=== PATIENT | male | born 1940 | race Caucasian/White ===

== ENCOUNTER → 2020-03-13 10:58 | Outpatient (BNVA) | payer MEDICARE, OTHER, SELFPAY | PROVIDERS: Family Provider Family Medicine; PCP Family Medicine; Visit Provider Registered Nurse | DX: I10 Essential (primary) hypertension (principal); Z00.00 Encounter for general adult medical examination without abnormal findings; N40.0 Benign prostatic hyperplasia without lower urinary tract symptoms; E11.9 Type 2 diabetes mellitus without complications; K21.9 Gastro-esophageal reflux disease without esophagitis | CPT/HCPCS: 80053; 83036; 84153; 85025 ==

== ENCOUNTER → 2020-08-02 10:25 | Outpatient (BNVA) | payer MEDICARE, OTHER, SELFPAY | PROVIDERS: Family Provider Family Medicine; PCP Family Medicine; Visit Provider Nurse Practitioner | DX: R39.9 Unspecified symptoms and signs involving the genitourinary system (principal) | CPT/HCPCS: 81000; 87086 ==

== ENCOUNTER → 2020-08-15 14:53 | Outpatient (BNVA) | payer MEDICARE, OTHER, SELFPAY | PROVIDERS: Family Provider Family Medicine; PCP Family Medicine; Visit Provider Nurse Practitioner Family | DX: R31.9 Hematuria, unspecified (principal); R30.0 Dysuria | CPT/HCPCS: 80053; 81000; 87077; 87086; 87186 ==

== ENCOUNTER → 2020-08-28 14:06 | Outpatient (BNVA) | payer MEDICARE, OTHER, SELFPAY | PROVIDERS: Family Provider Family Medicine; PCP Family Medicine; Visit Provider Nurse Practitioner Family | DX: R31.9 Hematuria, unspecified (principal) | CPT/HCPCS: 80053 ==

== ENCOUNTER → 2021-01-20 11:10 | Outpatient (BNVA) | payer MEDICARE, OTHER, SELFPAY | PROVIDERS: Family Provider Family Medicine; PCP Family Medicine; Visit Provider Registered Nurse | DX: N39.0 Urinary tract infection, site not specified (principal) | CPT/HCPCS: 81000 ==

== ENCOUNTER → 2021-02-21 09:51 | Outpatient (BNVA) | payer MEDICARE, OTHER, SELFPAY | PROVIDERS: Family Provider Family Medicine; PCP Family Medicine; Visit Provider Registered Nurse | DX: Z00.00 Encounter for general adult medical examination without abnormal findings (principal); E11.9 Type 2 diabetes mellitus without complications; N40.0 Benign prostatic hyperplasia without lower urinary tract symptoms; Z13.6 Encounter for screening for cardiovascular disorders | CPT/HCPCS: 80053; 80061; 81000; 83036; 85025; G0103 ==

== ENCOUNTER → 2022-06-30 09:28 | Outpatient (BNVA) | payer MEDICARE, OTHER, SELFPAY | PROVIDERS: Family Provider Family Medicine; PCP Registered Nurse; Visit Provider Registered Nurse | DX: E11.9 Type 2 diabetes mellitus without complications (principal); E78.5 Hyperlipidemia, unspecified; I10 Essential (primary) hypertension; F51.05 Insomnia due to other mental disorder; F40.9 Phobic anxiety disorder, unspecified; Z00.00 Encounter for general adult medical examination without abnormal findings; Z13.6 Encounter for screening for cardiovascular disorders; N40.0 Benign prostatic hyperplasia without lower urinary tract symptoms | CPT/HCPCS: 80053; 80061; 83036; 85025 ==

== ENCOUNTER → 2023-07-16 13:42 | Outpatient (BNVA) | payer MEDICARE, OTHER, SELFPAY | PROVIDERS: Family Provider Family Medicine; PCP Registered Nurse; Visit Provider Registered Nurse | DX: J06.9 Acute upper respiratory infection, unspecified (principal) | CPT/HCPCS: 87400; 87426 ==

== ENCOUNTER 2024-12-25 17:23 | Inpatient (IN) | payer MEDICARE, OTHER, SELFPAY ==
[2024-12-25] VITALS (7 sets, daily range): BP systolic 99–146; BP diastolic 50–96; PULSE 78–100; RESP 17–30; TEMP 36.6–37.3; O2SAT 93–95
--- NOTE | 2024-12-25 17:26 | ECG_ITS ---
[facility] Test Date: 2024-12-25 Pat Name: Maldonado Madrigal Department: Room: Gender: Male Boarder Steam: : 1940 Requested By: Fallon Carl Order Number: [id number] Timothy MD: Charla De Leon M.D. Measurements Intervals [place] Rate: 92 P: 37 MI: 153 QRS: 76 QRSD: 134 T: -9 QT: 371 QTc: 460 Interpretive Statements SINUS RHYTHM LEFT BUNDLE BRANCH BLOCK [120+ ms QRS DURATION, 80+ ms Q/S IN V1/V2, 85+ ms R IN I/aVL/V5/V6] Compared to ECG 03/01/2017 00:38:47 No significant changes Electronically Signed On 12-25-2024 20:26:40 SUSPECT ARTIST by Charla De Leon M.D. [email or web address]
--- NOTE | 2024-12-25 17:27 | XRR_ITS ---
PROCEDURE INFORMATION: Exam: XR Chest Exam date and time: 12/25/2024 5:31 PM Age: 84 years old Clinical indication: Other: Weakness TECHNIQUE: Imaging protocol: Radiologic exam of the chest. Views: 1 view. COMPARISON: No relevant prior studies available. FINDINGS: Lungs: No focal consolidation. Compressive atelectasis at the left base. Pleural spaces: Small left pleural effusion. Heart/Mediastinum: No cardiomegaly. Prominent AP window. Calcified granulomas of the left hilum. Vasculature: Tortuous calcified aorta. Bones/joints: Degenerative change of the spine and shoulders. XR/XR chest 1V portable [id number] IMPRESSION: Small left pleural effusion with compressive atelectasis. Prominent AP window. Broad differential to include lymphadenopathy. Consider CT for further evaluation.
--- NOTE | 2024-12-25 17:32 | ED_ITS ---
HPI - Male Genitourinary 2 General: Chief complaint: ER Hold Stated complaint: weakness, Uti x 1 day Time Seen by Provider: 12/25/24 17:25 History of Present Illness: This is an 84-year-old man with a history of BPH and type 2 diabetes and hypertension who presents to the emergency room with weakness, confusion and concern for fever. He was diagnosed with a UTI yesterday and has received 1 dose of antibiotic. Apparently he became worse today so family called EMS. At this time he does not appear confused. He is alert and oriented. No focal motor deficits. He has had some rigors. Related Data Previous Rx's ?Medication ?Instructions ?Recorded lancets 28 gauge (FreeStyle #100 ea 01/17/21 Lancets) nitroglycerin 0.4 mg sublingual 0.4 mg sublingual Q5M PRN chest 12/12/21 tablet pain #20 tabs Nebulizer with supplies #1 ea 07/16/23 finasteride 5 mg tablet See Rx Instructions .Route 0 01/04/24 .COMPLEX #90 tabs lisinopril 10 mg tablet See Rx Instructions .Route 0 01/04/24 .COMPLEX #90 tabs metoprolol tartrate 50 mg tablet See Rx Instructions . Route 01/04/24 .COMPLEX #180 tabs mirtazapine 45 mg tablet See Rx Instructions .Route 0 01/04/24 .COMPLEX #90 tabs simvastatin 40 mg tablet See Rx Instructions .Route 0 01/04/24 .COMPLEX #90 tabs tamsulosin 0.4 mg capsule See Rx Instructions .Route 0 01/04/24 .COMPLEX #90 caps metformin 500 mg tablet 500 mg PO BID 90 days #180 t abs 09/06/24 omeprazole 20 mg capsule,delayed See Rx Instructions . Route 09/06/24 release .COMPLEX #180 caps Allergies Allergy/AdvReac Type Severity Reaction Status Date / Time sulfamethoxazole (From Allergy swelling Verified 09/06/24 08:55 Bactrim) trimethoprim (From Bactrim) Allergy swelling Verified 09/06/24 08:55 [facility] ED 2 [facility]: Medical History (Updated 12/25/24 @ 20:43 by Fallon Moya MD) BPH (benign prostatic hyperplasia) Type 2 diabetes mellitus Family History Other Cancer Social History Smoking and tobacco/nicotine status: never used tobacco/nicotine Alcohol intake: never Substance/Drug Use: never Adopted: No Caregiver/support person: No Lives independently: No Household members: spouse Marital status: Do you think of yourself as: Straight/Heterosexual Current gender identity: Male Physical Exam 2 Narrative: EXAM NARRATIVE: General: Alert, no acute distress. Skin: Warm, dry. Head: Normocephalic, atraumatic. Neck: Supple, trachea midline. Eye: Extraocular movements are intact. Ears, nose, mouth and throat: Dry oral mucosa Cardiovascular: Regular, Normal peripheral perfusion. Respiratory: Lungs are clear to auscultation, respirations are non-labored, breath sounds are equal, Symmetrical chest wall expansion. Gastrointestinal: Soft, Nontender, Non distended Musculoskeletal: Normal ROM, no deformity. Neurological: Alert and oriented, No focal neurological deficit observed. Psychiatric: Cooperative, appropriate mood & affect. Course 2 Vital Signs: Vital signs: Vital Signs Temperature 99.1 F 12/25/24 19:00 Pulse Rate 92 12/25/24 20:30 Respiratory Rate 17 12/25/24 19:00 Blood Pressure 101/50 12/25/24 19:30 Pulse Oximetry 95 12/25/24 20:30 Oxygen Delivery Me thod Room Air 12/25/24 20:30 MDM - Male Medical Decision Making Medical decision making: Differential diagnosis for patient presenting with generalized weakness including but not limited to and based on the above HPI, review of systems and physical exam: Sepsis. Dehydration. Renal failure. Electrolyte abnormalities. Anemia. Congestive heart failure. Hypotension. Coronary syndrome. Hepatitis. Cirrhosis. Infections such as pneumonia, urinary tract infection, [place] illness, Cellulitis, Viral infections including influenza and Covid-19. Workup: labwork and lab/exam driven imaging ordered to evaluate, rule in and rule out above pathologies. Chest x-ray: Left pleural effusion, no obvious acute infiltrates. No pneumothorax. This was reviewed and interpreted by myself the emergency room physician. I also reviewed the radiology report. Lab Review: Laboratory results were reviewed and interpreted by myself the emergency room physician. Significant leukocytosis with a white count of 17,000. No anemia. No renal failure. Urine does appear significantly infected. Lactate is negative. CT head: No acute intracranial process. no intracranial hemorrhage, no evidence of infarct. no evidence of acute fracture.This was reviewed and interpreted by myself the ER physician. I reviewed the patient's medical record. Reexamination: Patient still has very dry oral mucosa. Temperatures come down. Blood pressure still little bit soft. Second liter of fluids is being given. Consultation: I spoke with Dr. Joiner who is on-call for the hospital service who agrees to admission. Assessment and plan: UTI Possible sepsis Dehydration Weakness Falls ?IV cefepime and 2 L normal saline bolus. -2 L normal saline bolus. Fluid volumes based on ideal body weight. -Antibiotics as above -Sepsis quality measures. -Lactic acid with a reflex was ordered. -Blood cultures were ordered. -I discussed the patient with the hospitalist on-call who is admitting the patient. - Discussed findings and plan with patient. Answered any questions. - All laboratory values were reviewed and interpreted personally by myself, the ER physician - All imaging was reviewed and interpreted personally by myself, the ER physician. - Evaluation and treatment of this problem were appropriate in the emergency setting Lab Data 12/25/24 17:52 12/25/24 17:52 Radiology Impressions Chest X-Ray 12/25/24 17:27 IMPRESSION: Small left pleural effusion with compressive atelectasis. Prominent AP window. Broad differential to include lymphadenopathy. Consider CT for further evaluation. Head CT 12/25/24 17:44 IMPRESSION: No acute intracranial findings. Laboratory Results WBC 17.10 10^3/uL (3.29-11.43) H 12/25/24 17:52 RBC 4.02 10^6/uL (3.85-5.65) 12/25/24 17:52 Hgb 12.20 g/dL (11.27-16.99) 12/25/24 17:52 Hct 36.4 % (37-53) L 12/25/24 17:52 MCV 90.5 fl (82-101) 12/25/24 17: MCH 30.3 pg (27-33) 12/25/24 17: MCHC 33.5 g/dL (30-55) 12/25/24 17: RDW 13.0 % (12.1-15.1) 12/25/24 17:52 Plt Count 148 10^3/cmm (157-399) L 12/25/24 17:52 MPV 9.9 fL (7.4-10.4) 12/25/24 17:52 Neut % (Auto) 86.4 % 12/25/24 17:52 Lymph % (Auto) 4.5 % 12/25/24 17:52 [place] % (Auto) 8.3 % 12/25/24 17:52 Eos % (Auto) 0.1 % 12/25/24 17:52 Baso % (Auto) 0.1 % 12/25/24 17:52 Neut # (Auto) 14.79 10^3/uL (1.8-7.7) H 12/25/24:52 Lymph # (Auto) 0.8 10^3/uL (0.8-4.8) 12/25/24 17:52 [place] # (Auto) 1.4 10^3/uL (0.2-0.9) H 12/25/24: Eos # (Auto) 0.0 10^3/uL (0.0-0.8) 12/25/24 17:52 Baso # (Auto) 0.0 10^3/uL (0.0-0.1) 12/25/24: Nucleated RBC % (auto) 0 % 12/25/24: Nucleated RBCs # 0.0 /100WBC 12/25/24 17:52 Sodium 131 mmol/L (136-145) L 12/25/24 17:52 Potassium 3.7 mmol/L (3.5-5.1) 12/25/24:52 Chloride 98 mmol/L (98-107) 12/25/24 17:52 Carbon Dioxide 19 mmol/L (22-29) L 12/25/24 17:52 Anion Gap 17.7 (5-19) 12/25/24 17:52 BUN 22 mg/dL (8-23) 12/25/24 17:52 Creatinine 0.8 mg/dL (0.7-1.2) 12/25/24 17:52 GFR Calculation Not Reportable 12/25/24 17:52 Glucose 162 mg/dL (65-115) H 12/25/24 17:52 Calculated Osmolality 279 mOsm/kg (285-295) L 12/25/24 17:52 Lactic Acid 1.3 mmol/L (0.5-2.2) 12/25/24 17:52 Calcium 8.7 mg/dL (8.5-10.5) 12/25/24 17:52 Total Bilirubin 0.6 mg/dL (0.15-1.2) 12/25/24 17:52 AST 12 U/L (0-40) 12/25/24 17:52 ALT 10 U/L (0-41) 12/25/24 17:52 Alkaline Phosphatase 62 U/L (40-130) 12/25/24 17:52 Creatine Kinase 107 U/L (39-308) 12/25/24 17:52 C-Reactive Protein 177.0 mg/L (0.0-4.9) H 12/25/24 17:52 Total Protein 6.0 g/dL (6.6-8.7) L 12/25/24 17:52 Albumin 3.5 g/dL (3.5-5.2) 12/25/24 17:52 Globulin 2.5 g/dL (1.3-4.6) 12/25/24 17:52 Procalcitonin 0.17 ng/mL (0-0.5) 12/25/24 17:52 Urine Color Yellow (Yellow) 12/25/24 19:40 Urine Appearance Clear (CLEAR) 12/25/24 19:40 Urine pH 5.5 (5-7) 12/25/24 19:40 Ur Specific [place] 1.010 (1.005-1.030) 12/25/24 19:40 Urine Protein Trace (Negative) A 12/25/24 19:40 Urine Glucose (UA) Negative (Normal) 12/25/24 19:40 Urine Ketones 1+ (Negative) H 12/25/24 19:40 Urine Blood Negative (Negative) 12/25/24 19:40 Urine Nitrate Negative (Negative) 12/25/24 19:40 Urine Bilirubin Negative (Negative) 12/25/24 19:40 Urine Urobilinogen 0.2 mg/dL (Negative) 12/25/24 19:40 Ur Leukocyte Esterase 2+ (Negative) A 12/25/24 19:40 Urine RBC 0-2 /hpf (0-2) 12/25/24 19:40 Urine WBC 51-100 /hpf (0-5) H 12/25/24 19:40 Ur Squamous Epith Cells 0-5 /hpf (0-5) 12/25/24 19:40 Amorphous Sediment Not Reportable 12/25/24 19:40 Urine Bacteria None seen /hpf (NONE) 12/25/24 19:40 Hyaline Casts 2.05 /lpf 12/25/24 19:40 Influenza A (PCR) Negative (Negative) 12/25/24 17:49 Influenza Type B (PCR) Negative (Negative) 12/25/24 17:49 RSV (PCR) Negative (Negative) 12/25/24 17:49 SARS-CoV-2 (PCR) Negative (Negative) 12/25/24 17:49 All radiology interpretation(s) finalized by discharge Discharge Plan Discharge Patient Disposition: Admitted As Inpatient Clinical Impression: Urinary tract infection, Sepsis, Acute metabolic encephalopathy, Fever, Weakness, Multiple falls Condition: Stable Coding Level of Care Code ED Patient Case Manager for Leticia Myers
--- NOTE | 2024-12-25 17:44 | CTR_ITS ---
PROCEDURE INFORMATION: Exam: CT Head Without Contrast Exam date and time: 12/25/2024 6:06 PM Age: 84 years old Clinical indication: Injury or trauma; Fall; Blunt trauma (contusions or hematomas); Without loss of consciousness; Additional info: Fall, head injury TECHNIQUE: Imaging protocol: Computed tomography of the head without contrast. Radiation optimization: All CT scans at this facility use at least one of these dose optimization techniques: automated exposure control; mA and/or kV adjustment per patient size (includes targeted exams where dose is matched to clinical indication); or iterative reconstruction. COMPARISON: No relevant prior studies available. RADIATION DOSE METRICS: Total DLP (mGy-cm): 1114.32 FINDINGS: Brain: Mild parenchymal volume loss. Periventricular and subcortical hypodensity, nonspecific, but likely to be chronic small vessel ischemic change in a patient of this age group. Cerebral ventricles: No ventriculomegaly. Paranasal sinuses: Scant mucosal thickening within the right posterior ethmoid sinus. Diminutive right frontal sinus. Mastoid air cells: Visualized mastoid air cells are well aerated. Bones: Unremarkable. No acute fracture. Soft tissues: Unremarkable. Other findings: Cerumen impaction [id number]. CT/CT head wo con* [id number] IMPRESSION: No acute intracranial findings.
[2024-12-25 18:09] LABS: Basophils % 0.1 %; Eosinophils % 0.1 %; Hematocrit 36.4 % (37-53); Lymphocytes # 0.8 10^3/uL (0.8-4.8); Lymphocytes % 4.5 %; Mean Corpuscular HGB Conc 33.5 g/dL (30-55); Mean Corpuscular Hemoglobin 30.3 pg (27-33); Mean Corpuscular Volume 90.5 fl (82-101); Mean Platelet Volume 9.9 fL (7.4-10.4); Monocytes # 1.4 10^3/uL (0.2-0.9); Monocytes % 8.3 %; Neutrophils # 14.79 10^3/uL (1.8-7.7); Neutrophils % 86.4 %; Nucleated Red Blood Cells % 0 %; Platelet Count 148 10^3/cmm (157-399); Red Blood Count 4.02 10^6/uL (3.85-5.65)
[2024-12-25 18:34] LABS: Alanine Aminotransferase 10 U/L (0-41); Albumin Level 3.5 g/dL (3.5-5.2); Alkaline Phosphatase 62 U/L (40-130); Anion Gap 17.7 (5-19); Aspartate Amino Transferase 12 U/L (0-40); Blood Urea Nitrogen 22 mg/dL (8-23); Calcium 8.7 mg/dL (8.5-10.5); Carbon Dioxide 19 mmol/L (22-29); Chloride 98 mmol/L (98-107); Creatine Phosphokinase 107 U/L (39-308); Creatinine Clr Calc Pharmacy 64.2717; Globulin 2.5 g/dL (1.3-4.6); Glucose 162 mg/dL (65-115); Lactic Sepsis W/Reflex 1.3 mmol/L (0.5-2.2); Osmolality Calculated 279 mOsm/kg (285-295); Potassium 3.7 mmol/L (3.5-5.1); Sodium 131 mmol/L (136-145); Total Bilirubin 0.6 mg/dL (0.15-1.2)
[2024-12-25 18:39] LABS: Procalcitonin 0.17 ng/mL (0-0.5)
[2024-12-25] MEDS: acetaminophen 1,000 MG/100 ML PIGGYBACK 400 MG IV (18:44)
[2024-12-25] MEDS: cefepime 2,000 mg SDV 2000 MG IVP (18:45)
[2024-12-25 19:06] LABS: Influenza A NEGATIVE (Negative); Influenza B NEGATIVE (Negative); Respiratory Syncytial Virus Ce NEGATIVE (Negative); SARS-CoV-2 PCR NEGATIVE (Negative)
[2024-12-25] MEDS: sodium chloride 0.9% 1,000 ML 999 ML IV ×2 (19:20→21:02)
[2024-12-25 20:06] LABS: Bilirubin Urine Negative (Negative); Blood Urine Negative (Negative); Glucose Urine UA Negative (Normal); Ketones Urine 1+ (Negative); Leukocyte Esterase Urine 2+ (Negative); Nitrate Urine Negative (Negative); Protein Urine Trace (Negative); Urine Appearance Clear (CLEAR); Urine Color Yellow (Yellow); Urobilinogen Urine 0.2 mg/dL (Negative); pH Urine 5.5 (5-7)
[2024-12-25 20:09] LABS: Bacteria Urine None Seen /hpf; Hyaline Casts Urine 2.05 /lpf; RBC Urine 0-2 /hpf (0-2); Squamous Epithelial Cell Urine 0-5 /hpf (0-5); WBC Urine 51-100 /hpf (0-5)
[2024-12-25 20:20] LABS: Add Urine Culture? Yes
--- NOTE | 2024-12-25 20:37 | P.HP_ITS ---
Providers/Chief Complaint 2 Primary Care Provider: KELLY Ann Chief Complaint: weakness, Uti x 1 day History of Present Illness Maldonado Madrigal is a 84 year old male who came from home with chief complaint of altered mental status such as confusion. Patient lives alone, family brought him in because of worsening of confusion. Patient seems to have cognitive impairment,. He has history of hypertension, cognitive impairment, BPH, dyslipidemia and diabetes. Patient is stating that he has been noticing generalized weakness and fatigue for last 2 to 3 days, he is endorsing subjective fever but no dysuria, stating that he has noticed some right-sided flank pain in last 2 to 3 days as well, no nausea, vomiting diarrhea chest pain or shortness of breath. He has been noticing dry cough today as well. Respiratory panel seems to be negative at this point, chest x-ray showing atelectasis Patient is currently on room air Workup consistent with UTI versus pyelonephritis At the time of my evaluation he is AOx4, GCS 15 NIH 0 He is able to tell me name the president, his name, his date of , he knows that he is in the hospital, Review of Systems 2 Const: Reports: fever(s) and chills Eyes: Denies: change in vision ENMT: Denies: throat pain Card: Denies: chest pain Resp: Denies: dyspnea GI: Denies: abdominal pain : Reports: flank pain Medications/Allergies Home Medications ?Medication ?Instructions ?Recorded ?Confirmed ?Last Taken ?Type lancets 28 gauge (FreeStyle #100 ea 01/17/21 09/06/24 Unknown Rx Lancets) nitroglycerin 0.4 mg sublingual 0.4 mg sublingual Q5M PRN chest 12/12/21 09/06/24 Unknown Rx tablet pain #20 tabs Nebulizer with supplies #1 ea 07/16/23 09/06/24 Unkn own Rx finasteride 5 mg tablet See Rx Instructions .Route 0 01/04/24 09/06/24 Unknown Rx .COMPLEX #90 tabs lisinopril 10 mg tablet See Rx Instructions .Route 0 01/04/24 09/06/24 Unknown Rx .COMPLEX #90 tabs metoprolol tartrate 50 mg tablet See Rx Instructions . Route 01/04/24 09/06/24 Unknown Rx .COMPLEX #180 tabs mirtazapine 45 mg tablet See Rx Instructions .Route 0 01/04/24 09/06/24 Unknown Rx .COMPLEX #90 tabs simvastatin 40 mg tablet See Rx Instructions .Route 0 01/04/24 09/06/24 Unknown Rx .COMPLEX #90 tabs tamsulosin 0.4 mg capsule See Rx Instructions .Route 0 01/04/24 09/06/24 Unknown Rx .COMPLEX #90 caps metformin 500 mg tablet 500 mg PO BID 90 days #180 t abs 09/06/24 09/06/24 Unknown Rx omeprazole 20 mg capsule,delayed See Rx Instructions . Route 09/06/24 09/06/24 Unknown Rx release .COMPLEX #180 caps Allergies Allergy/AdvReac Type Severity Reaction Status Date / Time sulfamethoxazole (From Allergy swelling Verified 09/06/24 08:55 Bactrim) trimethoprim (From Bactrim) Allergy swelling Verified 09/06/24 08:55 PFSH Acute 2 PFSH: Medical History BPH (benign prostatic hyperplasia) Type 2 diabetes mellitus Family History Other Cancer Social History Smoking and tobacco/nicotine status: never used tobacco/nicotine Alcohol intake: never Substance/Drug Use: never Adopted: No Caregiver/support person: No Lives independently: No Household members: spouse Marital status: Do you think of yourself as: Straight/Heterosexual Current gender identity: Male Vitals/I&O/Wt Last Vital Signs Temp 99.1 F 12/25/24 19:00 Pulse 78 12/25/24 20:00 Resp 17 12/25/24 19:00 BP 101/50 12/25/24 19:30 Pulse Ox 93 12/25/24 20:00 O2 Del Method Room Air 12/25/24 20:00 12/25/24 12/25/24 12/25/24 06:59 14:59 22:59 Intake Total 100 / 100 Balance 100 / 100 Weight last 48 hrs Weight 72.575 kg Physical Exam 2 Narrative: Clinically dehydrated Right-sided CVA tenderness GCS 15 NIH 0 AOx4 Dehydrated S1, S2 Currently on room air Nonpruritic rash on the back likely heat rash S1, S2 Patient has mild rhonchi, dry cough Nontender abdomen No skin mottling No active signs of confusion Cap refill less than 3 seconds Heart rate around 90s Currently afebrile No signs of meningitis of confusion during my evaluation No skin mottling or discoloration Trace edema around ankles Sepsis: Is patient septic: Yes Focused sepsis exam performed: Yes Date exam was performed: 12/25/24 Time exam was performed: 20:43 Data 12/25/24 17:52 12/25/24 17:52 Micro: Microbiology 12/25/24 17:52 Blood Culture - Preliminary Blood SPECIMEN COLLECTED 12/25/24 17:52 Blood Culture - Preliminary Blood SPECIMEN COLLECTED A&P Assessment and plan (1) Type 2 diabetes mellitus: Qualifiers: Diabetes mellitus group home insulin use: without petroleum terminal plant operator use Diabetes mellitus complication status: without complication Qualified Code(s): E11.9 - Type 2 diabetes mellitus without complications (2) Urinary tract infection: (3) BPH (benign prostatic hyperplasia): Qualifiers: Lower urinary tract symptom presence: symptoms absent Qualified Code(s): N40.0 - Benign prostatic hyperplasia without lower urinary tract symptoms (4) Sepsis: (5) Acute metabolic encephalopathy: (6) Cognitive decline: (7) Weakness: (8) Multiple falls: Plan Metabolic encephalopathy secondary to UTI Start ceftriaxone for the source of UTI Previous urine culture showed E. coli Patient is showing sign of sepsis Septic bolus administered Criteria met with tachypnea tachycardia leukocytosis, no significant high lactic acid Clinically patient looks dehydrated Continue IV fluids overnight Requested blood and urine culture NIH 0, AOx4 No signs of meningitis Patient lives alone, has underlying cognitive impairment as well Active metabolic encephalopathy Anticipate improvement in next 48 hours Continue IV fluids for now, check TSH B12 Request physical therapy GERD: Continue Protonix Hypertension: Continue lisinopril and metoprolol Consistent carb diet with insulin sliding scale BPH continue tamsulosin DVT prophylaxis Lovenox PDMP PDMP Reviewed: Not Reviewed Attestations 2 Medical Necessity Statement*: Anticipating more than 2 midnights Diagnoses Type 2 diabetes mellitus without complication, without long-term current use of insulin E11.9 Diabetes mellitus group home insulin use: without petroleum terminal plant operator use Diabetes mellitus complication status: without complication Urinary tract infection N39.0 Benign prostatic hyperplasia without lower urinary tract symptoms N40.0 Lower urinary tract symptom presence: symptoms absent Sepsis A41.9 Acute metabolic encephalopathy G93.41 Cognitive decline R41.89 Weakness R53.1 Multiple falls R29.6
[2024-12-25 21:12] LABS: Procalcitonin 0.15 ng/mL (0-0.5)
[2024-12-25 21:50] LABS: Thyroid Stimulating Hormone 1.29 uIU/mL (0.27-4.20)
[2024-12-25] MEDS: enoxaparin 40 mg/0.4 mL Syringe SUBCUT (21:57)
[2024-12-25 23:58] LABS: Glucose Point of Care 152 mg/dL (70-110)
[2024-12-26] VITALS (8 sets, daily range): BP systolic 101–142; BP diastolic 54–69; PULSE 83–103; RESP 13–43; TEMP 36.4–37.4; O2SAT 90–99
[2024-12-26] MEDS: sodium chloride 0.9% 1,000 ML 75 ML IV (00:05)
[2024-12-26] MEDS: cefTRIAXone 2,000 mg SDV 2000 MG IVP ×2 (00:06→23:25)
[2024-12-26] MEDS: metoprolol tartrate 25 mg Tablet PO ×3 (00:06→21:02)
[2024-12-26 01:48] LABS: Vitamin B12 219 pg/mL (232-1245)
[2024-12-26 03:09] LABS: Basophils % 0.1 %; Hematocrit 39.4 % (37-53); Lymphocytes # 0.8 10^3/uL (0.8-4.8); Lymphocytes % 5.6 %; Mean Corpuscular Hemoglobin 30.4 pg (27-33); Mean Corpuscular Volume 98.3 fl (82-101); Mean Platelet Volume 10.2 fL (7.4-10.4); Monocytes # 1.1 10^3/uL (0.2-0.9); Monocytes % 7.4 %; Neutrophils # 12.51 10^3/uL (1.8-7.7); Neutrophils % 86.2 %; Nucleated Red Blood Cells % 0 %; Platelet Count 131 10^3/cmm (157-399); Red Blood Count 4.01 10^6/uL (3.85-5.65); Red Cell Distribution Width 13.1 % (12.1-15.1)
[2024-12-26 03:37] LABS: Anion Gap 18.8 (5-19); Blood Urea Nitrogen 15 mg/dL (8-23); Calcium 8.4 mg/dL (8.5-10.5); Carbon Dioxide 17 mmol/L (22-29); Chloride 106 mmol/L (98-107); Glucose 126 mg/dL (65-115); Magnesium 1.7 mg/dL (1.7-2.3); Osmolality Calculated 288 mOsm/kg (285-295); Potassium 3.8 mmol/L (3.5-5.1); Sodium 138 mmol/L (136-145)
[2024-12-26 06:19] LABS: Glucose Point of Care 118 mg/dL (70-110)
--- NOTE | 2024-12-26 07:48 | PC.NURSE ---
Patient resting in bed. Easily arousable. Denies needs this am. Will continue to monitor.
[2024-12-26] MEDS: lisinopril 10 mg Tablet PO (09:17)
[2024-12-26] MEDS: sennosides-docusate Tablet 1 TAB PO (09:17)
[2024-12-26] MEDS: finasteride 5 mg Tablet PO (09:17)
[2024-12-26] MEDS: tamsulosin 0.4 mg Capsule PO (09:18)
[2024-12-26] MEDS: acetaminophen 500 mg Tablet PO (11:07)
[2024-12-26 11:30] LABS: Glucose Point of Care 137 mg/dL (70-110)
--- NOTE | 2024-12-26 11:42 | ECG_ITS ---
[facility]24[facility]26 Pat Name: Maldonado Madrigal Department: Room: 111 Gender: Male Safety Representative: : 1940 Requested By: Kan Guthrie Order Number: [id number] Reading MD: KASSY BELTRAN Measurements Intervals [place] Rate: 85 P: 34 AR: 154 QRS: 40 QRSD: 137 T: 76 QT: 374 QTc: 446 Interpretive Statements SINUS RHYTHM LEFT BUNDLE BRANCH BLOCK [120+ ms QRS DURATION, 80+ ms Q/S IN V1/V2, 85+ ms R IN I/aVL/V5/V6] Compared to ECG 12/25/2024 17:40:48 No significant changes Electronically Signed On 01-02-2025 23:56:29 FIRE PROTECTION EQUIPMENT TECHNICIAN by KASSY BELTRAN [email or web address]
--- NOTE | 2024-12-26 12:12 | USCV_ITS ---
Maldonado Madrigal Age: 84 Gender: M : 1940 Exam Date: 12/26/2024 13:39 Ordering Phys: Kan Guthrie MD Technologist: [place] [facility] [place]: chf BP: 126 / 54 HR: 96 Rhythm: Sinus Technical Quality: Adequate MEASUREMENTS (Male / Female) Normal Values 2D ECHO LV Diastolic Diameter PLAX 4.4 cm 4.2 - 5.9 / 3.9 - 5.3 cm IVS Diastolic Thickness 1.2 cm 0.6 - 1.0 / 0.6 - 0.9 cm IVS Systolic Thickness 1.5 cm LVPW Diastolic Thickness 1.4 cm 0.6 - 1.0 / 0.6 - 0.9 cm LVPW Systolic Thickness 1.6 cm LVOT Diameter 2.0 cm LV Ejection Fraction 2D Teich 70.0 % LV Ejection Fraction MOD 4C 67.9 % LV Ejection Fraction MOD 2C 41.3 % LV Ejection Fraction 2C AL 42.9 % LA Diameter 3.6 cm RA Systolic Volume 4C AL 23.6 ml RA Systolic Volume 4C MOD 23.4 ml Aorta at Sinotubular Diameter 2.5 cm M-MODE LA Ao Ratio MM 1.2 AV Cusp Separation MM 0.9 cm DOPPLER AV Peak Velocity 255.0 cm/s LVOT Peak Velocity 88.0 cm/s AV Area Cont Eq vti 1.3 cm squared AV Area Cont Eq pk 1.1 cm squared MV Peak Velocity 117.0 cm/s MV Area PHT 5.0 cm squared Mitral E to A Ratio 1.0 TR Peak Velocity 296.0 cm/s TR Peak Gradient 35.0 mmHg Right Atrial Pressure 3.0 mmHg Pulmonary Artery Systolic Pressu 38.0 mmHg PV Peak Velocity 237.0 cm/s FINDINGS Left Ventricle Left ventricle is normal in size. LV systolic function is normal with EF of 55-60%. No regional wall motion abnormalities. Right Ventricle Normal in size and function Right Atrium Normal in size Left Atrium Normal in size Mitral Valve Structurally normal mitral valve. Moderate mitral regurgitation Aortic Valve Aortic valve is thickened and calcified. Mild aortic stenosis with aortic valve area of 1.32cm2 and mean gradient across aortic valve of 12mmHg. Mild aortic regurgitation. Tricuspid Valve Mild tricuspid regurgitation. RVSP is 35-40mmHg. Mild pulmonary hypertension. Pulmonic Valve Not well visualized Pericardium Normal Aorta Normal in size IVC Not well visualized. CONCLUSIONS LV systolic function is normal with EF of 55-60% Moderate mitral regurgitation Mild aortic stenosis. Mild aortic regurgitation Mild tricuspid regurgitation. Mild pulmonary hypertension Wil Campbell MD (Electronically Signed) Final Date: 26 December 2024 21:08 S
--- NOTE | 2024-12-26 12:14 | XRR_ITS ---
PROCEDURE INFORMATION: Exam: XR Chest Exam date and time: 12/26/2024 12:35 PM Age: 84 years old Clinical indication: Shortness of breath; Additional info: SOB TECHNIQUE: Imaging protocol: Radiologic exam of the chest. Views: 1 view. COMPARISON: CR (CHEST, ) 12/25/2024 5:31 PM FINDINGS: Lungs: Mild atelectasis or infiltrate in the left lower lobe. Pleural spaces: Unremarkable. No pleural effusion. No pneumothorax. Heart/Mediastinum: Unremarkable. No cardiomegaly. Bones/joints: Unremarkable. XR/XR chest 1V portable [id number] IMPRESSION: No acute findings.
[2024-12-26 12:40] LABS: Troponin(5th) Baseline 40 ng/L (0-15)
[2024-12-26] MEDS: FUROsemide 10 mg/mL SDV 4mL 40 MG IVP (12:44)
[2024-12-26] MEDS: cyanocobalamin 1,000 mcg Tablet 1000 MCG PO (12:44)
[2024-12-26] MEDS: AZITHROMYCIN ADD-Vantage 500 MG in 0.9% NaCl ADD-Vantage 250 ML 250 MG IV (12:45)
[2024-12-26 13:04] LABS: NT Pro B Type Natriuretic Pept 2833 pg/mL (0-450)
[2024-12-26] MEDS: morphine 4 mg/mL SDV 1 mL 2 MG IVP ×2 (13:20→20:31)
--- NOTE | 2024-12-26 13:33 | ECG_ITS ---
[facility] Date: 2024-12-26 Pat Name: Maldonado Madrigal Department: Room: 111 Gender: Male Frame And Scrap Crusher: : 1940 Requested By: Kan Guthrie Order Number: [id number] Reading MD: KASSY BELTRAN Measurements Intervals [place] Rate: 84 P: 29 [place]: 148 QRS: 39 QRSD: 137 T: 180 QT: 375 QTc: 445 Interpretive Statements SINUS RHYTHM LEFT BUNDLE BRANCH BLOCK [120+ ms QRS DURATION, 80+ ms Q/S IN V1/V2, 85+ ms R IN I/aVL/V5/V6] Compared to ECG 12/26/2024 11:42:04 No significant changes Electronically Signed On 01-02-2025 23:56:00 MILLINER HELPER by KASSY BELTRAN [email or web address]
--- NOTE | 2024-12-26 14:14 | PM.PN ---
Subjective Subjective: - Patient was seen this morning, denies any fevers, no chills, but does complain of shortness of breath, does have a cough, does report generalized weakness, decreased ability to walk due to weakness of both legs, no focal weakness no facial droop, no slurring of his words Vitals/I&O/Wt Last Vital Signs Temp 99.3 F 12/26/24 08:00 Pulse 93 12/26/24 08:00 Resp 24 H 12/26/24 13:20 BP 125/54 12/26/24 08:00 Pulse Ox 95 12/26/24 08:00 O2 Del Method Room Air 12/26/24 08:00 12/25/24 12/26/24 12/26/24 22:59 06:59 14:59 Intake Total 1100 / 1100 1000 / 2100 1170 / 1170 Output Total 500 / 500 550 / 1050 200 / 200 Balance 600 / 600 450 / 1050 970 / 970 Weight last 48 hrs Weight 77.111 kg Weight 76.702 kg Weight 72.575 kg Physical Exam Const: COMMON NORMALS: no acute distress HENMT: OTHER: Alert oriented x 2, following all commands Resp: COMMON NORMALS: normal respiratory effort, No retractions and No use of accessory muscles AUSCULTATION: crackles and wheezes Cardio: COMMON NORMALS: regular rate, regular rhythm, S1 normal heart sound present and S2 normal heart sound present RATE: regular rate RHYTHM: regular rhythm HEART SOUNDS: S1 normal heart sound present and S2 normal heart sound present GI: COMMON NORMALS: Normal to inspection, nondistended, normoactive bowel sounds present and non-tender Extremity: COMMON NORMALS: no pedal edema Neuro: COMMON NORMALS: CN's II-XII intact bilaterally, moves all extremities and no focal motor deficits Data 12/26/24 02:50 12/26/24 02:50 Micro: Microbiology 12/25/24 17:52 Blood Culture - Preliminary Blood SPECIMEN COLLECTED 12/25/24 17:52 Blood Culture - Preliminary Blood SPECIMEN COLLECTED A&P Assessment and plan (1) Type 2 diabetes mellitus: Qualifiers: Diabetes mellitus complication status: without complication 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 insulin use: without local company intermodal truck driver use Qualified Code(s): E11.9 - Type 2 diabetes mellitus without complications (2) Urinary tract infection: (3) BPH (benign prostatic hyperplasia): Qualifiers: Lower urinary tract symptom presence: symptoms absent Qualified Code(s): N40.0 - Benign prostatic hyperplasia without lower urinary tract symptoms (4) Sepsis: (5) Acute metabolic encephalopathy: (6) Cognitive decline: (7) Weakness: (8) Multiple falls: (9) Acute respiratory failure: (10) CHF exacerbation: Plan Metabolic encephalopathy secondary to UTI -Resolving -Continue Rocephin -Previous urine culture showed E. coli -Patient does complain of back pain, flank pain CT abdomen pelvis Acute hypoxic respiratory failure -Multifactorial -Concerns for CHF exacerbation -Concern for possible pneumonia ? Plan ? Continue Rocephin ? Continue Zithromycin ? CT of the chest -1 dose IV Lasix, check BMP, cardiac echo ? Stop IV fluids Sepsis Septic bolus administered Criteria met with tachypnea tachycardia leukocytosis, no significant high lactic acid Generalized weakness -Likely multifactorial UTI, concerns for pneumonia -CT head no acute findings Acute metabolic encephalopathy Monitor closely Vitamin B12 deficiency start B12 replacement Request physical therapy GERD: Continue Protonix Hypertension: Continue lisinopril and metoprolol Type 2 diabetes mellitus, low-dose insulin sliding scale BPH continue tamsulosin DVT prophylaxis Lovenox PDMP PDMP Reviewed: Not Reviewed Attestations Medical Necessity Statement*: Patient requires hospitalization for acute encephalopathy, UTI, pneumonia, respiratory failure Diagnoses Type 2 diabetes mellitus without complication, without long-term current use of insulin E11.9 Diabetes mellitus complication status: without complication Diabetes mellitus senior living insulin use: without senior living use Urinary tract infection N39.0 Benign prostatic hyperplasia without lower urinary tract symptoms N40.0 Lower urinary tract symptom presence: symptoms absent Sepsis A41.9 Acute metabolic encephalopathy G93.41 Cognitive decline R41.89 Weakness R53.1 Multiple falls R29.6 Acute respiratory failure J96.00 CHF exacerbation I50.9
--- NOTE | 2024-12-26 14:29 | PC.NURSE ---
Unable to place cardoso catheter. Attempted different sizes and types. Device will not advance due to patient's anatomy. Informed Dr Guthrie. Cardoso order discontinued.
[2024-12-26 15:20] LABS: Troponin 5 2HR 40.54 ng/L (0-15); Troponin 5 2HR Delta 0.54 ABS# (0-10)
[2024-12-26 17:10] LABS: Glucose Point of Care 97 mg/dL (70-110)
--- NOTE | 2024-12-26 17:33 | ECG_ITS ---
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: : 1940 Requested By: Kan Guthrie Order Number: [id number] Reading MD: KASSY BELTRAN Measurements Intervals [place] Rate: 87 P: 50 PA: 146 QRS: 48 QRSD: 127 T: -21 QT: 359 QTc: 434 Interpretive Statements SINUS RHYTHM WITH OCCASIONAL SUPRAVENTRICULAR PREMATURE COMPLEXES ANTEROSEPTAL MYOCARDIAL INFARCTION , OF INDETERMINATE AGE [40+ ms Q WAVE IN V1-V4] Compared to ECG 12/26/2024 13:07:03 Myocardial infarct finding now present Left bundle-branch block no longer present Electronically Signed On 01-02-2025 23:55:52 [employer]SHMALLOW MACHINE WORKER by KASSY BELTRAN [email or web address]
[2024-12-26 18:23] LABS: Troponin 5 6HR 36.23 ng/L (0-15)
[2024-12-26 18:27] LABS: Troponin 5 6HR Delta -3.77 ng/L (0-12)
[2024-12-26 20:50] LABS: Glucose Point of Care 128 mg/dL (70-110)
[2024-12-26] MEDS: enoxaparin 40 mg/0.4 mL Syringe SUBCUT (21:02)
[2024-12-27] VITALS: BP 133/74; PULSE 64; RESP 18; TEMP 36.8
[2024-12-27 03:45] LABS: Basophils % 0.1 %; Eosinophils % 0.2 %; Hematocrit 34.2 % (37-53); Lymphocytes # 1.2 10^3/uL (0.8-4.8); Lymphocytes % 9.9 %; Mean Corpuscular HGB Conc 33.3 g/dL (30-55); Mean Corpuscular Hemoglobin 30.6 pg (27-33); Mean Corpuscular Volume 91.7 fl (82-101); Monocytes # 0.8 10^3/uL (0.2-0.9); Monocytes % 7.1 %; Neutrophils # 9.59 10^3/uL (1.8-7.7); Neutrophils % 82.3 %; Nucleated Red Blood Cells % 0 %; Platelet Count 141 10^3/cmm (157-399); Red Blood Count 3.73 10^6/uL (3.85-5.65); White Blood Count 11.65 10^3/uL (3.29-11.43)
[2024-12-27 04:00] VITALS: BP 112/54; RESP 18; TEMP 36.6
[2024-12-27 04:13] LABS: Alanine Aminotransferase 10 U/L (0-41); Alkaline Phosphatase 61 U/L (40-130); Anion Gap 18.4 (5-19); Aspartate Amino Transferase 13 U/L (0-40); Blood Urea Nitrogen 10 mg/dL (8-23); Calcium 8.3 mg/dL (8.5-10.5); Carbon Dioxide 22 mmol/L (22-29); Chloride 101 mmol/L (98-107); Creatinine Clr Calc Pharmacy 66.0042; Globulin 2.6 g/dL (1.3-4.6); Glucose 123 mg/dL (65-115); Osmolality Calculated 286 mOsm/kg (285-295); Potassium 3.4 mmol/L (3.5-5.1); Sodium 138 mmol/L (136-145); Total Bilirubin 0.2 mg/dL (0.15-1.2); Total Protein 5.6 g/dL (6.6-8.7)
[2024-12-27 04:21] LABS: NT Pro B Type Natriuretic Pept 2155 pg/mL (0-450)
--- NOTE | 2024-12-27 06:00 | CTR_ITS ---
PROCEDURE INFORMATION: Exam: CT Chest Without Contrast; Diagnostic Exam date and time: 12/27/2024 5:49 AM Age: 84 years old Clinical indication: Abdominal tenderness and bloating; Cough; Additional info: SOB, cough, low back pain TECHNIQUE: Imaging protocol: Diagnostic computed tomography of the chest without contrast. Radiation optimization: All CT scans at this facility use at least one of these dose optimization techniques: automated exposure control; mA and/or kV adjustment per patient size (includes targeted exams where dose is matched to clinical indication); or iterative reconstruction. COMPARISON: CR XR chest 1V portable [id number] 12/26/2024 12:35 PM RADIATION DOSE METRICS: Total DLP (mGy-cm): 803.38 FINDINGS: Lungs: Mild fibrosis or atelectasis at the left lung base. Calcified granuloma in the left upper lobe. Pleural spaces: 14 mm spiculated nodule in the right upper lobe (3:23) with minimal adjacent pleural thickening. Morphology is suspicious and a PET scan is recommended. Heart: Unremarkable. No cardiomegaly. No pericardial effusion. Coronary arteries: Coronary artery calcifications. Lymph nodes: Unremarkable. No enlarged lymph nodes. Vasculature: Unremarkable. No aortic aneurysm. Bones/joints: Unremarkable. No acute fracture. Soft tissues: Unremarkable. PROCEDURE INFORMATION: Exam: CT Abdomen And Pelvis Without Contrast Exam date and time: 12/27/2024 5:49 AM Age: 84 years old Clinical indication: Abdominal tenderness and bloating; Cough; Additional info: SOB, cough, low back pain TECHNIQUE: Imaging protocol: Computed tomography of the abdomen and pelvis without contrast. Radiation optimization: All CT scans at this facility use at least one of these dose optimization techniques: automated exposure control; mA and/or kV adjustment per patient size (includes targeted exams where dose is matched to clinical indication); or iterative reconstruction. COMPARISON: CR XR chest 1V portable [id number] 12/26/2024 12:35 PM RADIATION DOSE METRICS: Total DLP (mGy-cm): 803.38 FINDINGS: Liver: Normal. No mass. Gallbladder and biliary ducts: Normal. No calcified stones. No ductal dilation. Pancreas: Normal. No ductal dilation. Spleen: Normal. No splenomegaly. 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 Kidneys and ureters: Right renal cysts. Punctate nonobstructing left renal calculus. Stomach and bowel: Diverticulosis without evidence of diverticulitis. Appendix: No evidence of appendicitis. Intraperitoneal space: Unremarkable. No free air. No significant fluid collection. Vasculature: Unremarkable. No abdominal aortic aneurysm. Lymph nodes: Unremarkable. No enlarged lymph nodes. Urinary bladder: Unremarkable as visualized. Reproductive: Prominent prostate containing calcifications. Bones/joints: Unremarkable. No acute fracture. Soft tissues: Small bilateral inguinal hernias containing only fat. Small umbilical hernia containing only fat. CT/[place] [id number] IMPRESSION: Spiculated nodule in the right upper lobe. PET scan recommended. IMPRESSION: No acute subdiaphragmatic pathology. COMMENTS: 1. Consistent with the [employer]'s Incidental Findings Committee white paper (J Am Aung Radiol 2017): For any incidental adrenal lesion greater than or equal to 1 cm but less than or equal to 4 cm classified in this report as benign, likely benign, or containing fat (including classification as an adenoma or myelolipoma), no follow-up imaging is recommended per consensus recommendations based on imaging criteria. Further lab evaluation could be pursued if warranted based on clinical findings. 2. Consistent with the [employer]'s Incidental Findings Committee white paper (J Am Aung Radiol 2018): Any incidental renal lesion less than 1 cm or classified as too small to characterize, or any incidental cystic renal lesion characterized as simple-appearing, is likely benign. No follow-up imaging is recommended for these lesions per consensus recommendations based on imaging criteria.
[2024-12-27 06:41] LABS: Glucose Point of Care 101 mg/dL (70-110)
--- NOTE | 2024-12-27 06:55 | PC.SOCIAL ---
IMM Update Pg. 2 of IMM updated, and copy provided at bedside.
[2024-12-27 07:33] VITALS: BP 139/67; PULSE 86; RESP 22; TEMP 36.5; O2SAT 94
[2024-12-27] MEDS: sennosides-docusate Tablet 1 TAB PO (08:49)
[2024-12-27] MEDS: lisinopril 10 mg Tablet PO (08:49)
[2024-12-27] MEDS: tamsulosin 0.4 mg Capsule PO (08:49)
[2024-12-27] MEDS: cyanocobalamin 1,000 mcg Tablet 1000 MCG PO (08:49)
[2024-12-27] MEDS: metoprolol tartrate 25 mg Tablet PO ×2 (08:49→20:36)
[2024-12-27] MEDS: finasteride 5 mg Tablet PO (08:49)
[2024-12-27] MEDS: FUROsemide 10 mg/mL SDV 2mL 20 MG IVP (08:59)
[2024-12-27] MEDS: potassium chloride ER 20 mEq Tablet PO (08:59)
[2024-12-27 11:24] VITALS: BP 142/86; PULSE 95; RESP 19; TEMP 36.6; O2SAT 97
[2024-12-27 11:26] LABS: Glucose Point of Care 127 mg/dL (70-110)
[2024-12-27] MEDS: AZITHROMYCIN ADD-Vantage 500 MG in 0.9% NaCl ADD-Vantage 250 ML 250 MG IV (12:18)
[2024-12-27] MEDS: acetaminophen 500 mg Tablet PO ×2 (12:48→19:50)
[2024-12-27 15:22] VITALS: BP 121/68; PULSE 95; RESP 17; O2SAT 95
--- NOTE | 2024-12-27 15:29 | P.PN_ITS ---
Subjective 2 Subjective: Patient was seen this morning, he is alert oriented x 3, following all commands, he was able to ambulate to the bathroom, he tells me he lives at home by himself his son leaves close by, his weakness in his legs is improving but does report persistent generalized fatigue his shortness of breath is also improving, denies chest pain, palpitations, we discussed his goals of care, he tells me he wants to go home, he does not want to go to rehab, I discussed his family's concerns for him going home however he tells me he can take care of himself, he understands that he is here in the hospital for UTI, concerns for pneumonia, fluid overload, discussed his deconditioning however he is adamant about going home Vitals/I&O/Wt Last Vital Signs Temp 97.9 F 12/27/24 11:24 Pulse 95 12/27/24 15:22 Resp 17 12/27/24 15:22 BP 121/68 12/27/24 15:22 Pulse Ox 95 12/27/24 15:22 O2 Del Method Room Air 12/27/24 15:22 12/27/24 12/27/24 12/27/24 06:59 14:59 22:59 Intake Total 480 / 480 Output Total 200 / 1200 700 / 700 Balance -200 / 340 -220 / -220 Weight last 48 hrs Weight 76.929 kg Weight 77.111 kg Weight 76.702 kg Weight 72.575 kg Physical Exam 2 Const: COMMON NORMALS: no acute distress ORIENTATION/CONSCIOUSNESS: Yes awake, Yes oriented to person and Yes oriented to place; not oriented to time Resp: COMMON NORMALS: normal respiratory effort, No retractions and No use of accessory muscles AUSCULTATION: crackles and wheezes Cardio: COMMON NORMALS: regular rate, regular rhythm, S1 normal heart sound present and S2 normal heart sound present RATE: regular rate RHYTHM: r egular rhythm HEART SOUNDS: S1 normal heart sound present and S2 normal heart sound present GI: COMMON NORMALS: Normal to inspection, nondistended, normoactive bowel sounds present and non-tender Extremity: COMMON NORMALS: no pedal edema Neuro: SENSORIUM/ORIENTATION: Yes oriented to person, Yes oriented to place and No oriented to time Data 12/27/24 03:29 12/27/24 03:29 Micro: Microbiology 12/25/24 19:40 Urine Culture - Preliminary Urine,Clean Catch 12/25/24 17:52 Blood Culture - Preliminary Blood NEGATIVE TO DATE 12/25/24 17:52 Blood Culture - Preliminary Blood NEGATIVE TO DATE A&P Assessment and plan (1) Type 2 diabetes mellitus: Qualifiers: 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: without [facility] use Diabetes mellitus complication status: without complication Qualified Code(s): E11.9 - Type 2 diabetes mellitus without complications (2) Urinary tract infection: (3) BPH (benign prostatic hyperplasia): Qualifiers: Lower urinary tract symptom presence: symptoms absent Qualified Code(s): N40.0 - Benign prostatic hyperplasia without lower urinary tract symptoms (4) Sepsis: (5) Acute metabolic encephalopathy: (6) Cognitive decline: (7) Weakness: (8) Multiple falls: (9) Acute respiratory failure: (10) CHF exacerbation: Plan Metabolic encephalopathy secondary to UTI -Resolving, currently alert oriented x 3, following all commands -Continue Rocephin -Previous urine culture showed E. coli -Patient does complain of back pain, flank pain CT abdomen pelvis, did show punctuate nonobstructing left renal colliculi Acute hypoxic respiratory failure -Multifactorial -Concerns for CHF exacerbation -Concern for possible pneumonia ? Plan ? Continue Rocephin ? Continue Zithromycin ? CT of the chest spiculated nodule in the right upper lobe that will have to be followed up with pulmonary as outpatient -1 dose IV Lasix, Sepsis resolved Septic bolus administered Criteria met with tachypnea tachycardia leukocytosis, no significant high lactic acid Generalized weakness -Likely multifactorial UTI, concerns for pneumonia -CT head no acute findings Acute metabolic encephalopathy resolved Monitor closely Vitamin B12 deficiency start B12 replacement Request physical therapy GERD: Continue Protonix Hypertension: Continue lisinopril and metoprolol Type 2 diabetes mellitus, low-dose insulin sliding scale BPH continue tamsulosin DVT prophylaxis Lovenox PDMP PDMP Reviewed: Not Reviewed Attestations 2 Medical Necessity Statement*: Patient requires hospitalization for UTI, pneumonia, respiratory failure Diagnoses Type 2 diabetes mellitus without complication, without long-term current use of insulin E11.9 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
[2024-12-27 16:08] LABS: Glucose Point of Care 151 mg/dL (70-110)
[2024-12-27] MEDS: insulin lispro 100 unit/1 mL SUBCUT ×2 (18:04→20:36)
[2024-12-27 19:59] VITALS: BP 117/62; PULSE 103; RESP 12; TEMP 36.8; O2SAT 95
[2024-12-27 20:20] LABS: Glucose Point of Care 203 mg/dL (70-110)
[2024-12-27] MEDS: enoxaparin 40 mg/0.4 mL Syringe SUBCUT (20:37)
[2024-12-27] MEDS: cefTRIAXone 2,000 mg SDV 2000 MG IVP (23:54)
[2024-12-28] VITALS: BP 139/69; PULSE 81; RESP 16; TEMP 36.4; O2SAT 96
[2024-12-28] MEDS: acetaminophen 500 mg Tablet PO ×3 (03:21→13:42)
[2024-12-28 04:00] VITALS: BP 112/58; PULSE 92; RESP 20; TEMP 36.9; O2SAT 92
[2024-12-28 04:23] LABS: Basophils % 0.3 %; Eosinophils # 0.1 10^3/uL (0.0-0.8); Eosinophils % 1.5 %; Hematocrit 35.7 % (37-53); Lymphocytes # 1.3 10^3/uL (0.8-4.8); Lymphocytes % 17.9 %; Mean Corpuscular HGB Conc 33.1 g/dL (30-55); Mean Corpuscular Hemoglobin 30.3 pg (27-33); Mean Corpuscular Volume 91.5 fl (82-101); Mean Platelet Volume 10.3 fL (7.4-10.4); Monocytes # 0.7 10^3/uL (0.2-0.9); Monocytes % 9.8 %; Neutrophils # 5.11 10^3/uL (1.8-7.7); Nucleated Red Blood Cells % 0 %; Platelet Count 164 10^3/cmm (157-399); White Blood Count 7.31 10^3/uL (3.29-11.43)
[2024-12-28 04:53] LABS: Alanine Aminotransferase 18 U/L (0-41); Albumin Level 3.1 g/dL (3.5-5.2); Alkaline Phosphatase 64 U/L (40-130); Anion Gap 17.8 (5-19); Aspartate Amino Transferase 19 U/L (0-40); Blood Urea Nitrogen 14 mg/dL (8-23); Calcium 8.5 mg/dL (8.5-10.5); Carbon Dioxide 24 mmol/L (22-29); Chloride 102 mmol/L (98-107); Creatinine Clr Calc Pharmacy 65.9347; Globulin 2.2 g/dL (1.3-4.6); Glucose 114 mg/dL (65-115); Osmolality Calculated 291 mOsm/kg (285-295); Potassium 3.8 mmol/L (3.5-5.1); Sodium 140 mmol/L (136-145); Total Bilirubin 0.2 mg/dL (0.15-1.2); Total Protein 5.3 g/dL (6.6-8.7)
[2024-12-28 04:57] LABS: NT Pro B Type Natriuretic Pept 1354 pg/mL (0-450)
[2024-12-28 06:37] LABS: Glucose Point of Care 120 mg/dL (70-110)
[2024-12-28 07:29] VITALS: BP 133/61; PULSE 97; RESP 26; TEMP 36.6; O2SAT 94
[2024-12-28] MEDS: lisinopril 10 mg Tablet PO (09:33)
[2024-12-28] MEDS: finasteride 5 mg Tablet PO (09:33)
[2024-12-28] MEDS: sennosides-docusate Tablet 1 TAB PO (09:33)
[2024-12-28] MEDS: cyanocobalamin 1,000 mcg Tablet 1000 MCG PO (09:33)
[2024-12-28] MEDS: tamsulosin 0.4 mg Capsule PO (09:33)
[2024-12-28] MEDS: metoprolol tartrate 25 mg Tablet PO ×2 (09:33→20:45)
[2024-12-28 11:38] VITALS: BP 141/67; PULSE 74; RESP 25; TEMP 36.7; O2SAT 98
[2024-12-28 11:58] LABS: Glucose Point of Care 144 mg/dL (70-110)
[2024-12-28] MEDS: insulin lispro 100 unit/1 mL SUBCUT ×2 (12:38→20:45)
[2024-12-28] MEDS: AZITHROMYCIN ADD-Vantage 500 MG in 0.9% NaCl ADD-Vantage 250 ML 250 MG IV (12:39)
--- NOTE | 2024-12-28 14:46 | P.PN_ITS ---
Subjective 2 Subjective: Patient was seen this morning, he is alert oriented x 3, following all commands, does report weakness of his legs which is overall improving but continues to have some degree of weakness he tells me his shortness of breath also is improving, no chest pain, we discussed his family's concerns about going home, he tells me that his son worries about him, his son lives near [place], Vitals/I&O/Wt Last Vital Signs Temp 98.0 F 12/28/24 11:38 Pulse 74 12/28/24 11:38 Resp 25 H 12/28/24 11:38 BP 141/67 12/28/24 11:38 Pulse Ox 98 12/28/24 11:38 O2 Del Method Room Air 12/28/24 11:38 12/27/24 12/28/24 12/28/24 22:59 06:59 14:59 Intake Total 472 / 952 0 / 952 720 / 720 Output Total 100 / 800 200 / 1000 Balance 372 / 152 -200 / -48 720 / 720 Weight last 48 hrs Weight 76.521 kg Weight 76.929 kg Physical Exam 2 Const: COMMON NORMALS: no acute distress and patient oriented x3 Resp: COMMON NORMALS: normal respiratory effort, No retractions, No use of accessory muscles and clear to auscultation bilaterally AUSCULTATION: clear to auscultation bilaterally Cardio: COMMON NORMALS: regular rate, regular rhythm, S1 normal heart sound present and S2 normal heart sound present RATE: regular rate RHYTHM: r egular rhythm HEART SOUNDS: S1 normal heart sound present and S2 normal heart sound present GI: COMMON NORMALS: Normal to inspection, nondistended, normoactive bowel sounds present and non-tender Extremity: COMMON NORMALS: no pedal edema Neuro: COMMON NORMALS: patient oriented x3 Psych: COMMON NORMALS: mental status grossly normal Data 12/28/24 03:36 12/28/24 03:36 Micro: Microbiology 12/25/24 19:40 Urine Culture - Final Urine,Clean Catch A&P Assessment and plan (1) Type 2 diabetes mellitus: Qualifiers: 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 use: without terminal make 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 Diabetes mellitus complication status: without complication Qualified Code(s): E11.9 - Type 2 diabetes mellitus without complications (2) Urinary tract infection: (3) BPH (benign prostatic hyperplasia): Qualifiers: Lower urinary tract symptom presence: symptoms absent Qualified Code(s): N40.0 - Benign prostatic hyperplasia without lower urinary tract symptoms (4) Sepsis: (5) Acute metabolic encephalopathy: (6) Cognitive decline: (7) Weakness: (8) Multiple falls: (9) Acute respiratory failure: (10) CHF exacerbation: Plan Metabolic encephalopathy secondary to UTI -Resolving, currently alert oriented x 3, following all commands -Continue Rocephin -Previous urine culture showed E. coli -Patient does complain of back pain, flank pain CT abdomen pelvis, did show punctuate nonobstructing left renal colliculi Acute hypoxic respiratory failure -Multifactorial -Concerns for CHF exacerbation -Concern for possible pneumonia ? Plan ? Continue Rocephin ? Continue Zithromycin ? CT of the chest spiculated nodule in the right upper lobe that will have to be followed up with pulmonary as outpatient - appears euvolemic hold off on further Lasix dosing Sepsis resolved Septic bolus administered Criteria met with tachypnea tachycardia leukocytosis, no significant high lactic acid Generalized weakness -Likely multifactorial UTI, concerns for pneumonia -CT head no acute findings Acute metabolic encephalopathy resolved Monitor closely Vitamin B12 deficiency, on B12 replacement Request physical therapy GERD: Continue Protonix Hypertension: Continue lisinopril and metoprolol Type 2 diabetes mellitus, low-dose insulin sliding scale BPH continue tamsulosin DVT prophylaxis Lovenox PDMP PDMP Reviewed: Not Reviewed Attestations 2 Medical Necessity Statement*: Patient requires hospitalization for UTI, pneumonia, respiratory failure Diagnoses Type 2 diabetes mellitus without complication, without long-term current use of insulin E11.9 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
[2024-12-28 16:00] VITALS: BP 125/70; PULSE 84; RESP 25; TEMP 36.6; O2SAT 94
[2024-12-28 16:27] LABS: Glucose Point of Care 89 mg/dL (70-110)
[2024-12-28 20:00] VITALS: BP 145/76; PULSE 95; RESP 28; TEMP 37; O2SAT 95
[2024-12-28] MEDS: enoxaparin 40 mg/0.4 mL Syringe SUBCUT (20:45)
[2024-12-28 20:48] LABS: Glucose Point of Care 157 mg/dL (70-110)
[2024-12-29] VITALS: BP 153/77; PULSE 86; RESP 18; TEMP 36.5; O2SAT 95
[2024-12-29] MEDS: cefTRIAXone 2,000 mg SDV 2000 MG IVP (00:24)
[2024-12-29] MEDS: acetaminophen 500 mg Tablet PO ×2 (00:44→11:51)
[2024-12-29] MEDS: zolpidem 5 mg Tablet PO (01:06)
--- NOTE | 2024-12-29 01:08 | PC.NURSE ---
patient stated he would like to have something to help him sleep . Dr Joiner notified and order for ambien 5mg placed.
[2024-12-29 04:00] VITALS: BP 157/86; PULSE 93; RESP 16; O2SAT 96
[2024-12-29 06:42] LABS: Glucose Point of Care 114 mg/dL (70-110)
[2024-12-29] MEDS: ondansetron 2 mg/ML SDV 2 mL 4 MG IVP (06:56)
[2024-12-29 07:20] LABS: Basophils % 0.3 %; Eosinophils # 0.1 10^3/uL (0.0-0.8); Eosinophils % 2.1 %; Lymphocytes # 1.2 10^3/uL (0.8-4.8); Lymphocytes % 17.5 %; Mean Corpuscular HGB Conc 33.5 g/dL (30-55); Mean Corpuscular Hemoglobin 30.1 pg (27-33); Mean Corpuscular Volume 89.8 fl (82-101); Mean Platelet Volume 9.5 fL (7.4-10.4); Monocytes # 0.7 10^3/uL (0.2-0.9); Neutrophils # 4.57 10^3/uL (1.8-7.7); Neutrophils % 68.8 %; Nucleated Red Blood Cells % 0 %; Platelet Count 190 10^3/cmm (157-399); Red Blood Count 4.12 10^6/uL (3.85-5.65); Red Cell Distribution Width 12.7 % (12.1-15.1); White Blood Count 6.64 10^3/uL (3.29-11.43)
[2024-12-29 07:37] LABS: Alanine Aminotransferase 20 U/L (0-41); Alkaline Phosphatase 63 U/L (40-130); Anion Gap 16.7 (5-19); Aspartate Amino Transferase 18 U/L (0-40); Blood Urea Nitrogen 11 mg/dL (8-23); Calcium 8.9 mg/dL (8.5-10.5); Carbon Dioxide 23 mmol/L (22-29); Chloride 100 mmol/L (98-107); Creatinine Clr Calc Pharmacy 66.6451; Glucose 119 mg/dL (65-115); Osmolality Calculated 283 mOsm/kg (285-295); Potassium 3.7 mmol/L (3.5-5.1); Sodium 136 mmol/L (136-145); Total Bilirubin 0.2 mg/dL (0.15-1.2)
[2024-12-29 07:45] LABS: NT Pro B Type Natriuretic Pept 1496 pg/mL (0-450)
[2024-12-29 08:00] VITALS: BP 121/70; PULSE 96; RESP 22; TEMP 36.7; O2SAT 94
[2024-12-29] MEDS: sennosides-docusate Tablet 1 TAB PO (09:36)
[2024-12-29] MEDS: finasteride 5 mg Tablet PO (09:36)
[2024-12-29] MEDS: cyanocobalamin 1,000 mcg Tablet 1000 MCG PO (09:36)
[2024-12-29] MEDS: lisinopril 10 mg Tablet PO (09:36)
[2024-12-29] MEDS: tamsulosin 0.4 mg Capsule PO (09:36)
[2024-12-29] MEDS: FUROsemide 40 mg Tablet PO (09:37)
[2024-12-29] MEDS: metoprolol tartrate 25 mg Tablet PO (09:37)
--- NOTE | 2024-12-29 11:09 | P.DS_ITS ---
Discharge Providers Date of Admission: 12/25/24 20:37 Date of Discharge: December 29, 2024 Attending Provider at Admission: Linda Joiner MD Attending Provider at Discharge: Kan Guthrie MD Primary Care Provider: KELLY Ann Diagnoses at Discharge Discharge Diagnosis (1) Type 2 diabetes mellitus: Status: Chronic Qualifiers: Diabetes mellitus complication status: without complication Diabetes mellitus resident physician in radiology insulin use: without resident physician in radiology use Qualified Code(s): E11.9 - Type 2 diabetes mellitus without complications (2) Urinary tract infection: Status: Acute (3) BPH (benign prostatic hyperplasia): Status: Chronic Qualifiers: Lower urinary tract symptom presence: symptoms absent Qualified Code(s): N40.0 - Benign prostatic hyperplasia without lower urinary tract symptoms (4) Sepsis: Status: Acute (5) Acute metabolic encephalopathy: Status: Acute (6) Cognitive decline: Status: Acute (7) Weakness: Status: Acute (8) Multiple falls: Status: Acute (9) Acute respiratory failure: Status: Acute (10) CHF exacerbation: Status: Acute Reason for Visit Reason for Visit: weakness, Uti x 1 day Hospital Course Hospital Course This is a 84-year-old male who presents [facility] due to altered mental status, Patient presented to [facility] for metabolic encephalopathy secondary to UTI, pneumonia, received broad-spectrum antibiotic therapy, overall clinically improved, will be discharged on p.o. antibiotics Patient was found to have a punctuate nonobstructing left renal colliculi, continue to monitor, if he does have flank pain to come back to the emergency room Patient also had acute diastolic CHF exacerbation during his hospitalization requiring IV diuresis, overall clinically improved will be discharged with Lasix and potassium as needed as outpatient He also had sepsis during his hospitalization which resolved He send B12 deficiency, discharged on B12 For deconditioning, [facility] Patient was also found to have a spiculated nodule in the right upper lobe, he tells me that he cannot get to [place], will have him follow-up with oncology, here in [place] for consideration of PET scan - Please monitor for shortness of breath -Please follow-up with hematology oncology for your pulmonary nodule, as you need a PET scan ? Take antibiotics as prescribed ? Take Lasix as needed for shortness of breath, wheezing, weight gain -Please monitor your blood sugars closely -Monitor your blood sugars 3 times daily as after meals -Please record your blood sugars, and a blood sugar log -For your NovoLog -Please inject blood sugar after meals based on sliding scale provided -Do not inject insulin if you do not eat as hypoglycemia kills -This is a NovoLog sliding scale -Insulin sliding ?fingerstick? Insulin ?141-180?0 units/sq 181-220?2 units/sq ?221-260?4 units/sq ?261-300 6 units/sq ?301-350?8 units/sq ?351-400 10 units/sq ?401-450?12 units/sq >450? 14units/sq -If your blood sugar is greater than 500 go to the emergency room -If your blood sugar is less than 60 or at anytime you feel lightheaded or dizzy or diaphoretic or have chest palpitations check your blood sugar, and eat a hard candy or drink orange juice and go immediately to the emergency room -Remember hypoglycemia kills, so if his blood sugar is less than 60 we have to increase it by taking in a sugary meal such as a hard candy or orange juice and go to the emergency room -If you have any questions please call us where here to help Physical Exam Const: COMMON NORMALS: no acute distress and patient oriented x3 Resp: COMMON NORMALS: normal respiratory effort, No retractions, No use of accessory muscles and clear to auscultation bilaterally AUSCULTATION: clear to auscultation bilaterally Cardio: COMMON NORMALS: regular rate, regular rhythm, S1 normal heart sound present and S2 normal heart sound present RATE: regular rate RHYTHM: regular rhythm HEART SOUNDS: S1 normal heart sound present and S2 normal heart sound present GI: COMMON NORMALS: Normal to inspection, nondistended, normoactive bowel sounds present and non-tender Extremity: COMMON NORMALS: no pedal edema Neuro: COMMON NORMALS: patient oriented x3 Psych: COMMON NORMALS: mental status grossly normal Discharge Data Studies Completed and Pending Completed Studies During Hospitalization Category [place] [id number] Routine Cat Scan 12/27/24 06:[address] head wo con* [id number] Stat Cat Scan 12/25/24 17:44 Completed XR chest 1V portable [id number] Routine Exams 12/26/24 12:14 Completed XR chest 1V portable [id number] Stat Exams 12/25/24 17:27 Completed CV. echo complete* [id number] Routine Ultrasound 12/26/24 12:12 Completed Pending at discharge Category Date Time Status Blood Culture Stat Lab 12/25/24 17:52 Results SARS Covid-2 Antigen Routine Lab 12/29/24 08:37 Uncollected Radiology Impressions Head CT 12/25/24 17:44 IMPRESSION: No acute intracranial findings. Chest X-Ray 12/26/24 12:14 IMPRESSION: No acute findings. Chest/Abdomen/Pelvis CT 12/27/24 06:00 IMPRESSION: Spiculated nodule in the right upper lobe. PET scan recommended. IMPRESSION: No acute subdiaphragmatic pathology. COMMENTS: 1. Consistent with the [employer]'s Incidental Findings Committee white paper (J Am Aung Radiol 2017): For any incidental adrenal lesion greater than or equal to 1 cm but less than or equal to 4 cm classified in this report as benign, likely benign, or containing fat (including classification as an adenoma or myelolipoma), no follow-up imaging is recommended per consensus recommendations based on imaging criteria. Further lab evaluation could be pursued if warranted based on clinical findings. 2. Consistent with the [employer]'s Incidental Findings Committee white paper (J Am Aung Radiol 2018): Any incidental renal lesion less than 1 cm or classified as too small to characterize, or any incidental cystic renal lesion characterized as simple-appearing, is likely benign. No follow-up imaging is recommended for these lesions per consensus recommendations based on imaging criteria. Laboratory Results WBC 6.64 10^3/uL (3.29-11.43) 12/29/24 07:02 RBC 4.12 10^6/uL (3.85-5.65) 12/29/24 07:02 Hgb 12.40 g/dL (11.27-16.99) 12/29/24 07:02 Hct 37.0 % (37-53) 12/29/24 07:02 MCV 89.8 fl (82-101) 12/29/24 07:02 MCH 30.1 pg (27-33) 12/29/24 07:02 MCHC 33.5 g/dL (30-55) 12/29/24 07:02 RDW 12.7 % (12.1-15.1) 12/29/24 07:02 Plt Count 190 10^3/cmm (157-399) 12/29/24 07:02 MPV 9.5 fL (7.4-10.4) 12/29/24 07:02 Neut % (Auto) 68.8 % 12/29/24 07:02 Lymph % (Auto) 17.5 % 12/29/24 07:02 Power % (Auto) 11.0 % 12/29/24 07:02 Eos % (Auto) 2.1 % 12/29/24 07:02 Baso % (Auto) 0.3 % 12/29/24 07:02 Neut # (Auto) 4.57 10^3/uL (1.8-7.7) 12/29/24 07:02 Lymph # (Auto) 1.2 10^3/uL (0.8-4.8) 12/29/24 07:02 Power # (Auto) 0.7 10^3/uL (0.2-0.9) 12/29/24 07:02 Eos # (Auto) 0.1 10^3/uL (0.0-0.8) 12/29/24 07:02 Baso # (Auto) 0.0 10^3/uL (0.0-0.1) 12/29/24 07:02 Nucleated RBC % (auto) 0 % 12/29/24 07:02 Nucleated RBCs # 0.0 /100WBC 12/29/24 07:02 Sodium 136 mmol/L (136-145) 12/29/24 07:02 Potassium 3.7 mmol/L (3.5-5.1) 12/29/24 07:02 Chloride 100 mmol/L (98-107) 12/29/24 07:02 Carbon Dioxide 23 mmol/L (22-29) 12/29/24 07:02 Anion Gap 16.7 (5-19) 12/29/24 07:02 BUN 11 mg/dL (8-23) 12/29/24 07:02 Creatinine 0.6 mg/dL (0.7-1.2) L 12/29/24 07:02 GFR Calculation Not Reportable 12/29/24 07:02 Glucose 119 mg/dL (65-115) H 12/29/24 07:02 POC Glucose 114 mg/dL (70-110) H 12/29/24 06:36 Calculated Osmolality 283 mOsm/kg (285-295) L 12/29/24 07:02 Lactic Acid 1.3 mmol/L (0.5-2.2) 12/25/24 17:52 Calcium 8.9 mg/dL (8.5-10.5) 12/29/24 07:02 Magnesium 1.7 mg/dL (1.7-2.3) 12/26/24 02:50 Total Bilirubin 0.2 mg/dL (0.15-1.2) 12/29/24 07:02 AST 18 U/L (0-40) 12/29/24 07:02 ALT 20 U/L (0-41) 12/29/24 07:02 Alkaline Phosphatase 63 U/L (40-130) 12/29/24 07:02 Creatine Kinase 107 U/L (39-308) 12/25/24 17:52 Troponin T Baseline 40 ng/L (0-15) H 12/26/24 11:51 Troponin T 120 Minute 40.54 ng/L (0-15) H 12/26/24 14:46 Delta Troponin T 0.54 ABS# (0-10) 12/26/24 14:46 Troponin T Hi Sens 6Hr 36.23 ng/L (0-15) H 12/26/24 17:59 Troponin T Hi Sens 6Hr Delta -3.77 ng/L (0-12) L 12/26/24 17:59 C-Reactive Protein 209.0 mg/L (0.0-4.9) H 12/26/24 02:50 NT-Pro-B Natriuret Pep 1496 pg/mL (0-450) H 12/29/24 07:02 Total Protein 6.0 g/dL (6.6-8.7) L 12/29/24 07:02 Albumin 3.0 g/dL (3.5-5.2) L 12/29/24 07:02 Globulin 3.0 g/dL (1.3-4.6) 12/29/24 07:02 Vitamin B12 219 pg/mL (232-1245) L 12/25/24 17:52 Procalcitonin 0.15 ng/mL (0-0.5) 12/25/24 17:52 Procalcitonin 0.17 ng/mL (0-0.5) 12/25/24 17:52 TSH 1.29 uIU/mL (0.27-4.20) 12/25/24 17:52 Urine Color Yellow (Yellow) 12/25/24 19:40 Urine Appearance Clear (CLEAR) 12/25/24 19:40 Urine pH 5.5 (5-7) 12/25/24 19:40 Ur Specific [place] 1.010 (1.005-1.030) 12/25/24 19:40 Urine Protein Trace (Negative) A 12/25/24 19:40 Urine Glucose (UA) Negative (Normal) 12/25/24 19:40 Urine Ketones 1+ (Negative) H 12/25/24 19:40 Urine Blood Negative (Negative) 12/25/24 19:40 Urine Nitrate Negative (Negative) 12/25/24 19:40 Urine Bilirubin Negative (Negative) 12/25/24 19:40 Urine Urobilinogen 0.2 mg/dL (Negative) 12/25/24 19:40 Ur Leukocyte Esterase 2+ (Negative) A 12/25/24 19:40 Urine RBC 0-2 /hpf (0-2) 12/25/24 19:40 Urine WBC 51-100 /hpf (0-5) H 12/25/24 19:40 Ur Squamous Epith Cells 0-5 /hpf (0-5) 12/25/24 19:40 Amorphous Sediment Not Reportable 12/25/24 19:40 Urine Bacteria None seen /hpf (NONE) 12/25/24 19:40 Hyaline Casts 2.05 /lpf 12/25/24 19:40 Influenza A (PCR) Negative (Negative) 12/25/24 17:49 Influenza Type B (PCR) Negative (Negative) 12/25/24 17:49 RSV (PCR) Negative (Negative) 12/25/24 17:49 SARS-CoV-2 (PCR) Negative (Negative) 12/25/24 17:49 Vitals Last Vital Signs Temp 98.0 F 12/29/24 08:00 Pulse 96 12/29/24 08:00 Resp 22 H 12/29/24 08:00 BP 121/70 12/29/24 08:00 Pulse Ox 94 12/29/24 08:00 O2 Del Method Room Air 12/29/24 08:00 Discharge Plan Discharge Patient Disposition: Home Condition: Stable Prescriptions: New doxycycline hyclate 100 mg tablet 100 mg PO BID 5 Days Qty: 10 0RF tamsulosin 0.4 mg Capsule 0.4 mg PO DAILY 30 Days Qty: 30 0RF insulin lispro [Humalog U-100 Insulin] 100 unit/mL Solution See Rx Instructions .ROUTE .COMPLEX Qty: 10 0RF Rx Instructions: Inject, subcut, 3 times daily, after meals, based on sliding scale provided cyanocobalamin (vitamin B-12) [Vitamin B-12] 1,000 mcg Tablet 1,000 mcg PO DAILY 30 Days Qty: 30 0RF furosemide [Lasix] 20 mg tablet 20 mg PO QAM PRN (Reason: sob or edema or weight gain>3lbs) 30 Days Qty: 30 0RF potassium chloride [Klor-Con 10] 10 mEq tablet extended release 10 meq PO DAILY PRN (Reason: with lasix) 30 Days Qty: 30 0RF Continued (DME) Nebulizer with supplies See Rx Instructions .Route .MEDSUPPLY Qty: 1 0RF Rx Instructions: As directed (DME) lancets [FreeStyle Lancets] 28 gauge misc See Rx Instructions .ROUTE .MEDSUPPLY Qty: 100 0RF Rx Instructions: test once daily metformin 500 mg tablet 500 mg PO BID simvastatin 40 mg tablet 40 mg PO BEDTIME tamsulosin 0.4 mg capsule 0.4 mg PO BEDTIME lisinopril 10 mg tablet 10 mg PO BEDTIME omeprazole 20 mg capsule,delayed release(DR/EC) 20 mg PO BID mirtazapine 45 mg tablet 45 mg PO BEDTIME finasteride 5 mg tablet 5 mg PO DAILY Changed metoprolol tartrate 50 mg tablet 25 mg PO BID 30 Days Qty: 30 0RF Discharge Orders: Discharge Order (Routine); Ordered 12/29/24 Ordered By: Kan Guthrie Referrals: Ivette Flores MD [Hospitalist] - 1 week (lung nodule, need pet scan) Steph Adams FNP [Primary Care Provider] - Irvin Small MD [Family Provider] - Discharge Diet: Cardiac Discharge Activity: Resume usual activity Patient Instructions: Opioid Safety Activity Restrictions/Additional Instructions: - Please monitor for shortness of breath -Please follow-up with hematology oncology for your pulmonary nodule, as you need a PET scan ? Take antibiotics as prescribed ? Take Lasix as needed for shortness of breath, wheezing, weight gain -Please monitor your blood sugars closely -Monitor your blood sugars 3 times daily as after meals -Please record your blood sugars, and a blood sugar log -For your NovoLog -Please inject blood sugar after meals based on sliding scale provided -Do not inject insulin if you do not eat as hypoglycemia kills -This is a NovoLog sliding scale -Insulin sliding ?fingerstick? Insulin ?141-180?0 units/sq 181-220?2 units/sq ?221-260?4 units/sq ?261-300 6 units/sq ?301-350?8 units/sq ?351-400 10 units/sq ?401-450?12 units/sq >450? 14units/sq -If your blood sugar is greater than 500 go to the emergency room -If your blood sugar is less than 60 or at anytime you feel lightheaded or dizzy or diaphoretic or have chest palpitations check your blood sugar, and eat a hard candy or drink orange juice and go immediately to the emergency room -Remember hypoglycemia kills, so if his blood sugar is less than 60 we have to increase it by taking in a sugary meal such as a hard candy or orange juice and go to the emergency room -If you have any questions please call us where here to help Discharge Attestations Time Spent in Discharge Care*: greater than 30 min Quality Metrics Clinical Quality Measures [ No reported AMI, CVA or VTE this stay] Coding Level of Care Code 56352 Total time (in minutes) for Discharge: 45 Diagnoses Type 2 diabetes mellitus without complication, without long-term current use of insulin E11.9 Diabetes mellitus complication status: without complication Diabetes mellitus longterm insulin use: without longterm use Urinary tract infection N39.0 Benign prostatic hyperplasia without lower urinary tract symptoms N40.0 Lower urinary tract symptom presence: symptoms absent Sepsis A41.9 Acute metabolic encephalopathy G93.41 Cognitive decline R41.89 Weakness R53.1 Multiple falls R29.6 Acute respiratory failure J96.00 CHF exacerbation I50.9
[2024-12-29 11:27] LABS: Glucose Point of Care 180 mg/dL (70-110)
[2024-12-29 11:40] VITALS: BP 141/76; PULSE 86; RESP 16; O2SAT 94
[2024-12-29] MEDS: insulin lispro 100 unit/1 mL SUBCUT (11:51)
[2024-12-29 12:00] VITALS: BP 141/76; PULSE 88; RESP 21; TEMP 36.6
[2024-12-29 12:27] LABS: SARS Covid-2 Antigen Negative (Negative)
--- NOTE | 2024-12-29 13:03 | PC.NURSE ---
report phoned to [facility].
--- NOTE | 2024-12-29 14:09 | PC.NURSE ---
Addendum entered by Brandie De Jesus RN 12/29/24 14:15: discharged at 1345...not 1245 Original Note: discharged via [facility] at 1245
== END 2024-12-29 13:45 | disposition intermediate care facility (04) | DRG 871 ==
LOC: ER 20:39 → ER IP 20:43 → CSU 21:38
PROVIDERS: Admitting Provider Internal Medicine; Emergency Provider Emergency Medicine; Family Provider Family Medicine; PCP Registered Nurse; Visit Provider Family Medicine
DX: A41.9 Sepsis, unspecified organism (principal); G93.41 Metabolic encephalopathy; I50.33 Acute on chronic diastolic (congestive) heart failure; J96.00 Acute respiratory failure, unspecified whether with hypoxia or hypercapnia; J18.9 Pneumonia, unspecified organism; N39.0 Urinary tract infection, site not specified; E11.9 Type 2 diabetes mellitus without complications; B96.20 Unspecified Escherichia coli [E. coli] as the cause of diseases classified elsewhere; N40.0 Benign prostatic hyperplasia without lower urinary tract symptoms; I11.0 Hypertensive heart disease with heart failure; Z91.81 History of falling; E53.8 Deficiency of other specified B group vitamins; R91.1 Solitary pulmonary nodule; E78.5 Hyperlipidemia, unspecified; K21.9 Gastro-esophageal reflux disease without esophagitis; Z79.84 Long term (current) use of oral hypoglycemic drugs
CPT/HCPCS: 36415; 36416; 70450; 71045; 71250; 74176; 80048; 80053; 81001; 82550; 82607; 82962; 83605; 83735; 83880; 84145; 84443; 84484; 85025; 86140; 87040; 87086; 87426; 87637; 93005; 93306; 96372; 96376; 97116; 97161; 99285; A9270; J0131; J0456; J0692; J0696; J1650; J1815; J1940; J2270; J2405; J7030; J7050

== ENCOUNTER → 2025-01-18 08:57 | Outpatient (BNVA) | payer MEDICARE, OTHER, SELFPAY | PROVIDERS: Family Provider Family Medicine; PCP Registered Nurse; Visit Provider Registered Nurse | DX: N39.0 Urinary tract infection, site not specified (principal); E11.9 Type 2 diabetes mellitus without complications | CPT/HCPCS: 80048; 81000; 83036; 85025; 87086 ==

== ENCOUNTER 2025-01-22 08:12 | Oncology outpatient (recurring) (ONCR) | payer MEDICARE, OTHER, SELFPAY | END 2025-02-05 23:59 | disposition home or self-care (01) | PROVIDERS: Family Provider Family Medicine; PCP Registered Nurse; Visit Provider Internal Medicine Medical Oncology | DX: Z53.9 Procedure and treatment not carried out, unspecified reason; R91.1 Solitary pulmonary nodule; Z87.891 Personal history of nicotine dependence | CPT/HCPCS: 99204 ==

== ENCOUNTER → 2025-02-05 11:33 | Outpatient (BNVA) | payer MEDICARE, OTHER, SELFPAY | PROVIDERS: Family Provider Family Medicine; PCP Registered Nurse; Visit Provider Registered Nurse | DX: E11.9 Type 2 diabetes mellitus without complications (principal) | CPT/HCPCS: 80048 ==

== ENCOUNTER 2025-03-06 15:06 | Oncology outpatient (recurring) (ONCR) | payer MEDICARE, OTHER, SELFPAY ==
--- NOTE | 2025-03-02 13:00 | PETR_ITS ---
PROCEDURE INFORMATION: Exam: PET/CT Skull Base to Mid-thigh Exam date and time: 03/02/2025 2:16 PM Age: 84 years old Clinical indication: Condition or disease; Condition/disease: Spiculated nodule in the right upper lobe; Additional info: Lung nodule LABS AND CLINICAL REPORTS: Glucose: 92 mg/dl Treatment strategy for malignancy (PET staging): Restaging (PS) TECHNIQUE: Imaging protocol: Following at least four-hour fasting and following the injection of radiopharmaceutical, low dose CT images were obtained. Then, PET images were obtained. Attenuation corrected images were constructed using the CT scan. Fused images of PET and CT were reviewed. The standardized uptake values (SUV) reported below are maximum values within a region of interest, expressed in gm/ml. Exam includes orbital meatal line to mid-thigh. SUV normalization method: BodyWeight Radiopharmaceutical: 11.71 mCi F-18 FDG (Fluorodeoxyglucose), IV. Time of imaging post radiopharmaceutical administration: 48 minutes Injection site: right ac COMPARISON: [place] [id number] 12/27/2024 5:49 AM FINDINGS: Brain: Visualized brain has normal physiologic uptake. Pharynx: No abnormal uptake. Larynx: No abnormal uptake. Lungs, pleura and trachea: Spiculated 1.3 cm right upper lobe nodule on axial image 77 shows SUV max 6.4. Mild left basilar platelike atelectasis versus scarring. Heart: Normal physiologic uptake. Coronary arteries: Moderate coronary artery calcification. Mediastinal space: No abnormal uptake. Liver: No abnormal uptake. Gallbladder and biliary ducts: No abnormal uptake. Pancreas: No abnormal uptake. Spleen: No abnormal uptake. Adrenal glands: No abnormal uptake. 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 Kidneys and ureters: Normal physiologic uptake. Bilateral renal cysts and non FDG avid left renal subcentimeter hypodensity too small to characterize. Stomach and bowel: Relative thickening of underdistended proximal stomach with associated asni-gq-kgzcdqec FDG uptake. Diffuse FDG uptake throughout small and large bowel without underlying CT abnormality is likely benign physiologic or inflammatory. Colonic diverticulosis without findings of diverticulitis. Vasculature: No abnormal uptake. Heavy systemic atherosclerotic calcification without aortic aneurysm. Lymph nodes: No abnormal uptake. No lymphadenopathy in the head, neck, chest, abdomen, pelvis, and extremities. Skeleton: Degenerative change along the spine, acromioclavicular and sacroiliac joints. Mild periarticular uptake at the right shoulder and hip is likely inflammatory. Soft tissues: No abnormal uptake in the visualized head, neck, chest, abdomen, pelvis, and extremities. Small fat containing umbilical and jnhg-pgtxisz-bxbo-right inguinal hernias. METRICS: Mediastinal blood pool: SUV mean 2.1 Liver uptake: SUV mean 2.4 PET/PET skull to thigh INIT [id number] IMPRESSION: 1. FDG avid 1.3 cm right upper lobe nodule suspicious for malignancy. 2. Relative thickening of underdistended stomach with associated kxng-nc-bwzoipjk FDG uptake may be physiologic or inflammatory gastritis. 3. Additional chronic and incidental findings as above.
--- NOTE | 2025-03-06 17:32 | N.ONRAD NP_ITS ---
Radiation Oncology New Patient Visit Patient: Maldonado Madrigal MR#: [id number] : 1940> Age: 84> Sex: Male> Dictated by: Rashad Bruner DO/RANI/BRIGITTE Date of Service: 03/06/2025 Referring Physician(s) : Dr Ivette Flores Diagnosis: 1.4cm KFVEHKKIBK-VZO-kvunwlfojdjb located, MD-ADENOCARCINOMA, ASYMPTOMATIC, STAGE: I-T1N0M0 ICD-10: C34.11 Radiotherapy to date: NONE Summary > No prior radiation therapy. Chief Complaint / History of Present Illness: This is a pleasant 84-year-old male retired [employer] who has a symptomatic MD-ADENOCARCINOMA RUL. Patient underwent a CT C/A/P on December 27, 2024 which showed a 1.4 mm RUL nodule with adjacent pleural thickening that was suspicious for malignancy. Patient denied any cough, hemoptysis, bony tenderness or any other constitutional symptoms. Patient underwent CT BX on 02/13/2025 that noted MD-ADENOCARCINOMA. PET/CT on 03/02/2025 confirmed a 1.3 cm spiculated RUL (6.4) mass with no lymphadenopathy. Patient is a prior smoker of 12 pack years quitting some 40 years ago. He also admits to occasional beer when he was in the [employer]. He was Wor[employer] retiring from [employer] in the 80s. Current Medications: Last Reconciled 03/06/25 by Carmel Ceja MA finasteride 5 mg PO DAILY lancets (FreeStyle Lancets) test once daily lisinopril TAKE 1 TABLET DAILY metformin 500 mg PO BID metoprolol tartrate TAKE 1 TABLET TWICE A DAY mirtazapine 45 mg PO BEDTIME [Nebulizer with supplies As directed] omeprazole 20 mg PO BID simvastatin TAKE 1 TABLET DAILY sodium chloride 1,000 mg PO DAILY 30 days tamsulosin 0.4 mg PO BEDTIME Allergies: sulfamethoxazole (From Bactrim) Allergy (Verified 03/06/25 15:10) swelling trimethoprim (From Bactrim) Allergy (V Medical History: Reviewed 03/06/25 @ 15:09 by Carmel Ceja MA) BPH (benign prostatic hyperplasia) Type 2 diabetes mellitus Asymptomatic NSCLC Surgical History: N/A Family History: N/A Reviewed 03/06/25 @ 15:09 by Carmel Ceja MA) Other Cancer Social History: Patient lives at home alone and 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 Is a prior 04-ltpu-hais smoking history quitting some 40 years ago. He denies any other cancer issues. Reviewed 03/06/25 @ 15:09 by Carmel Ceja MA) Smoking and tobacco/nicotine status: As above Alcohol intake: Very Occasional Beer in the [employer]. Substance/Drug Use: never Adopted: No Caregiver/support person: No Lives independently: NO Household members: spouse Marital status: Do you think of yourself as: Straight/Heterosexual Current gender identity: Male Current Complaints / Review of Systems: . As above. Vital Signs: Performed on 03/06/2025 3:34 PM BMI - 26.632 kg/m2 (high), Height - 66 in, Weight - 165 lbs, Temperature - 98.7 f, Pulse - 75 /min, Respiration - 17 /min, O2 Sat - 97 %, Pain - 0, Fatigue - 0 and BP - 152/ 67 mm(hg)(high/). Physical Exam: Patient is alert and oriented and answers questions appropriately. Head no masses appreciated. Extraocular muscles intact. Oral cavity exam showed no mucosal lesions Neck no cervical lymphadenopathy. Chest lungs are clear to auscultation. No intercostal retraction noted. Abdomen soft nontender with no hepatosplenomegaly. Extremities intact x 4. No peripheral edema noted. Performance Status: KPS 90 Pathology: MD-ADENOCARCINOMA RUL Lab: None Imaging: See HPI Impression: 1.4cm [id number]-MZI-yfvtovpbzvyh located, MD-ADENOCARCINOMA, ASYMPTOMATIC, STAGE: I-T1N0M0 ICD-10: C34.11 Plan: Options were discussed with the patient. Patient opted for SBRT to the RUL mass which is peripheral. CT simulation on 03/08/2025 with compression device. SBRT of 5000 cGy in 5 fractions to be completed every other day fractionation. Consent signed under his own free will after all questions answered. Signed by: 03/06/2025 5:31:55 PM <<Signature on File>> Time spent with patient: 65minutes CPT Code: * CPT Code: *
== END 2025-03-07 23:59 | disposition home or self-care (01) ==
PROVIDERS: Family Provider Family Medicine; PCP Registered Nurse; Visit Provider Internal Medicine Medical Oncology
DX: C34.11 Malignant neoplasm of upper lobe, right bronchus or lung (principal); R03.0 Elevated blood-pressure reading, without diagnosis of hypertension; Z87.891 Personal history of nicotine dependence
CPT/HCPCS: 78815; 99205; 99213; 99214; A9552

== ENCOUNTER 2025-03-23 10:03 | Oncology outpatient (recurring) (ONCR) | payer MEDICARE, OTHER, SELFPAY | END 2025-03-23 23:59 | disposition home or self-care (01) | PROVIDERS: Family Provider Family Medicine; PCP Registered Nurse; Visit Provider Radiology Radiation Oncology | DX: Z51.0 Encounter for antineoplastic radiation therapy (principal); C34.11 Malignant neoplasm of upper lobe, right bronchus or lung | CPT/HCPCS: 77300; 77301; 77334; 77338; 77373; 77470 ==

== ENCOUNTER 2025-03-29 10:33 | Oncology outpatient (recurring) (ONCR) | payer MEDICARE, OTHER, SELFPAY | END 2025-04-07 23:59 | disposition home or self-care (01) | PROVIDERS: Family Provider Family Medicine; PCP Registered Nurse; Visit Provider Radiology Radiation Oncology | DX: Z51.0 Encounter for antineoplastic radiation therapy (principal); C34.11 Malignant neoplasm of upper lobe, right bronchus or lung | CPT/HCPCS: 77336; 77373 ==

== ENCOUNTER 2025-04-07 16:42 | Inpatient (IN) | payer MEDICARE, OTHER, SELFPAY ==
[2025-04-07] VITALS (7 sets, daily range): BP systolic 103–151; BP diastolic 56–86; PULSE 88–101; RESP 18–28; TEMP 36.7–37.1; O2SAT 94–98; BMI 26.4; BMI 26.6
--- NOTE | 2025-04-07 17:09 | CTR_ITS ---
PROCEDURE INFORMATION: Exam: CT Cervical Spine Without Contrast Exam date and time: 04/07/2025 6:12 PM Age: 84 years old Clinical indication: Injury or trauma; Blunt trauma; EMS arrival for ground level fall at home. C collar in place. TECHNIQUE: Imaging protocol: Computed tomography of the cervical spine without contrast. Radiation optimization: All CT scans at this facility use at least one of these dose optimization techniques: automated exposure control; mA and/or kV adjustment per patient size (includes targeted exams where dose is matched to clinical indication); or iterative reconstruction. COMPARISON: PT PET skull to thigh SUBS [id number] 03/02/2025 2:16 PM RADIATION DOSE METRICS: Total DLP (mGy-cm): 573.54 FINDINGS: Bones: No acute fracture. Normal alignment. No significant disc bulge or herniation. No severe spinal canal stenosis. Chronic marked degenerative disc and facet changes throughout the cervical spine with multilevel foramina compromise. Lungs: Lung apices are normal. Soft tissues: Unremarkable. CT/CT cervical spin wo con* [id number] IMPRESSION: No acute findings.
--- NOTE | 2025-04-07 17:09 | ECG_ITS ---
[facility] Date[facility] 2025-04-07 Pat Name: Maldonado Madrigal Department: Room: Gender: Male Chili Maker: : 1940 Requested By: Krystal Rubio Order Number: [id number] Timothy MD: Wil Campbell M.D. Measurements Intervals [place] Rate: 90 P: 31 WA: 146 QRS: 32 QRSD: 141 T: 88 QT: 379 QTc: 465 Interpretive Statements SINUS RHYTHM LEFT BUNDLE BRANCH BLOCK [120+ ms QRS DURATION, 80+ ms Q/S IN V1/V2, 85+ ms R IN I/aVL/V5/V6] Compared to ECG 12/26/2024 17:05:28 Left bundle-branch block now present Myocardial infarct finding no longer present Electronically Signed On 04-10-2025 11:42:03 CDT by Wil Campbell M.D. [email or web address]
--- NOTE | 2025-04-07 17:09 | CTR_ITS ---
PROCEDURE INFORMATION: Exam: CT Head Without Contrast Exam date and time: 04/07/2025 6:09 PM Age: 84 years old Clinical indication: Injury or trauma; Blunt trauma (contusions or hematomas); EMS arrival for ground level fall at home. C collar in place. TECHNIQUE: Imaging protocol: Computed tomography of the head without contrast. Radiation optimization: All CT scans at this facility use at least one of these dose optimization techniques: automated exposure control; mA and/or kV adjustment per patient size (includes targeted exams where dose is matched to clinical indication); or iterative reconstruction. COMPARISON: CT head wo con* [id number] 12/25/2024 6:06 PM RADIATION DOSE METRICS: Total DLP (mGy-cm): 1096.09 FINDINGS: Brain: Normal. No hemorrhage. Bilateral ill-defined periventricular hypodensities consistent with mild chronic microvascular white matter ischemic changes. Cerebral ventricles: No ventriculomegaly. Paranasal sinuses: Visualized sinuses are unremarkable. No fluid levels. Mastoid air cells: Visualized mastoid air cells are well aerated. Bones: Unremarkable. No acute fracture. Soft tissues: Unremarkable. CT/CT head wo con* [id number] IMPRESSION: No acute intracranial abnormality.
--- NOTE | 2025-04-07 17:09 | XRR_ITS ---
PROCEDURE INFORMATION: Exam: XR Left Hip Exam date and time: 04/07/2025 6:07 PM Age: 84 years old Clinical indication: Left hip; Lt hip pain post fall TECHNIQUE: Imaging protocol: Radiologic exam of the left hip. Views: 2 or 3 views hip with pelvis when performed. COMPARISON: PT PET skull to thigh SUBS [id number] 03/02/2025 2:16 PM FINDINGS: Bones/joints: No acute fracture or subluxation. No periosteal reaction or callus formation. Soft tissues: Unremarkable. XR/XR hip LT 2-3V wo/w pel* [id number] IMPRESSION: No acute fracture or subluxation.
--- NOTE | 2025-04-07 17:09 | XRR_ITS ---
PROCEDURE INFORMATION: Exam: XR Chest Exam date and time: 04/07/2025 6:07 PM Age: 84 years old Clinical indication: SOB; Cough; Fall TECHNIQUE: Imaging protocol: Radiologic exam of the chest. Views: 1 view. COMPARISON: [place] [id number] 12/27/2024 5:49 AM FINDINGS: Lungs: Posterior left lower lobe opacity overlying the costophrenic angle, concerning for pneumonia. Pleural spaces: No pneumothorax. Heart/Mediastinum: Unremarkable. No cardiomegaly. Bones/joints: Unremarkable. XR/XR chest 1V portable [id number] IMPRESSION: Posterior left lower lobe opacity overlying the costophrenic angle, concerning for pneumonia versus a small effusion.
[2025-04-07] MEDS: morphine 4 mg/mL SDV 1 mL IVP (18:03)
[2025-04-07 18:21] LABS: Basophils % 0.1 %; Hematocrit 37.9 % (37-53); Lymphocytes # 0.6 10^3/uL (0.8-4.8); Lymphocytes % 5.3 %; Mean Corpuscular HGB Conc 32.5 g/dL (30-55); Mean Corpuscular Hemoglobin 29.6 pg (27-33); Mean Corpuscular Volume 91.1 fl (82-101); Mean Platelet Volume 9.9 fL (7.4-10.4); Monocytes % 9.1 %; Neutrophils % 84.9 %; Nucleated Red Blood Cells % 0 %; Platelet Count 149 10^3/cmm (157-399); Red Blood Count 4.16 10^6/uL (3.85-5.65); Red Cell Distribution Width 13.4 % (12.1-15.1); White Blood Count 11.43 10^3/uL (3.29-11.43)
[2025-04-07 18:51] LABS: Alanine Aminotransferase 12 U/L (0-41); Albumin Level 3.7 g/dL (3.5-5.2); Alkaline Phosphatase 74 U/L (40-130); Anion Gap 20.8 (5-19); Aspartate Amino Transferase 22 U/L (0-40); Blood Urea Nitrogen 18 mg/dL (8-23); Calcium 8.7 mg/dL (8.5-10.5); Carbon Dioxide 19 mmol/L (22-29); Chloride 96 mmol/L (98-107); Creatinine Clr Calc Pharmacy 64.9645; Globulin 2.1 g/dL (1.3-4.6); Glucose 136 mg/dL (65-115); NT Pro B Type Natriuretic Pept 1565 pg/mL (0-450); Osmolality Calculated 278 mOsm/kg (285-295); Potassium 3.8 mmol/L (3.5-5.1); Sodium 132 mmol/L (136-145); Total Bilirubin 0.7 mg/dL (0.15-1.2); Total Protein 5.8 g/dL (6.6-8.7)
[2025-04-07 19:08] LABS: Troponin(5th) Baseline 62 ng/L (0-15)
--- NOTE | 2025-04-07 19:09 | ECG_ITS ---
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1940 Requested By: Krystal Rubio Order Number: [id number] Reading MD: KASSY BELTRAN Measurements Intervals [place] Rate: 94 P: 43 VT: 141 QRS: 39 QRSD: 145 T: 113 QT: 387 QTc: 485 Interpretive Statements SINUS RHYTHM WITH OCCASIONAL VENTRICULAR PREMATURE COMPLEXES LEFT BUNDLE BRANCH BLOCK [120+ ms QRS DURATION, 80+ ms Q/S IN V1/V2, 85+ ms R IN I/aVL/V5/V6] Compared to ECG 04/07/2025 17:41:06 Ventricular premature complex(es) now present Electronically Signed On 04-11-2025 23:01:35 CDT by KASSY BELTRAN [email or web address]
--- NOTE | 2025-04-07 19:48 | ED_ITS ---
HPI - Fall 2 General: Chief Complaint: Fall Stated Complaint: WEAKNESS Time Seen by Provider: 04/07/25 16:50 History of Present Illness: 84-year-old male patient presents to the emergency department via EMS. Patient states that he fell patient did not have any loss of consciousness patient states he was a little dizzy before the fall. Patient just finished his last chemo treatment and has been struggling with generalized weakness. Patient denies any fever. Patient is not anticoagulated patient complains of some hip pain otherwise states he is not having any pain. Related Data Home Medications ?Medication ?Instructions ?Recorded ?Confirmed metformin 500 mg tablet 500 mg PO BID 12/25/2404/08 mirtazapine 45 mg tablet 45 mg PO BEDTIME 12/25/24 omeprazole 20 mg capsule,delayed 20 mg PO BID 12/25/24 04/08/25 release tamsulosin 0.4 mg capsule 0.4 mg PO BEDTIME 12/25/24 0 04/08/25 Previous Rx's ?Medication ?Instructions ?Recorded lancets 28 gauge (FreeStyle #100 ea 01/17/21 Lancets) Nebulizer with supplies #1 ea 07/16/23 sodium chloride 1,000 mg soluble 1,000 mg PO DAILY 30 days #30 tabs 01/19/25 tablet lisinopril 10 mg tablet See Rx Instructions .Route 0 02/09/25 .COMPLEX #90 tabs metoprolol tartrate 50 mg tablet See Rx Instructions . Route 02/09/25 .COMPLEX #180 tabs simvastatin 40 mg tablet See Rx Instructions .Route 0 02/09/25 .COMPLEX #90 tabs finasteride 5 mg tablet See Rx Instructions .Route 0 03/19/25 .COMPLEX #90 tabs Allergies Allergy/AdvReac Type Severity Reaction Status Date / Time sulfamethoxazole (From Allergy swelling Verified 03/06/25 15:10 Bactrim) trimethoprim (From Bactrim) Allergy swelling Verified 03/06/25 15:10 [facility] ED 2 [facility]: Medical History (Updated 04/07/25 @ 20:34 by Diego Fowler MD) Hyponatremia Adenocarcinoma of right lung BPH (benign prostatic hyperplasia) Type 2 diabetes mellitus Family History Other Cancer Social History (Updated 04/07/25 @ 20:28 by Diego Fowler MD) Smoking and tobacco/nicotine status: former use of tobacco/nicotine Quit status (tobacco/nicotine): has quit using Year quit tobacco: 1984 Former quit date comment: After pack per day for 20 years Alcohol intake: former Year of sobriety/quit date alcohol: None Former alcohol use details: Previous occasional beer Substance/Drug Use: never Additional social history: DNR as discussed with Diego Fowler MD on 04/07/2025 patient states he is when his 3 years ago. 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 Given patient's mechanism of injury and complaints prior to the fall. I did do a cardiac workup as well as imaging. CT cervical spine was negative for any acute findings. CT head was negative for any acute findings. Chest x-ray does show a posterior left lower lobe opacity concerning for pneumonia patient states he has had a cough and congestion and has not felt well lately. Hip x-ray does not reveal any acute findings. Patient does have a mildly elevated white blood cell count BNP is elevated however this is within patient's baseline patient's delta Trope was within normal limits. Given patient's generalized weakness fall and findings consistent with pneumonia I will go ahead and plan on admitting him at this time. I will go ahead and start Rocephin and azithromycin at this time I will call and discussed this case with hospitalist for admission. Lab Data 04/08/25 02:34 04/08/25 02:34 Radiology Impressions Cervical Spine CT 04/07/25 17:09 IMPRESSION: No acute findings. Chest X-Ray 04/07/25 17:09 IMPRESSION: Posterior left lower lobe opacity overlying the costophrenic angle, concerning for pneumonia versus a small effusion. Head CT 04/07/25 17:09 IMPRESSION: No acute intracranial abnormality. Hip/Pelvis X-Ray 04/07/25 17:09 IMPRESSION: No acute fracture or subluxation. Laboratory Results WBC 11.43 10^3/uL (3.29-11.43) 04/07/25 17:57 RBC 4.16 10^6/uL (3.85-5.65) 04/07/25 17:57 Hgb 12.30 g/dL (11.27-16.99) 04/07/25 17:57 Hct 37.9 % (37-53) 04/07/25 17:57 MCV 91.1 fl (82-101) 04/07/25 17:57 MCH 29.6 pg (27-33) 04/07/25 17:57 MCHC 32.5 g/dL (30-55) 04/07/25 17:57 RDW 13.4 % (12.1-15.1) 04/07/25 17:57 Plt Count 149 10^3/cmm (157-399) L 04/07/25 17:57 MPV 9.9 fL (7.4-10.4) 04/07/25 17:57 Neut % (Auto) 84.9 % 04/07/25 17:57 Lymph % (Auto) 5.3 % 04/07/25 17:57 [place] % (Auto) 9.1 % 04/07/25 17:57 Eos % (Auto) 0.0 % 04/07/25 17:57 Baso % (Auto) 0.1 % 04/07/25 17:57 Neut # (Auto) 9.70 10^3/uL (1.8-7.7) H 04/07/25 17:57 Lymph # (Auto) 0.6 10^3/uL (0.8-4.8) L 04/07/25 17:57 [place] # (Auto) 1.0 10^3/uL (0.2-0.9) H 04/07/25 17:57 Eos # (Auto) 0.0 10^3/uL (0.0-0.8) 04/07/25 17:57 Baso # (Auto) 0.0 10^3/uL (0.0-0.1) 04/07/25 17:57 Nucleated RBC % (auto) 0 % 04/07/25 17:57 Nucleated RBCs # 0.0 /100WBC 04/07/25 17:57 Sodium 132 mmol/L (136-145) L 04/07/25 17:57 Potassium 3.8 mmol/L (3.5-5.1) 04/07/25 17:57 Chloride 96 mmol/L (98-107) L 04/07/25 17:57 Carbon Dioxide 19 mmol/L (22-29) L 04/07/25 17:57 Anion Gap 20.8 (5-19) H 04/07/25 17:57 BUN 18 mg/dL (8-23) 04/07/25 17:57 Creatinine 0.8 mg/dL (0.7-1.2) 04/07/25 17:57 GFR Calculation Not Reportable 04/07/25 17:57 Glucose 136 mg/dL (65-115) H 04/07/25 17:57 Calculated Osmolality 278 mOsm/kg (285-295) L 04/07/25 17:57 Calcium 8.7 mg/dL (8.5-10.5) 04/07/25 17:57 Phosphorus 1.8 mg/dL (2.5-4.5) L 04/07/25 17:57 Magnesium 1.6 mg/dL (1.7-2.3) L 04/07/25 17:57 Total Bilirubin 0.7 mg/dL (0.15-1.2) 04/07/25 17:57 AST 22 U/L (0-40) 04/07/25 17:57 ALT 12 U/L (0-41) 04/07/25 17:57 Alkaline Phosphatase 74 U/L (40-130) 04/07/25 17:57 Creatine Kinase 339 U/L (39-308) H* 04/07/25 17:57 Troponin T Baseline 62 ng/L (0-15) H 04/07/25 17:57 Troponin T Hi Sens 6Hr 50.91 ng/L (0-15) H 04/07/25 00:05 Troponin T Hi Sens 6Hr Delta 11.09 ng/L (0-12) 04/07/25 00:05 NT-Pro-B Natriuret Pep 1565 pg/mL (0-450) H 04/07/25 17:57 Total Protein 5.8 g/dL (6.6-8.7) L 04/07/25 17:57 Albumin 3.7 g/dL (3.5-5.2) 04/07/25 17:57 Globulin 2.1 g/dL (1.3-4.6) 04/07/25 17:57 TSH 1.62 uIU/mL (0.27-4.20) 04/07/25 17:57 All radiology interpretation(s) finalized by discharge Discharge Plan Discharge Patient Disposition: Admitted As Inpatient Admit Provider: Diego Fowler Clinical Impression: Generalized weakness, Pneumonia Condition: Stable Coding Level of Care Code ED Production Planning Supervisor for Leticia Myers
[2025-04-07] MEDS: cefTRIAXone 1,000 mg SDV 1000 MG IVP (19:56)
[2025-04-07] MEDS: azithromycin 500 MG in sodium chloride 0.9% 250 ML 250 MG IV (20:13)
[2025-04-07 20:16] LABS: Troponin 5 2HR 59.42 ng/L (0-15)
[2025-04-07 20:17] LABS: Troponin 5 2HR Delta -2.58 ABS# (0-10)
--- NOTE | 2025-04-07 20:20 | PM.HP ---
Providers/Chief Complaint Admitting Physician: Diego Fowler MD Primary Care Provider: KELLY Ann Chief Complaint: WEAKNESS History of Present Illness Maldonado Madrigal is a 84 year old male remote previous smoking history smoked a pack per day for 20 years quit 40 years previous recent 5 radiation treatments for right upper lung 14 mm nodule with adjacent pleural thickening. Patient had a CT-guided biopsy of the lung mass February at the [facility]. Pathology is well to moderately differentiated adenocarcinoma consistent with lung primary. PET scan March 02, 2025 shows FDG avid 1.3 cm right upper lobe nodule. No other sign of metastatic disease. He lives alone has been progressively weaker. Last week he could walk for the last 3 days he could not. He has been coughing up yellow phlegm and fell today could not get up. He called his granddaughter who called the ambulance. He states there was a 2-hour delay when he was on the floor. Tells me he daughter and granddaughter have suggested that he may need assisted living. Patient states he has long-term care insurance. Patient with complaints of cough productive of yellow plus and also chills left hip pain. X-ray shows no fracture of the left hip. X-ray shows left lower lung retrocardiac infiltrate Review of Systems Narrative: General positive for chills no fever or sweats. States he is so weak now that he cannot stand or walk. Could get off the floor today cannot move himself up in bed Cardiovascular no chest pain palpitations or edema Respiratory positive for cough productive of yellow pus copious amounts he is also short of breath and dyspneic on exertion GI positive for nausea no vomiting he has had diarrhea denies blood in stool negative for dysuria or hematuria but urine has been dark Neuro no seizures strokes limb weakness Hematologic negative for bleeding or clotting disorder Malignancy he has a recent adenocarcinoma of the lung treated with radiation but no chemo Medications/Allergies Home Medications ?Medication ?Instructions ?Recorded ?Confirmed ?Last Taken ?Type lancets 28 gauge (FreeStyle #100 ea 01/17/21 03/06/25 Unknown Rx Lancets) Nebulizer with supplies #1 ea 07/16/23 03/06/25 Unknown Rx metformin 500 mg tablet 500 mg PO BID 12/25/24 03/06/25 12/24/24 History mirtazapine 45 mg tablet 45 mg PO BEDTIME 12/25/24 03/06/25 12/24/24 History omeprazole 20 mg capsule,delayed 20 mg PO BID 12/25/24 03/06/25 12/24/24 History release tamsulosin 0.4 mg capsule 0.4 mg PO BEDTIME 12/25/24 03/06/25 12/24/24 History sodium chloride 1,000 mg soluble 1,000 mg PO DAILY 30 days #30 tabs 01/19/25 03/06/25 Unknown Rx tablet lisinopril 10 mg tablet See Rx Instructions .Route 02/09/25 03/06/25 Unknown Rx .COMPLEX #90 tabs metoprolol tartrate 50 mg tablet See Rx Instructions .Route 02/09/25 03/06/25 Unknown Rx .COMPLEX #180 tabs simvastatin 40 mg tablet See Rx Instructions .Route 02/09/25 03/06/25 Unknown Rx .COMPLEX #90 tabs finasteride 5 mg tablet See Rx Instructions .Route 03/19/25 Unknown Rx .COMPLEX #90 tabs Allergies Allergy/AdvReac Type Severity Reaction Status Date / Time sulfamethoxazole (From Allergy swelling Verified 03/06/25 15:10 Bactrim) trimethoprim (From Bactrim) Allergy swelling Verified 03/06/25 15:10 PFSH Acute PFSH: Medical History (Updated 04/07/25 @ 20:34 by Diego Fowler MD) Hyponatremia Adenocarcinoma of right lung BPH (benign prostatic hyperplasia) Type 2 diabetes mellitus Family History Other Cancer Social History (Updated 04/07/25 @ 20:28 by Diego Fowler MD) Smoking and tobacco/nicotine status: former use of tobacco/nicotine Quit status (tobacco/nicotine): has quit using Year quit tobacco: 1984 Former quit date comment: After pack per day for 20 years Alcohol intake: former Year of sobriety/quit date alcohol: None Former alcohol use details: Previous occasional beer Substance/Drug Use: never Additional social history: DNR as discussed with Diego Fowler MD on 04/07/2025 patient states he is when his 3 years ago. 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64 Do you think of yourself as: Straight/Heterosexual Current gender identity: Male Vitals/I&O/Wt Last Vital Signs Temp 98.1 F 04/07/25 16:46 Pulse 88 04/07/25 18:05 Resp 18 04/07/25 16:46 BP 151/86 04/07/25 18:05 Pulse Ox 98 04/07/25 18:05 O2 Del Method Room Air 04/07/25 18:05 Weight last 48 hrs Weight 74.389 kg Physical Exam Narrative: General Well-developed well-nourished male migrated down the bed CV regular rate and rhythm no loud murmurs Lungs diminished breath sounds in the bases left side with coarse crackle Abdomen positive bowel sounds soft nontender Calves no tenderness cords pretrip edema Neck no JVD Data 04/07/25 17:57 04/07/25 17:57 A&P Assessment and plan (1) Left lower lobe pneumonia: Community-acquired and will be treated with Rocephin and azithromycin. Due to the disproportionate degree of weakness and muscle weakness we will test for viral flu COVID RSV (2) Generalized weakness: Patient was on the floor for 2 hours will check CPK (3) Adenocarcinoma of right lung: Has received radiation treatment. Sees Dr. Flores (4) Dementia: He is alert and oriented to person place and date today (5) Type 2 diabetes mellitus: Cover with sliding scale insulin. Continue with metformin. He did not receive contrast (6) BPH (benign prostatic hyperplasia): Continue with finasteride and tamsulosin. Monitor for urine retention if not voiding (7) Hyponatremia: Is on chronic salt tabs PDMP PDMP Reviewed: Not Reviewed Attestations Medical Necessity Statement*: Patient is admitted to the hospital pneumonia borderline elevated white count and hyponatremia will require greater than 2 midnights in the hospital and physical therapy Coding Level of Care Code 91354 Diagnoses Left lower lobe pneumonia J18.9 Generalized weakness R53.1 Adenocarcinoma of right lung C34.91 Dementia F03.90 Type 2 diabetes mellitus without complication, without long-term current use of insulin E11.9 Diabetes mellitus mcc insulin use: without forest law and policy professor use Diabetes mellitus complication status: without complication Benign prostatic hyperplasia without lower urinary tract symptoms N40.0 Lower urinary tract symptom presence: symptoms absent Hyponatremia E87.1 Time Spent (min) 70
[2025-04-07 20:33] LABS: Thyroid Stimulating Hormone 1.62 uIU/mL (0.27-4.20)
[2025-04-07 20:38] LABS: Creatine Phosphokinase 339 U/L (39-308)
[2025-04-07 21:02] LABS: Magnesium 1.6 mg/dL (1.7-2.3); Phosphorus 1.8 mg/dL (2.5-4.5)
[2025-04-07] MEDS: enoxaparin 40 mg/0.4 mL Syringe SUBCUT (23:17)
[2025-04-07] MEDS: mirtazapine 30 mg Tablet 45 MG PO (23:17)
[2025-04-07] MEDS: tamsulosin 0.4 mg Capsule PO (23:17)
[2025-04-07] MEDS: sodium chlor 0.9% + KCl 20 mEq 20 MEQ/1,000 ML BAG 125 MEQ IV (23:20)
[2025-04-07 23:38] LABS: Glucose Point of Care 127 mg/dL (70-110)
[2025-04-08] VITALS (9 sets, daily range): BP systolic 102–133; BP diastolic 56–76; PULSE 77–98; RESP 16–20; TEMP 36.5–36.8; O2SAT 90–96; BMI 27.2
[2025-04-08 00:54] LABS: Troponin 5 6HR 50.91 ng/L (0-15)
[2025-04-08 00:57] LABS: Troponin 5 6HR Delta 11.09 ng/L (0-12)
[2025-04-08 03:15] LABS: Basophils % 0.1 %; Hematocrit 32.5 % (37-53); Lymphocytes # 0.6 10^3/uL (0.8-4.8); Lymphocytes % 8.2 %; Mean Corpuscular HGB Conc 32.9 g/dL (30-55); Mean Corpuscular Hemoglobin 29.9 pg (27-33); Mean Corpuscular Volume 90.8 fl (82-101); Mean Platelet Volume 10.3 fL (7.4-10.4); Monocytes # 0.8 10^3/uL (0.2-0.9); Monocytes % 10.4 %; Neutrophils # 6.17 10^3/uL (1.8-7.7); Neutrophils % 80.6 %; Nucleated Red Blood Cells % 0 %; Platelet Count 120 10^3/cmm (157-399); Red Blood Count 3.58 10^6/uL (3.85-5.65); Red Cell Distribution Width 13.4 % (12.1-15.1); White Blood Count 7.66 10^3/uL (3.29-11.43)
[2025-04-08 04:22] LABS: Blood Urea Nitrogen 15 mg/dL (8-23); Calcium 8.1 mg/dL (8.5-10.5); Carbon Dioxide 20 mmol/L (22-29); Creatinine Clr Calc Pharmacy 65.1918; Glucose 106 mg/dL (65-115)
[2025-04-08 05:31] LABS: Influenza A NEGATIVE (Negative); Influenza B NEGATIVE (Negative); Respiratory Syncytial Virus Ce NEGATIVE (Negative); SARS-CoV-2 PCR NEGATIVE (Negative)
[2025-04-08 05:51] LABS: Anion Gap 17.7 (5-19); Chloride 102 mmol/L (98-107); Osmolality Calculated 283 mOsm/kg (285-295); Potassium 3.7 mmol/L (3.5-5.1); Sodium 136 mmol/L (136-145)
[2025-04-08 06:35] LABS: Glucose Point of Care 95 mg/dL (70-110)
[2025-04-08] MEDS: metformin 500 mg Tablet PO (07:56)
[2025-04-08] MEDS: guaiFENesin 600 mg Tablet 1200 MG PO ×2 (07:56→17:42)
[2025-04-08] MEDS: sodium chlor 0.9% + KCl 20 mEq 20 MEQ/1,000 ML BAG 125 MEQ IV (07:56)
[2025-04-08] MEDS: pantoprazole DR 40 mg Tablet PO ×2 (07:56→17:42)
[2025-04-08] MEDS: lisinopril 10 mg Tablet PO (07:57)
[2025-04-08] MEDS: cefTRIAXone 1,000 mg SDV 1000 MG IVP ×2 (07:57→20:21)
[2025-04-08] MEDS: finasteride 5 mg Tablet PO (07:57)
[2025-04-08] MEDS: metoprolol tartrate 50 mg Tablet PO ×2 (07:57→17:42)
[2025-04-08] MEDS: atorvastatin 40 mg Tablet 20 MG PO (07:57)
[2025-04-08] MEDS: sodium chloride 1 gm Tablet PO (07:57)
--- NOTE | 2025-04-08 11:29 | CTR_ITS ---
PROCEDURE INFORMATION: Exam: CTA Chest With Contrast Exam date and time: 04/08/2025 1:28 PM Age: 84 years old Clinical indication: Shortness of breath and wheezing; Additional info: SOB, wheezing TECHNIQUE: Imaging protocol: Computed tomographic angiography of the chest with contrast. Exam focused on the arteries. 3D rendering (Not supervised by radiologist): MIP and/or 3D reconstructed images were created by the technologist. Radiation optimization: All CT scans at this facility use at least one of these dose optimization techniques: automated exposure control; mA and/or kV adjustment per patient size (includes targeted exams where dose is matched to clinical indication); or iterative reconstruction. Contrast material: OMNIPAQUE 350; Contrast volume: 66 ml; Contrast route: INTRAVENOUS (IV); COMPARISON: PT PET skull to thigh SUBS [id number] 03/02/2025 2:16 PM RADIATION DOSE METRICS: Total DLP (mGy-cm): 387.35 FINDINGS: Pulmonary arteries: Normal. No pulmonary emboli. Aorta: Unremarkable. No aortic aneurysm. No aortic dissection. Lungs: There is a large area of dense consolidation involving much of the left lower lobe. Faint patchy infiltrate involves the lingula. There is a 1.4 cm rounded spiculated nodule involving the right upper lobe laterally. Both lungs demonstrate diffuse bronchial wall thickening. Pleural spaces: Tiny bilateral pleural effusions are noted. Heart: Unremarkable. No cardiomegaly. No pericardial effusion. Lymph nodes: Unremarkable. No enlarged lymph nodes. Bones/joints: Unremarkable. No acute fracture. Soft tissues: Unremarkable. CT/CT angio chest PE protcl [id number] IMPRESSION: 1. Left lower lobe lobar pneumonia with additional pneumonia involving the lingula 2. Diffuse bronchial wall thickening indicating reactive airway disease 3. Stable 1.4 cm right upper lobe lung nodule
--- NOTE | 2025-04-08 11:37 | PC.PHAR ---
Patient states he has his Granddaughter set up his medications. Patient states he does get forgetful and forgets his evening meds,but mostly takes all his morning meds. Few medications were filled in October and November and patient isn't sure if he is still taking. So I left them on his edlist , and put unknown on his last taken .
[2025-04-08 11:46] LABS: Glucose Point of Care 115 mg/dL (70-110)
[2025-04-08 11:56] LABS: C Reactive Protein 272.4 mg/L (0.0-4.9)
[2025-04-08] MEDS: methylPREDNISolone sod succ 125 mg/2 mL INJ IVP (11:57)
[2025-04-08 12:04] LABS: Procalcitonin 0.52 ng/mL (0-0.5)
[2025-04-08] MEDS: iohexol 350 mg/mL 500 mL Btl (per mL) IV (13:32)
--- NOTE | 2025-04-08 13:56 | PM.PN ---
Subjective Subjective: Patient was seen this morning, currently alert oriented x 3, following all commands does report a cough, does report wheezing, he tells me that he had 5 sessions of radiation therapy for his lung cancer, he follows up on 01 May, Vitals/I&O/Wt Last Vital Signs Temp 98.0 F 04/08/25 11:47 Pulse 98 04/08/25 11:47 Resp 18 04/08/25 11:47 BP 133/76 04/08/25 11:47 Pulse Ox 95 04/08/25 11:47 O2 Del Method Room Air 04/08/25 11:47 04/07/25 04/08/25 04/08/25 22:59 06:59 14:59 Intake Total 250 / 250 1535.833 / 1535.833 Balance 250 / 250 1535.833 / 1535.833 Weight last 48 hrs Weight 76.657 kg Weight 74.984 kg Weight 74.389 kg Physical Exam Const: COMMON NORMALS: no acute distress and patient oriented x3 Resp: COMMON NORMALS: normal respiratory effort, No retractions and No use of accessory muscles AUSCULTATION: crackles and wheezes Cardio: COMMON NORMALS: regular rate, regular rhythm, S1 normal heart sound present and S2 normal heart sound present RATE: regular rate RHYTHM: regular rhythm HEART SOUNDS: S1 normal heart sound present and S2 normal heart sound present GI: COMMON NORMALS: Normal to inspection, nondistended, normoactive bowel sounds present and non-tender Neuro: COMMON NORMALS: patient oriented x3 Psych: COMMON NORMALS: mental status grossly normal Data 04/08/25 02:34 04/08/25 02:34 A&P Assessment and plan (1) Left lower lobe pneumonia: - CT angiogram of the chest -CRP to 72.4, Pro-George 0.52 - Solu-Medrol 125 mg once - Rocephin - Azithromycin - Sputum cultures (2) Generalized weakness: PT OT (3) Adenocarcinoma of right lung: - Status post 5 sessions of radiation therapy (4) Dementia: Alert oriented x 3, following all commands (5) Type 2 diabetes mellitus: Continue insulin sliding scale (6) BPH (benign prostatic hyperplasia): Continue with finasteride and tamsulosin. Monitor for urine retention if not voiding (7) Hyponatremia: Is on chronic salt tabs Plan Plan for today IV antibiotics, Rocephin, Zithromycin, IV steroids, CT angiogram of the chest, operative bed into a chair, sputum culture PDMP PDMP Reviewed: Not Reviewed Attestations Medical Necessity Statement*: Patient requires hospitalization for pneumonia Diagnoses Left lower lobe pneumonia J18.9 Generalized weakness R53.1 Adenocarcinoma of right lung C34.91 Dementia F03.90 Type 2 diabetes mellitus without complication, without long-term current use of insulin E11.9 Diabetes mellitus ocean transportation intermediary insulin use: without ocean transportation intermediary use Diabetes mellitus complication status: without complication Benign prostatic hyperplasia without lower urinary tract symptoms N40.0 Lower urinary tract symptom presence: symptoms absent Hyponatremia E87.1
[2025-04-08 16:36] LABS: Glucose Point of Care 198 mg/dL (70-110)
[2025-04-08] MEDS: insulin lispro 100 unit/1 mL SUBCUT ×2 (17:42→21:10)
[2025-04-08] MEDS: tamsulosin 0.4 mg Capsule PO (20:21)
[2025-04-08] MEDS: enoxaparin 40 mg/0.4 mL Syringe SUBCUT (20:21)
[2025-04-08] MEDS: mirtazapine 30 mg Tablet 45 MG PO (20:21)
[2025-04-08 20:56] LABS: Glucose Point of Care 259 mg/dL (70-110)
[2025-04-08] MEDS: albuterol 2.5 mg/3 mL Neb INHALATION (20:59)
[2025-04-08] MEDS: AZITHROMYCIN ADD-Vantage 500 MG in 0.9% NaCl ADD-Vantage 250 ML 250 MG IV (21:09)
[2025-04-08] MEDS: sodium chlor 0.9% + KCl 20 mEq 20 MEQ/1,000 ML BAG 50 MEQ IV (21:10)
[2025-04-09] VITALS (7 sets, daily range): BP systolic 100–128; BP diastolic 57–70; PULSE 69–90; RESP 15–18; TEMP 36.5–37.1; O2SAT 91–96
[2025-04-09 04:00] LABS: Basophils % 0.1 %; Hematocrit 33.2 % (37-53); Lymphocytes # 0.4 10^3/uL (0.8-4.8); Mean Corpuscular HGB Conc 33.4 g/dL (30-55); Mean Corpuscular Hemoglobin 29.9 pg (27-33); Mean Corpuscular Volume 89.5 fl (82-101); Mean Platelet Volume 10.1 fL (7.4-10.4); Monocytes # 0.3 10^3/uL (0.2-0.9); Monocytes % 5.1 %; Neutrophils # 5.91 10^3/uL (1.8-7.7); Neutrophils % 88.2 %; Nucleated Red Blood Cells % 0 %; Platelet Count 141 10^3/cmm (157-399); Red Blood Count 3.71 10^6/uL (3.85-5.65); Red Cell Distribution Width 13.3 % (12.1-15.1)
[2025-04-09 04:24] LABS: Anion Gap 14.1 (5-19); Blood Urea Nitrogen 14 mg/dL (8-23); C Reactive Protein 223.2 mg/L (0.0-4.9); Calcium 8.2 mg/dL (8.5-10.5); Carbon Dioxide 23 mmol/L (22-29); Chloride 107 mmol/L (98-107); Creatinine Clr Calc Pharmacy 65.8308; Glucose 183 mg/dL (65-115); Osmolality Calculated 295 mOsm/kg (285-295); Potassium 4.1 mmol/L (3.5-5.1); Sodium 140 mmol/L (136-145)
[2025-04-09 04:29] LABS: NT Pro B Type Natriuretic Pept 2391 pg/mL (0-450)
[2025-04-09] MEDS: ondansetron 2 mg/ML SDV 2 mL 4 MG IVP (06:39)
[2025-04-09 08:42] LABS: Glucose Point of Care 160 mg/dL (70-110)
[2025-04-09] MEDS: pantoprazole DR 40 mg Tablet PO ×2 (08:55→17:13)
[2025-04-09] MEDS: finasteride 5 mg Tablet PO (08:55)
[2025-04-09] MEDS: sodium chloride 1 gm Tablet PO (08:56)
[2025-04-09] MEDS: atorvastatin 40 mg Tablet 20 MG PO (08:56)
[2025-04-09] MEDS: guaiFENesin 600 mg Tablet 1200 MG PO ×2 (08:56→17:13)
[2025-04-09] MEDS: metoprolol tartrate 50 mg Tablet PO ×2 (08:56→17:13)
[2025-04-09] MEDS: lisinopril 10 mg Tablet PO (08:58)
[2025-04-09] MEDS: cefTRIAXone 1,000 mg SDV 1000 MG IVP ×2 (08:59→20:17)
[2025-04-09] MEDS: insulin lispro 100 unit/1 mL SUBCUT ×3 (09:00→21:07)
--- NOTE | 2025-04-09 09:45 | PC.SOCIAL ---
IMM Update Pg. 2 of IMM updated and copy provided.
--- NOTE | 2025-04-09 09:51 | PC.CHAP ---
Pastoral Care Encounter/Spiritual Assessment Type of Contact [] Declined brine maker visit [] Patient/Family/Request visit [] Outpatient visit [] Follow-up visit [] Physician referral [] Code/Alert [x] Routine visit [] Staff referral [] Actively dying [] Patient sleeping [] Family support [] [] Out of room [] Palliative care [] [] Receiving care in room [] Pre-surgical visit [] Trauma [] Long length of stay [] ICU visit [] Other: Relational/Emotional Strength [] Patient feels connected with others/family/visitors/staff [] Distress [] Loneliness/isolation [] Abandonment Spirituality of Patient [x] Person of Tori [] Attends Jain of their Tori [x] Believes in Prayer [] Reads Bible or Nondenominational materials [] There are Spiritual issues to be addressed Flap Curer Interventions [x] Prayer [x] Active listening [] Non-anxious presence [] Spiritual/emotional support [] Crisis/trauma care [] Spiritual counseling [] Bereavement support [] Provided bereavement packet [x] Provided Bible/devotional materials [] Provided toy/stuffed animal, coloring book to patient or family member [] Provided Communion [] Anointing/[place] [] Salvation x] Completed spiritual assessment [] Other: Impact on Illness or Injury [] Angry [] Fearful [] Anxious [] Often cries [] Exhaustion [] Unable to work [] Unable to attend tenriism [] Unable to walk/stand [] Unable to read [] Unable to drive [] Unable to eat/drink [] Unable to sleep [] Unable to be with family [] Patient intubated [] Other: Summary Time spent with patient 5 min
[2025-04-09 11:15] LABS: Glucose Point of Care 185 mg/dL (70-110)
--- NOTE | 2025-04-09 14:23 | PC.NURSE ---
Patients daughter is taking wallet and check book home with her today....04/09/2025
--- NOTE | 2025-04-09 15:13 | P.PN_ITS ---
Subjective 2 Subjective: Patient was seen this morning, denies any fevers, no chills, no cough continues to complain of wheezing and cough Vitals/I&O/Wt Last Vital Signs Temp 98.0 F 04/09/25 11:53 Pulse 73 04/09/25 11:53 Resp 15 04/09/25 11:53 BP 111/59 04/09/25 11:53 Pulse Ox 95 04/09/25 11:53 O2 Del Method Room Air 04/09/25 11:53 04/09/25 04/09/25 04/09/25 06:59 14:59 22:59 Intake Total 60 / 2729.166 360 / 360 Output Total 400 / 800 150 / 150 Balance -340 / 1929.166 210 / 210 Weight last 48 hrs Weight 76.657 kg Weight 76.657 kg Weight 74.984 kg Weight 74.389 kg Physical Exam 2 Const: COMMON NORMALS: no acute distress and patient oriented x3 Resp: COMMON NORMALS: normal respiratory effort, No retractions, No use of accessory muscles and clear to auscultation bilaterally AUSCULTATION: clear to auscultation bilaterally Cardio: COMMON NORMALS: regular rate, regular rhythm, S1 normal heart sound present and S2 normal heart sound present RATE: regular rate RHYTHM: r egular rhythm HEART SOUNDS: S1 normal heart sound present and S2 normal heart sound present GI: COMMON NORMALS: Normal to inspection, nondistended, normoactive bowel sounds present and non-tender Extremity: COMMON NORMALS: no pedal edema Neuro: COMMON NORMALS: patient oriented x3 Psych: COMMON NORMALS: mental status grossly normal Data 04/09/25 03:45 04/09/25 03:45 Micro: Microbiology 04/08/25 16:12 Gram Stain - Final Sputum - Expectorated Sputum A&P Assessment and plan (1) Left lower lobe pneumonia: - CT angiogram of the chest CT/CT angio chest PE protcl [id number] IMPRESSION: 1. Left lower lobe lobar pneumonia with additional pneumonia involving the lingula 2. Diffuse bronchial wall thickening indicating reactive airway disease 3. Stable 1.4 cm right upper lobe lung nodule -CRP to 72.4, Pro-George 0.52 - Solu-Medrol 40 IV every 12 hours - Rocephin - Azithromycin - Sputum cultures (2) Generalized weakness: PT OT (3) Adenocarcinoma of right lung: - Status post 5 sessions of radiation therapy (4) Dementia: Alert oriented x 3, following all commands (5) Type 2 diabetes mellitus: Continue insulin sliding scale (6) BPH (benign prostatic hyperplasia): Continue with finasteride and tamsulosin. Monitor for urine retention if not voiding (7) Hyponatremia: Is on chronic salt tabs Plan Plan for today IV antibiotics, Rocephin, Zithromycin, IV steroids, continue PT OT PDMP PDMP Reviewed: Not Reviewed Attestations 2 Medical Necessity Statement*: Patient requires hospitalization for acute hypoxic respiratory failure secondary to pneumonia Diagnoses Left lower lobe pneumonia J18.9 Generalized weakness R53.1 Adenocarcinoma of right lung C34.91 Dementia F03.90 Type 2 diabetes mellitus without complication, without long-term current use of insulin E11.9 Diabetes mellitus prison insulin use: without dedicated 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
[2025-04-09] MEDS: methylPREDNISolone sod succ 40 mg/mL INJ IVP (15:56)
[2025-04-09 16:07] LABS: Glucose Point of Care 91 mg/dL (70-110)
[2025-04-09] MEDS: tamsulosin 0.4 mg Capsule PO (20:17)
[2025-04-09] MEDS: enoxaparin 40 mg/0.4 mL Syringe SUBCUT (20:17)
[2025-04-09] MEDS: mirtazapine 30 mg Tablet 45 MG PO (20:17)
[2025-04-09 20:47] LABS: Glucose Point of Care 300 mg/dL (70-110)
[2025-04-09] MEDS: HYDROcodone-acetaminophen 5-325 mg Tablet 1 TAB PO (21:07)
[2025-04-09] MEDS: AZITHROMYCIN ADD-Vantage 500 MG in 0.9% NaCl ADD-Vantage 250 ML 250 MG IV (22:42)
[2025-04-10 00:05] VITALS: BP 129/77; PULSE 76; RESP 19; TEMP 36.7; O2SAT 94
[2025-04-10] MEDS: methylPREDNISolone sod succ 40 mg/mL INJ IVP (03:12)
[2025-04-10 04:19] VITALS: BP 126/62; PULSE 68; RESP 16; TEMP 36.6; O2SAT 95
[2025-04-10 06:07] LABS: Basophils % 0.1 %; Hematocrit 37.1 % (37-53); Lymphocytes # 0.8 10^3/uL (0.8-4.8); Lymphocytes % 9.8 %; Mean Corpuscular HGB Conc 32.3 g/dL (30-55); Mean Corpuscular Hemoglobin 29.6 pg (27-33); Mean Corpuscular Volume 91.4 fl (82-101); Mean Platelet Volume 9.9 fL (7.4-10.4); Monocytes # 0.3 10^3/uL (0.2-0.9); Monocytes % 4.1 %; Neutrophils # 6.97 10^3/uL (1.8-7.7); Neutrophils % 85.8 %; Nucleated Red Blood Cells % 0 %; Platelet Count 178 10^3/cmm (157-399); Red Blood Count 4.06 10^6/uL (3.85-5.65); Red Cell Distribution Width 13.4 % (12.1-15.1); White Blood Count 8.13 10^3/uL (3.29-11.43)
[2025-04-10 06:21] LABS: Glucose Point of Care 152 mg/dL (70-110)
[2025-04-10 06:26] LABS: C Reactive Protein 88.3 mg/L (0.0-4.9)
[2025-04-10 06:36] LABS: Anion Gap 15.9 (5-19); Blood Urea Nitrogen 15 mg/dL (8-23); Calcium 8.9 mg/dL (8.5-10.5); Carbon Dioxide 24 mmol/L (22-29); Chloride 106 mmol/L (98-107); Creatinine Clr Calc Pharmacy 65.8308; Glucose 124 mg/dL (65-115); NT Pro B Type Natriuretic Pept 2505 pg/mL (0-450); Osmolality Calculated 296 mOsm/kg (285-295); Potassium 3.9 mmol/L (3.5-5.1); Sodium 142 mmol/L (136-145)
[2025-04-10] MEDS: insulin lispro 100 unit/1 mL SUBCUT (07:19)
[2025-04-10] MEDS: cefTRIAXone 1,000 mg SDV 1000 MG IVP (07:20)
[2025-04-10] MEDS: guaiFENesin 600 mg Tablet 1200 MG PO (07:20)
[2025-04-10] MEDS: finasteride 5 mg Tablet PO (07:20)
[2025-04-10] MEDS: atorvastatin 40 mg Tablet 20 MG PO (07:20)
[2025-04-10] MEDS: pantoprazole DR 40 mg Tablet PO (07:21)
[2025-04-10] MEDS: lisinopril 10 mg Tablet PO (07:21)
[2025-04-10] MEDS: metoprolol tartrate 50 mg Tablet PO (07:21)
[2025-04-10] MEDS: sodium chloride 1 gm Tablet PO (07:21)
[2025-04-10 07:50] VITALS: BP 147/76; PULSE 80; RESP 15; TEMP 36.8; O2SAT 95
[2025-04-10] MEDS: FUROsemide 10 mg/mL SDV 2mL 20 MG IVP (08:54)
--- NOTE | 2025-04-10 09:36 | PM.DCS ---
Discharge Providers Date of Admission: 04/07/25 19:34 Date of Discharge: April 10, 2025 Attending Provider at Admission: Diego Fowler MD Attending Provider at Discharge: Kan Guthrie MD Primary Care Provider: KELLY Ann Diagnoses at Discharge Discharge Diagnosis (1) Left lower lobe pneumonia: Status: Acute (2) Generalized weakness: Status: Acute (3) Adenocarcinoma of right lung: Status: Acute (4) Dementia: Status: Acute (5) Type 2 diabetes mellitus: Status: Chronic Qualifiers: Diabetes mellitus complication status: without complication Diabetes mellitus terminal press operator insulin use: without [facility] use Qualified Code(s): E11.9 - Type 2 diabetes mellitus without complications (6) BPH (benign prostatic hyperplasia): Status: Chronic Qualifiers: Lower urinary tract symptom presence: symptoms absent Qualified Code(s): N40.0 - Benign prostatic hyperplasia without lower urinary tract symptoms (7) Hyponatremia: Status: Acute Reason for Visit Reason for Visit: WEAKNESS Hospital Course Hospital Course This is a 84-year-old male with past medical history of smoker, lung cancer, on radiation therapy, who presents [facility] for shortness of breath Patient was admitted to [facility] for left lower lobe pneumonia, received broad-spectrum antibiotic therapy, received IV steroids, overall clinically improved, will be discharged to custodial facility, discharged on prednisone burst, Levaquin Physical Exam Const: COMMON NORMALS: no acute distress and patient oriented x3 Resp: COMMON NORMALS: normal respiratory effort, No retractions, No use of accessory muscles and clear to auscultation bilaterally AUSCULTATION: clear to auscultation bilaterally Cardio: COMMON NORMALS: regular rate, regular rhythm, S1 normal heart sound present and S2 normal heart sound present RATE: regular rate RHYTHM: regular rhythm HEART SOUNDS: S1 normal heart sound present and S2 normal heart sound present GI: COMMON NORMALS: Normal to inspection, nondistended, normoactive bowel sounds present and non-tender Extremity: COMMON NORMALS: no pedal edema Neuro: COMMON NORMALS: patient oriented x3 Psych: COMMON NORMALS: mental status grossly normal Discharge Data Studies Completed and Pending Completed Studies During Hospitalization Category Date Time Status CT angio chest PE protcl [id number] Routine Cat Scan 04/08/25 11:[address] cervical spin wo con* [id number] Stat Cat Scan 04/07/25 17:[address] head wo con* [id number] Stat Cat Scan 04/07/25 17:09 Completed XR chest 1V portable [id number] Stat Exams 04/07/25 17:09 Completed XR hip LT 2-3V wo/w pel* [id number] Stat Exams 04/07/25 17:09 Completed Pending at discharge Category Date Time Status Basic Metabolic Panel AM LABS Lab 04/11/25 04:00 Ordered C Reactive Protein AM LABS Lab 04/11/25 04:00 Ordered Complete Blood Count w/Auto AM LABS Lab 04/11/25 04:00 Ordered NT Pro B Type Natriuretic Pept QAM Lab 04/11/25 06:00 Ordered Sputum Culture and Gram Stain Stat Lab 04/08/25 16:12 Results Radiology Impressions Cervical Spine CT 04/07/25 17:09 IMPRESSION: No acute findings. Chest X-Ray 04/07/25 17:09 IMPRESSION: Posterior left lower lobe opacity overlying the costophrenic angle, concerning for pneumonia versus a small effusion. Head CT 04/07/25 17:09 IMPRESSION: No acute intracranial abnormality. Hip/Pelvis X-Ray 04/07/25 17:09 IMPRESSION: No acute fracture or subluxation. Chest CTA 04/08/25 11:29 IMPRESSION: 1. Left lower lobe lobar pneumonia with additional pneumonia involving the lingula 2. Diffuse bronchial wall thickening indicating reactive airway disease 3. Stable 1.4 cm right upper lobe lung nodule Laboratory Results WBC 8.13 10^3/uL (3.29-11.43) 04/10/25 04:59 RBC 4.06 10^6/uL (3.85-5.65) 04/10/25 04:59 Hgb 12.00 g/dL (11.27-16.99) 04/10/25 04:59 Hct 37.1 % (37-53) 04/10/25 04:59 MCV 91.4 fl (82-101) 04/10/25 04:59 MCH 29.6 pg (27-33) 04/10/25 04:59 MCHC 32.3 g/dL (30-55) 04/10/25 04:59 RDW 13.4 % (12.1-15.1) 04/10/25 04:59 Plt Count 178 10^3/cmm (157-399) 04/10/25 04:59 MPV 9.9 fL (7.4-10.4) 04/10/25 04:59 Neut % (Auto) 85.8 % 04/10/25 04:59 Lymph % (Auto) 9.8 % 04/10/25 04:59 [place] % (Auto) 4.1 % 04/10/25 04:59 Eos % (Auto) 0.0 % 04/10/25 04:59 Baso % (Auto) 0.1 % 04/10/25 04:59 Neut # (Auto) 6.97 10^3/uL (1.8-7.7) 04/10/25 04:59 Lymph # (Auto) 0.8 10^3/uL (0.8-4.8) 04/10/25 04:59 [place] # (Auto) 0.3 10^3/uL (0.2-0.9) 04/10/25 04:59 Eos # (Auto) 0.0 10^3/uL (0.0-0.8) 04/10/25 04:59 Baso # (Auto) 0.0 10^3/uL (0.0-0.1) 04/10/25 04:59 Nucleated RBC % (auto) 0 % 04/10/25 04:59 Nucleated RBCs # 0.0 /100WBC 04/10/25 04:59 Sodium 142 mmol/L (136-145) 04/10/25 04:59 Potassium 3.9 mmol/L (3.5-5.1) 04/10/25 04:59 Chloride 106 mmol/L (98-107) 04/10/25 04:59 Carbon Dioxide 24 mmol/L (22-29) 04/10/25 04:59 Anion Gap 15.9 (5-19) 04/10/25 04:59 BUN 15 mg/dL (8-23) 04/10/25 04:59 Creatinine 0.7 mg/dL (0.7-1.2) 04/10/25 04:59 GFR Calculation Not Reportable 04/10/25 04:59 Glucose 124 mg/dL (65-115) H 04/10/25 04:59 POC Glucose 152 mg/dL (70-110) H 04/10/25 06:12 Calculated Osmolality 296 mOsm/kg (285-295) H 04/10/25 04:59 Calcium 8.9 mg/dL (8.5-10.5) 04/10/25 04:59 Phosphorus 1.8 mg/dL (2.5-4.5) L 04/07/25 17:57 Magnesium 1.6 mg/dL (1.7-2.3) L 04/07/25 17:57 Total Bilirubin 0.7 mg/dL (0.15-1.2) 04/07/25 17:57 AST 22 U/L (0-40) 04/07/25 17:57 ALT 12 U/L (0-41) 04/07/25 17:57 Alkaline Phosphatase 74 U/L (40-130) 04/07/25 17:57 Creatine Kinase 339 U/L (39-308) H* 04/07/25 17:57 Troponin T Baseline 62 ng/L (0-15) H 04/07/25 17:57 Troponin T 120 Minute 59.42 ng/L (0-15) H 04/07/25 19:53 Delta Troponin T -2.58 ABS# (0-10) L 04/07/25 19:53 Troponin T Hi Sens 6Hr 50.91 ng/L (0-15) H 04/07/25 00:05 Troponin T Hi Sens 6Hr Delta 11.09 ng/L (0-12) 04/07/25 00:05 C-Reactive Protein 88.3 mg/L (0.0-4.9) H 04/10/25 04:59 NT-Pro-B Natriuret Pep 2505 pg/mL (0-450) H 04/10/25 04:59 Total Protein 5.8 g/dL (6.6-8.7) L 04/07/25 17:57 Albumin 3.7 g/dL (3.5-5.2) 04/07/25 17:57 Globulin 2.1 g/dL (1.3-4.6) 04/07/25 17:57 Procalcitonin 0.52 ng/mL (0-0.5) H 04/08/25 02:34 TSH 1.62 uIU/mL (0.27-4.20) 04/07/25 17:57 Influenza A (PCR) Negative (Negative) 04/08/25 04:44 Influenza Type B (PCR) Negative (Negative) 04/08/25 04:44 RSV (PCR) Negative (Negative) 04/08/25 04:44 SARS-CoV-2 (PCR) Negative (Negative) 04/08/25 04:44 Vitals Last Vital Signs Temp 98.3 F 04/10/25 07:50 Pulse 80 04/10/25 07:50 Resp 15 04/10/25 07:50 BP 147/76 04/10/25 07:50 Pulse Ox 95 04/10/25 07:50 O2 Del Method Room Air 04/10/25 07:50 O2 Flow Rate 0 04/10/25 07:40 Discharge Plan Discharge Patient Disposition: Xfer SNF Condition: Stable Prescriptions: New levofloxacin 750 mg tablet 750 mg PO DAILY 5 Days Qty: 5 0RF prednisone 20 mg tablet 20 mg PO BID 5 Days Qty: 10 0RF albuterol sulfate [Ventolin HFA] 90 mcg/actuation HFA aerosol inhaler 1 inh inhalation Q6H PRN (Reason: shortness of breath or wheezing) Qty: 8.5 0RF fluticasone propion-salmeterol [Advair Diskus] 100-50 mcg/dose blister with device 1 inh inhalation DAILY Qty: 60 0RF insulin lispro [Humalog U-100 Insulin] 100 unit/mL Solution See Rx Instructions .ROUTE .COMPLEX Qty: 10 0RF Rx Instructions: Inject, subcut, 3 times daily, after meals, based on low-dose insulin sliding scale Continued (DME) Nebulizer with supplies See Rx Instructions .Route .MEDSUPPLY Qty: 1 0RF Rx Instructions: As directed (DME) lancets [FreeStyle Lancets] 28 gauge misc See Rx Instructions .ROUTE .MEDSUPPLY Qty: 100 0RF Rx Instructions: test once daily sodium chloride 1,000 mg tablet,soluble 1,000 mg PO DAILY 30 Days Qty: 30 0RF lisinopril 10 mg tablet See Rx Instructions .ROUTE .COMPLEX Qty: 90 1RF Dose Instruction: TAKE 1 TABLET DAILY Rx Instructions: TAKE 1 TABLET DAILY simvastatin 40 mg tablet See Rx Instructions .ROUTE .COMPLEX Qty: 90 1RF Dose Instruction: TAKE 1 TABLET DAILY Rx Instructions: TAKE 1 TABLET DAILY metoprolol tartrate 50 mg tablet See Rx Instructions .ROUTE .COMPLEX Qty: 180 1RF Dose Instruction: TAKE 1 TABLET TWICE A DAY Rx Instructions: TAKE 1 TABLET TWICE A DAY finasteride 5 mg tablet See Rx Instructions .ROUTE .COMPLEX Qty: 90 3RF Dose Instruction: TAKE 1 TABLET DAILY Rx Instructions: TAKE 1 TABLET DAILY metformin 500 mg tablet 500 mg PO BID tamsulosin 0.4 mg capsule 0.4 mg PO BEDTIME omeprazole 20 mg capsule,delayed release(DR/EC) 20 mg PO BID mirtazapine 45 mg tablet 45 mg PO BEDTIME Discharge Orders: Discharge Order (Routine); Ordered 04/10/25 Ordered By: Kan Guthrie Referrals: Ivette Flores MD [Hospitalist, Oncology] - 04/17/25 8:45 am Referral Note: Steph Adams FNP [Primary Care Provider, Family Practice] Irvin Small MD [Referring, Family Practice] Discharge Diet: Cardiac Discharge Activity: Resume usual activity Patient Instructions: Albuterol (By breathing), Prednisone (By mouth), Levofloxacin (By mouth) (Levaquin, Levaquin Leva-stacia), Fluticasone/Salmeterol (By breathing), Insulin Lispro (By injection), Opioid Safety Activity Restrictions/Additional Instructions: -Please monitor your blood sugars closely -Monitor your blood sugars 3 times daily as after meals -Please record your blood sugars, and a blood sugar log -For your NovoLog -Please inject blood sugar after meals based on sliding scale provided -Do not inject insulin if you do not eat as hypoglycemia kills -This is a NovoLog sliding scale -Insulin sliding ?fingerstick? Insulin ?141-180?0 units/sq 181-220?2 units/sq ?221-260?4 units/sq ?261-300 6 units/sq ?301-350?8 units/sq ?351-400 10 units/sq ?401-450?12 units/sq >450? 14units/sq -If your blood sugar is greater than 500 go to the emergency room -If your blood sugar is less than 60 or at anytime you feel lightheaded or dizzy or diaphoretic or have chest palpitations check your blood sugar, and eat a hard candy or drink orange juice and go immediately to the emergency room -Remember hypoglycemia kills, so if his blood sugar is less than 60 we have to increase it by taking in a sugary meal such as a hard candy or orange juice and go to the emergency room -If you have any questions please call us where here to help Discharge Attestations Time Spent in Discharge Care*: greater than 30 min Quality Metrics Clinical Quality Measures [ No reported AMI, CVA or VTE this stay] Coding Level of Care Code 75774 Total time (in minutes) for Discharge: 45 Diagnoses Left lower lobe pneumonia J18.9 Generalized weakness R53.1 Adenocarcinoma of right lung C34.91 Dementia F03.90 Type 2 diabetes mellitus without complication, without long-term current use of insulin E11.9 Diabetes mellitus complication status: without complication Diabetes mellitus [facility] insulin use: without terminal press operator use Benign prostatic hyperplasia without lower urinary tract symptoms N40.0 Lower urinary tract symptom presence: symptoms absent Hyponatremia E87.1
[2025-04-10 10:35] VITALS: BP 147/76; PULSE 80; RESP 15; TEMP 36.8; O2SAT 95
--- NOTE | 2025-04-10 10:38 | PC.NURSE ---
Report called to DE Castellon at [facility].
--- NOTE | 2025-04-10 10:40 | PC.NURSE ---
Mayra ([facility]) advised that pt going to [facility] this am
--- NOTE | 2025-04-10 11:36 | PC.NURSE ---
[facility] here to transport pt to SNF
[2025-04-10 12:10] LABS: Glucose Point of Care 184 mg/dL (70-110)
== END 2025-04-10 11:37 | disposition skilled nursing facility (03) | DRG 194 ==
LOC: ER 20:50 → MEDSURG 20:55
PROVIDERS: Admitting Provider Internal Medicine; Emergency Provider Registered Nurse; PCP Registered Nurse; Visit Provider Family Medicine
DX: J18.9 Pneumonia, unspecified organism (principal); C34.91 Malignant neoplasm of unspecified part of right bronchus or lung; E87.1 Hypo-osmolality and hyponatremia; F03.90 Unspecified dementia, unspecified severity, without behavioral disturbance, psychotic disturbance, mood disturbance, and anxiety; E11.9 Type 2 diabetes mellitus without complications; N40.0 Benign prostatic hyperplasia without lower urinary tract symptoms; Z87.891 Personal history of nicotine dependence; Z79.84 Long term (current) use of oral hypoglycemic drugs
CPT/HCPCS: 36415; 36416; 70450; 71045; 71275; 72125; 73502; 80048; 80053; 82550; 82962; 83735; 83880; 84100; 84145; 84443; 84484; 85025; 86140; 87070; 87205; 87637; 93005; 94640; 94664; 96365; 96367; 96372; 96375; 97116; 97161; 97166; 99285; J0456; J0696; J1650; J1815; J1938; J2270; J2405; J2919; J3480; J7050; J7613; J9999

== ENCOUNTER 2025-05-01 08:06 | Oncology outpatient (recurring) (ONCR) | payer MEDICARE, OTHER, SELFPAY ==
[2025-05-01 08:45] LABS: Basophils % 0.2 %; Eosinophils % 0.8 %; Hematocrit 37.5 % (37-53); Lymphocytes # 1.1 10^3/uL (0.8-4.8); Lymphocytes % 20.6 %; Mean Corpuscular HGB Conc 32.3 g/dL (30-55); Mean Corpuscular Hemoglobin 29.2 pg (27-33); Mean Corpuscular Volume 90.6 fl (82-101); Mean Platelet Volume 9.3 fL (7.4-10.4); Monocytes # 0.5 10^3/uL (0.2-0.9); Monocytes % 8.9 %; Neutrophils # 3.67 10^3/uL (1.8-7.7); Neutrophils % 69.1 %; Nucleated Red Blood Cells % 0 %; Platelet Count 142 10^3/cmm (157-399); Red Blood Count 4.14 10^6/uL (3.85-5.65); Red Cell Distribution Width 13.3 % (12.1-15.1)
[2025-05-01 09:07] LABS: Alanine Aminotransferase 15 U/L (0-41); Albumin Level 3.6 g/dL (3.5-5.2); Alkaline Phosphatase 72 U/L (40-130); Anion Gap 14.5 (5-19); Aspartate Amino Transferase 14 U/L (0-40); Blood Urea Nitrogen 12 mg/dL (8-23); Calcium 8.9 mg/dL (8.5-10.5); Carbon Dioxide 25 mmol/L (22-29); Chloride 103 mmol/L (98-107); Globulin 2.5 g/dL (1.3-4.6); Glucose 138 mg/dL (65-115); Osmolality Calculated 288 mOsm/kg (285-295); Potassium 4.5 mmol/L (3.5-5.1); Sodium 138 mmol/L (136-145); Total Bilirubin 0.2 mg/dL (0.15-1.2); Total Protein 6.1 g/dL (6.6-8.7)
== END 2025-05-07 23:59 | disposition home or self-care (01) ==
PROVIDERS: Internal Medicine Medical Oncology; Family Provider Family Medicine; PCP Registered Nurse; Visit Provider Radiology Radiation Oncology
DX: Z08 Encounter for follow-up examination after completed treatment for malignant neoplasm (principal); Z85.118 Personal history of other malignant neoplasm of bronchus and lung; R91.1 Solitary pulmonary nodule; Z92.3 Personal history of irradiation; J18.9 Pneumonia, unspecified organism
CPT/HCPCS: 80053; 85025; 99213

== ENCOUNTER 2025-06-25 11:30 | Oncology outpatient (recurring) (ONCR) | payer MEDICARE, OTHER, SELFPAY ==
--- NOTE | 2025-06-18 12:00 | CT_ITS ---
WS: [id number] CT CHEST, ABDOMEN AND PELVIS WITH CONTRAST HISTORY: non small cell cancer right lung TECHNIQUE: Contiguous 5 mm axial imaging performed through the chest, abdomen and pelvis with IV contrast, oral contrast has been provided. Coronal and sagittal reformats chest. Coronal and sagittal reformats through the abdomen and pelvis. All CT scans at [facility] use at least one of these dose optimization techniques: automated exposure control; mA and/or kV adjustment per patient size (includes targeted exams where dose is matched to clinical indication); or iterative reconstruction. CONTRAST: Omnipaque 350; 100 mL IV. DLP: 851.37 mGy.cm COMPARISON: 04/08/2025, 12/27/2024, 02/28/2017, PET/CT 03/02/[address]: PET/CT positive spiculated nodule in the RIGHT upper lobe measures 9 x 7 x 14 mm. Slightly decreased in size since 04/08/2025. There is mild pleural tagging extending from this nodule. Improved aeration otherwise. Mild persistent atelectasis and groundglass attenuation at the LEFT lung base. Pneumonia has resolved. Mild atherosclerosis thoracic aorta. No aneurysm. Normal size pulmonary artery. Heart is normal size. No pericardial or pleural effusions. No pathologic mediastinal or hilar lymph nodes. Tiny thyroid nodules. No chest wall abnormality. Abdomen CT: Normal liver and spleen. Normal gallbladder. Normal portal vein. No intrahepatic duct dilatation. RIGHT adrenal gland is normal. LEFT adrenal mass 1.3 cm. Mass has been present since 2017 and has changed slowly in attenuation. Negative by PET/CT imaging. There is fat within this nodule suggesting a myolipoma. Bilateral renal cysts. No obstruction or solid mass. Atherosclerosis aorta. Mesenteric arteries are enhancing. No GI tract obstruction. No colitis. Prior appendectomy. Mild diverticular disease in the sigmoid colon. No colitis. No ascites or adenopathy. Umbilical hernia contains fat only. Pelvic CT: Well-distended urinary bladder. Prostate gland is enlarged with central and peripheral calcifications encroaching into the bladder. Patent bilateral inguinal canals containing fat only. No destructive bone lesions. Lytic lesion within the L4 vertebral body has been present on prior studies and negative on PET/CT. CT/CT chest abdpel w/*[id number] IMPRESSION: 1. Slight decrease in size of spiculated RIGHT upper lobe neoplasm measuring 9 x 7 x 14 mm. Positive on prior PET/CT imaging. 2. Significant improvement in aeration in the LEFT lower lobe pneumonia compar ed to 04/08/2025. 3. No pathologically enlarged mediastinal or hilar lymph nodes. 4. No metastatic disease to the liver or adrenal glands. 5. LEFT adrenal myolipoma. 6. Prior appendectomy. 7. Fat-containing umbilical and bilateral inguinal hernias. 8. Moderate atherosclerosis aorta.
[2025-06-18] MEDS: iohexol 350 mg/mL 500 mL Btl (per mL) PO (12:17)
[2025-06-18] MEDS: iohexol 350 mg/mL 500 mL Btl (per mL) IV (12:19)
[2025-06-25 11:50] LABS: Hematocrit 38.0 % (37-53); Hemoglobin 12.70 g/dL (11.27-16.99); Mean Corpuscular HGB Conc 33.4 g/dL (30-55); Mean Corpuscular Hemoglobin 29.6 pg (27-33); Mean Corpuscular Volume 88.6 fl (82-101); Nucleated Red Blood Cells % 0 %; Platelet Count 161 10^3/cmm (157-399); Red Blood Count 4.29 10^6/uL (3.85-5.65); White Blood Count 7.12 10^3/uL (3.29-11.43)
[2025-06-25 12:07] LABS: Alanine Aminotransferase 13 U/L (0-41); Albumin Level 4.1 g/dL (3.5-5.2); Alkaline Phosphatase 70 U/L (40-130); Anion Gap 14.7 (5-19); Aspartate Amino Transferase 13 U/L (0-40); Blood Urea Nitrogen 14 mg/dL (8-23); Calcium 9.4 mg/dL (8.5-10.5); Carbon Dioxide 24 mmol/L (22-29); Chloride 103 mmol/L (98-107); Globulin 2.5 g/dL (1.3-4.6); Glucose 101 mg/dL (65-115); Osmolality Calculated 285 mOsm/kg (285-295); Potassium 4.7 mmol/L (3.5-5.1); Sodium 137 mmol/L (136-145); Total Protein 6.6 g/dL (6.6-8.7)
== END 2025-07-08 23:59 | disposition home or self-care (01) ==
PROVIDERS: Internal Medicine; PCP Registered Nurse; Visit Provider Radiology Radiation Oncology
DX: R91.1 Solitary pulmonary nodule; J92.9 Pleural plaque without asbestos; J18.9 Pneumonia, unspecified organism; Z92.3 Personal history of irradiation; Z87.891 Personal history of nicotine dependence; Z53.9 Procedure and treatment not carried out, unspecified reason
CPT/HCPCS: 36415; 71260; 74177; 80053; 83615; 85025; 99214

== ENCOUNTER 2025-07-23 09:53 | Oncology outpatient (recurring) (ONCR) | payer MEDICARE, OTHER, SELFPAY ==
--- NOTE | 2025-07-23 10:27 | ONCRAD EPV_ITS ---
Radiation Oncology Established Patient Visit Patient: Maldonado Madrigal [id number] : 1940> Age: 84> Sex: Male> Dictated by: Yan Bruner Date of Service: 07/23/2025 Referring Physician(s) : Diagnosis: C34.11 - Malignant neoplasm of upper lobe, right bronchus or lung, Diagnosed 02/13/2025 (Active) Radiotherapy to Date: Course: rul, Treatment Site: RUL SBRT, Ref. ID: [id number], Energy: 6X, Dose/Fx (cGy): 1,000, #Fx: 5 / 5, Dose Correction (cGy): 0, Total Dose Delivered (cGy): 5,000, Start Date: 03/19/2025, End Date: 03/29/2025, Elapsed Days: 10 Current History: This is a pleasant 84-year-old male seen 4 months from SBRT to the RUL. CT on 06/18/2025 showed right upper lobe not mass measuring 0.9 x 0.7 x 1.4 cm slightly decreased since 04/08/2025. 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 Current Medications: albuterol sulfate 90 mcg/actuation (Ventolin HFA) 1 inh inhalation Q6H PRN finasteride TAKE 1 TABLET DAILY fluticasone propion-salmeterol 100-50 mcg/dose (Advair Diskus) 1 inh inhalation DAILY insulin lispro (Humalog U-100 Insulin) Inject, subcut, 3 times daily, after meals, based on low-dose insulin sliding scale lancets (FreeStyle Lancets) test once daily lisinopril TAKE 1 TABLET DAILY metformin 500 mg PO BID metoprolol tartrate TAKE 1 TABLET TWICE A DAY mirtazapine 45 mg PO BEDTIME [Nebulizer with supplies As directed] omeprazole 20 mg PO BID simvastatin TAKE 1 TABLET DAILY sodium chloride 1,000 mg PO DAILY 30 days tamsulosin 0.4 mg PO BEDTIME Allergies: sulfamethoxazole (From Bactrim) Allergy (Verified 06/25/25 12:09) swelling trimethoprim (From Bactrim) Allergy (Verified 06/25/25 12:09) swelling Current Complaints / Review of Systems: . As above Vital Signs: Performed on 07/23/2025 10:12 AM BMI - 27.084 kg/m2 (high), Height - 66 in, Weight - 167.8 lbs, Temperature - 97 f, Pulse - 68 /min, Respiration - 16 /min, O2 Sat - 96 %, Pain - 0, Fatigue - 0 and BP - 129/ 71 mm(hg). Physical Exam: General: Alert and oriented x 3. No acute distress. HEENT: Normocephalic, atraumatic. Extraocular Movements Intact: Pupils Equal, Round, Reactive to Light and Accommodation: Sclerae anicteric. Oral cavity is clear without lesions, masses or ulcers. NECK: Supple without supraclavicular or jugular lymphadenopathy. LUNGS: Clear to auscultation bilaterally without rales, rhonchi or wheeze. No intercostal retraction noted. HEART: Regular rate and rhythm, normal S1 and S2 without murmur, gallop or rub. MUSCULOSKELETAL: No tenderness or percussion pain over the axial skeleton, scapulae or pelvis. ABDOMEN: Soft, nontender, nondistended without masses or organomegaly. Bowell sounds are present. EXTREMITIES: No peripheral edema is identified. Limited motor and sensory examination are grossly intact and symmetric bilaterally. NEUROLOGIC: Cranial nerves II ???XII are grossly intact. Normal sensation, strength 5/5 in all extremities, normal gait, no ataxia. Performance Status: KPS 80 Lab: None pending. Pathology: Primary, c34.11 - malignant neoplasm of upper lobe, right bronchus or lung, Diagnosed 02/13/2025 (active) . Imaging: See HPI Impression: ALFREDO CARL-ADENOCARCINOMA PLAN: RTC 12/24/2025 at 1330 or sooner if need be. Nursing facility notes signed. Signed by: 07/23/2025 10:26:06 AM <<Signature on File>> Time spent with patient/skilled nursing facilities professional: 20 minutes CPT Code: CPT Code:
== END 2025-08-07 23:59 | disposition home or self-care (01) ==
PROVIDERS: PCP Registered Nurse; Visit Provider Radiology Radiation Oncology
DX: R91.1 Solitary pulmonary nodule (principal); J92.9 Pleural plaque without asbestos; J18.9 Pneumonia, unspecified organism; Z92.3 Personal history of irradiation; Z87.891 Personal history of nicotine dependence; Z53.9 Procedure and treatment not carried out, unspecified reason; C34.11 Malignant neoplasm of upper lobe, right bronchus or lung; Z98.890 Other specified postprocedural states; K42.9 Umbilical hernia without obstruction or gangrene; K40.20 Bilateral inguinal hernia, without obstruction or gangrene, not specified as recurrent; I70.0 Atherosclerosis of aorta; J98.4 Other disorders of lung; J98.11 Atelectasis; E27.8 Other specified disorders of adrenal gland; N28.1 Cyst of kidney, acquired; K57.30 Diverticulosis of large intestine without perforation or abscess without bleeding; R93.7 Abnormal findings on diagnostic imaging of other parts of musculoskeletal system
CPT/HCPCS: 99024

== ENCOUNTER 2025-08-23 09:20 | Emergency (ER) | payer MEDICARE, OTHER, SELFPAY ==
[2025-08-23 09:24] VITALS: BP 147/70; PULSE 93; O2SAT 96
--- NOTE | 2025-08-23 09:31 | CT_ITS ---
WS: [id number] CT CERVICAL SPINE HISTORY: Trauma TECHNIQUE: Contiguous 2.0 mm axial imaging performed through the entire cervical spine. Sagittal and coronal reformats also performed. All CT scans at [facility] use at least one of these dose optimization techniques: automated exposure control; mA and/or kV adjustment per patient size (includes targeted exams where dose is matched to clinical indication); or iterative reconstruction. DLP: 1381.04 mGy.cm COMPARISON: 04/07/2025 Normal cervical alignment. Mild disc space narrowing and small marginal osteophytes from the vertebral body endplates. Facet joints are normally aligned. No subluxation or fracture. Craniocervical junction is normal. Lateral masses are normally aligned. The odontoid is intact. No central or foraminal stenosis. Very mild bilateral facet joint arthropathy. No acute appearing disc protrusions or hematoma. Lung apices are clear. Paraspinal soft tissues are negative. CT/CT cervical spin wo con* [id number] IMPRESSION: 1. No acute cervical spine fracture. 2. No high-grade central or foraminal stenosis.
--- NOTE | 2025-08-23 09:31 | ECG_ITS ---
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 Measurements Intervals Mcroberts Rate: 79 P: 36 CO: 143 QRS: 75 QRSD: 133 T: 86 QT: 388 QTc: 447 Interpretive Statements SINUS RHYTHM INTRAVENTRICULAR CONDUCTION DELAY [130+ ms QRS DURATION] Compared to ECG 04/07/2025 18:36:27 Intraventricular conduction delay now present Ventricular premature complex(es) no longer present Left bundle-branch block no longer present Electronically Signed On 08-25-2025 12:04:18 CDT by Wil Campbell M.D. [email or web address]
--- NOTE | 2025-08-23 09:31 | CT_ITS ---
WS: [id number] CT HEAD NONCONTRAST HISTORY: Closed head injury loss of consciousness TECHNIQUE: Contiguous axial imaging performed through the brain. Bone and soft tissue windows. Sagittal and coronal reformats reviewed. All CT scans at [facility] use at least one of these dose optimization techniques: automated exposure control; mA and/or kV adjustment per patient size (includes targeted exams where dose is matched to clinical indication); or iterative reconstruction. DLP: 1381.04 mGy.cm COMPARISON: 04/07/2025 No acute intracranial hemorrhage, midline shift or mass effect. Mild cerebral atrophy and small vessel disease. No acute or prior infarct. Ventricles: Normal size with no hydrocephalus. Paranasal sinuses: Complete opacification of the LEFT maxillary sinus with extension into the ethmoid air cells. New since 04/07/2025. Mastoid air cells: Well pneumatized. Calvarium and scalp: Skull is intact with no soft tissue edema or swelling. CT/CT head wo con* [id number] IMPRESSION: 1. No acute intracranial hemorrhage or edema. 2. Mild cerebral atrophy and small vessel changes. Stable. 3. New complete opacification of the LEFT maxillary sinus and LEFT ethmoid air cells from sinus disease. There is no overlying soft tissue edema or evidence for trauma to the LEFT face. 4. No skull fracture.
--- NOTE | 2025-08-23 09:31 | XR_ITS ---
WS: [id number] XR chest 1V portable [id number] REASON FOR EXAM: dyspnea/cough FINDINGS: The chest is unchanged compared to the previous examination of 04/07/2025. Mild tortuosity and ectasia with calcification of the ascending aorta, aortic arch, and descending thoracic aorta. Normal heart size. Calcified granulomas disease bilaterally. Chronic blunting of the left costophrenic angle with flattening of the hemidiaphragm. No acute pulmonary parenchymal or pleural abnormality is identified. XR/XR chest 1V portable [id number] IMPRESSION: Stable chest without acute abnormality.
--- NOTE | 2025-08-23 09:44 | ED_ITS ---
HPI - Fall 2 General: Chief Complaint: Fall Stated Complaint: fall - LOC Time Seen by Provider: 08/23/25 09:30 History of Present Illness: 84-year-old male presents emergency room via EMS from a independent living. He was getting out of bed got lightheaded and dizzy and fell he fell backwards hit the back of his head he does have a proximately 4 cm laceration on the right occiput. He has not had any vomiting since he has some mild neck discomfort. He presents in a c-collar. He denies any other injuries no chest arm hip or leg pain. No abdominal pain. No recent illnesses. Associated symptoms-after fall: Denies abdominal pain, chest pain or neck pain Related Data Home Medications ?Medication ?Instructions ?Recorded ?Confirmed metformin 500 mg tablet 500 mg PO BID 12/25/2406/25 mirtazapine 45 mg tablet 45 mg PO BEDTIME 12/25/24 omeprazole 20 mg capsule,delayed 20 mg PO BID 12/25/24 06/25/25 release tamsulosin 0.4 mg capsule 0.4 mg PO BEDTIME 12/25/24 0 06/25/25 Previous Rx's ?Medication ?Instructions ?Recorded lancets 28 gauge (FreeStyle #100 ea 01/17/21 Lancets) Nebulizer with supplies #1 ea 07/16/23 sodium chloride 1,000 mg soluble 1,000 mg PO DAILY 30 days #30 tabs 01/19/25 tablet lisinopril 10 mg tablet See Rx Instructions .Route 0 02/09/25 .COMPLEX #90 tabs metoprolol tartrate 50 mg tablet See Rx Instructions . Route 02/09/25 .COMPLEX #180 tabs simvastatin 40 mg tablet See Rx Instructions .Route 0 02/09/25 .COMPLEX #90 tabs finasteride 5 mg tablet See Rx Instructions .Route 0 03/19/25 .COMPLEX #90 tabs albuterol sulfate 90 mcg/actuation 1 inh inhalation Q6 H PRN shortness 04/10/25 aerosol inhaler (Ventolin HFA) of breath or wheezing # 8.5 grams fluticasone 100 mcg-salmeterol 50 1 inh inhalation TITA LY #60 ea 04/10/25 mcg/dose blistr powdr for inhalation (Advair Diskus) insulin lispro 100 unit/mL See Rx Instructions .Route 04/10/25 subcutaneous solution (Humalog .COMPLEX #10 mL U-100 Insulin) Allergies Allergy/AdvReac Type Severity Reaction Status Date / Time sulfamethoxazole (From Allergy swelling Verified 06/25/25 12:09 Bactrim) trimethoprim (From Bactrim) Allergy swelling Verified 06/25/25 12:09 Review of Systems 2 Const: Denies: fever(s) or chills Card: Denies: chest pain Resp: Denies: dyspnea GI: Denies: abdominal pain : Denies: dysuria, urinary frequency or urinary urgency Musc: Denies: neck pain or back pain Skin/Breast: Denies: rash PFSH ED 2 PFSH: Medical History Hyponatremia Adenocarcinoma of right lung BPH (benign prostatic hyperplasia) Type 2 diabetes mellitus Family History Other Cancer Social History Smoking and tobacco/nicotine status: never used tobacco/nicotine Quit status (tobacco/nicotine): has quit using Year quit tobacco: 1984 Former quit date comment: After pack per day for 20 years Alcohol intake: former Year of sobriety/quit date alcohol: None Former alcohol use details: Previous occasional beer Substance/Drug Use: never Additional social history: DNR as discussed with Diego Fowler MD on 04/07/2025 patient states he is when his 3 years ago. 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64 Do you think of yourself as: Straight/Heterosexual Current gender identity: Male Physical Exam 2 Const: COMMON NORMALS: no acute distress GENERAL APPEARANCE: cooperative and comfortable ORIENTATION/CONSCIOUSNESS: Yes awake, Yes oriented to person, Yes oriented to place and Yes oriented to time HENMT: COMMON NORMALS: normocephalic, atraumatic and hearing grossly normal bilaterally HEAD & SCALP: normocephalic and atraumatic Resp: COMMON NORMALS: normal respiratory effort, No retractions, No use of accessory muscles and clear to auscultation bilaterally AUSCULTATION: clear to auscultation bilaterally Cardio: COMMON NORMALS: regular rate, regular rhythm and No murmurs present (Cardio) RATE: regular rate RHYTHM: regular rhythm GI: COMMON NORMALS: Soft to palpation and No hepatosplenomegaly present A USCULTATION: Yes normoactive bowel sounds PALPATION: Yes Soft to palpation, No Tenderness to palpation present (GI), No Guarding due to palpation present (GI) and Yes No hepatosplenomegaly present Extremity: COMMON NORMALS: normal to inspection, capillary refill normal, no clubbing, cyanosis or edema, no calf tenderness and no pedal edema Neuro: SENSORIUM/ORIENTATION: Yes oriented to person, Yes oriented to place and Yes oriented to time Skin: COMMON NORMALS: no rashes or lesions noted GENERAL SKIN EXAM: no rashes or lesions noted Procedures Laceration Laceration 1: Site: scalp Side (If applicable): right Size (cm): 4 Description: linear Depth: simple, single layer Local Anesthetic: lidocaine 1% and with epi Amount of anesthesia used (mL): 4 Pre-repair: wound explored and irrigated extensively Skin layer closed with: other (Idalia) Course 2 Vital Signs: Vital signs: Vital Signs Pulse Rate 81 08/23/25 14:03 Blood Pressure 155/87 08/23/25 14:03 Pulse Oximetry 98 08/23/25 14:03 Oxygen Delivery Me thod Room Air 08/23/25 11:04 MDM - Fall Medical Decision Making CT head and neck unremarkable. Chest x-ray normal laboratory test do not show any acute clinically abnormalities. No signs of any intracranial injury no sign of cervical injury. Laceration of the scalp was closed with idalia. Wound care instructions given advised patient to have idalia removed in 7 to 10 days. Lab Data 08/23/25 09:40 08/23/25 09:40 Radiology Impressions Cervical Spine CT 08/23/25 09:31 IMPRESSION: 1. No acute cervical spine fracture. 2. No high-grade central or foraminal stenosis. Chest X-Ray 08/23/25 09:31 IMPRESSION: Stable chest without acute abnormality. Head CT 08/23/25 09:31 IMPRESSION: 1. No acute intracranial hemorrhage or edema. 2. Mild cerebral atrophy and small vessel changes. Stable. 3. New complete opacification of the LEFT maxillary sinus and LEFT ethmoid air cells from sinus disease. There is no overlying soft tissue edema or evidence for trauma to the LEFT face. 4. No skull fracture. Laboratory Results WBC 8.26 10^3/uL (3.29-11.43) 08/23/25 09:40 RBC 4.44 10^6/uL (3.85-5.65) 08/23/25 09:40 Hgb 13.00 g/dL (11.27-16.99) 08/23/25 09:40 Hct 39.8 % (37-53) 08/23/25 09:40 MCV 89.6 fl (82-101) 08/23/25 09:40 MCH 29.3 pg (27-33) 08/23/25 09:40 MCHC 32.7 g/dL (30-55) 08/23/25 09:40 RDW 12.1 % (12.1-15.1) 08/23/25 09:40 Plt Count 243 10^3/cmm (157-399) 08/23/25 09:40 MPV 9.2 fL (7.4-10.4) 08/23/25 09:40 Neut % (Auto) 82.1 % 08/23/25 09:40 Lymph % (Auto) 10.9 % 08/23/25 09:40 [place] % (Auto) 5.8 % 08/23/25 09:40 Eos % (Auto) 0.6 % 08/23/25 09:40 Baso % (Auto) 0.1 % 08/23/25 09:40 Neut # (Auto) 6.78 10^3/uL (1.8-7.7) 08/23/25 09:40 Lymph # (Auto) 0.9 10^3/uL (0.8-4.8) 08/23/25 09:40 [place] # (Auto) 0.5 10^3/uL (0.2-0.9) 08/23/25 09:40 Eos # (Auto) 0.1 10^3/uL (0.0-0.8) 08/23/25 09:40 Baso # (Auto) 0.0 10^3/uL (0.0-0.1) 08/23/25 09:40 Nucleated RBC % (auto) 0 % 08/23/25 09:40 Nucleated RBCs # 0.0 /100WBC 08/23/25 09:40 Sodium 139 mmol/L (136-145) 08/23/25 09:40 Potassium 4.2 mmol/L (3.5-5.1) 08/23/25 09:40 Chloride 101 mmol/L (98-107) 08/23/25 09:40 Carbon Dioxide 25 mmol/L (22-29) 08/23/25 09:40 Anion Gap 17.2 (5-19) 08/23/25 09:40 BUN 13 mg/dL (8-23) 08/23/25 09:40 Creatinine 0.8 mg/dL (0.7-1.2) 08/23/25 09:40 GFR Calculation Not Reportable 08/23/25 09:40 Glucose 192 mg/dL (65-115) H 08/23/25 09:40 Calculated Osmolality 293 mOsm/kg (285-295) 08/23/25 09:40 Calcium 9.5 mg/dL (8.5-10.5) 08/23/25 09:40 Total Bilirubin 0.2 mg/dL (0.15-1.2) 08/23/25 09:40 AST 11 U/L (0-40) 08/23/25 09:40 ALT 11 U/L (0-41) 08/23/25 09:40 Alkaline Phosphatase 84 U/L (40-130) 08/23/25 09:40 Total Protein 6.9 g/dL (6.6-8.7) 08/23/25 09:40 Albumin 3.6 g/dL (3.5-5.2) 08/23/25 09:40 Globulin 3.3 g/dL (1.3-4.6) 08/23/25 09:40 Urine Color Yellow (Yellow) 08/23/25 09:51 Urine Appearance Clear (CLEAR) 08/23/25 09:51 Urine pH 6.5 (5-7) 08/23/25 09:51 Ur Specific [place] 1.005 (1.005-1.030) 08/23/25 09:51 Urine Protein Negative (Negative) 08/23/25 09:51 Urine Glucose (UA) Negative (Normal) 08/23/25 09:51 Urine Ketones Negative (Negative) 08/23/25 09:51 Urine Blood Negative (Negative) 08/23/25 09:51 Urine Nitrate Negative (Negative) 08/23/25 09:51 Urine Bilirubin Negative (Negative) 08/23/25 09:51 Urine Urobilinogen 0.2 mg/dL (Negative) 08/23/25 09:51 Ur Leukocyte Esterase Negative (Negative) 08/23/25 09:51 Urine RBC 0-2 /hpf (0-2) 08/23/25 09:51 Urine WBC 0-5 /hpf (0-5) 08/23/25 09:51 Ur Squamous Epith Cells 0-5 /hpf (0-5) 08/23/25 09:51 Amorphous Sediment Not Reportable 08/23/25 09:51 Urine Bacteria None seen /hpf (NONE) 08/23/25 09:51 Hyaline Casts 0-4 /lpf H 08/23/25 09:51 All radiology interpretation(s) finalized by discharge Discharge Plan Discharge Patient Disposition: Home Clinical Impression: Fall, Laceration of scalp Condition: Stable Prescriptions: No Action (DME) Nebulizer with supplies See Rx Instructions .Route .MEDSUPPLY Qty: 1 0RF Rx Instructions: As directed (DME) lancets [FreeStyle Lancets] 28 gauge misc See Rx Instructions .ROUTE .MEDSUPPLY Qty: 100 0RF Rx Instructions: test once daily sodium chloride 1,000 mg tablet,soluble 1,000 mg PO DAILY 30 Days Qty: 30 0RF lisinopril 10 mg tablet See Rx Instructions .ROUTE .COMPLEX Qty: 90 1RF Dose Instruction: TAKE 1 TABLET DAILY Rx Instructions: TAKE 1 TABLET DAILY simvastatin 40 mg tablet See Rx Instructions .ROUTE .COMPLEX Qty: 90 1RF Dose Instruction: TAKE 1 TABLET DAILY Rx Instructions: TAKE 1 TABLET DAILY metoprolol tartrate 50 mg tablet See Rx Instructions .ROUTE .COMPLEX Qty: 180 1RF Dose Instruction: TAKE 1 TABLET TWICE A DAY Rx Instructions: TAKE 1 TABLET TWICE A DAY finasteride 5 mg tablet See Rx Instructions .ROUTE .COMPLEX Qty: 90 3RF Dose Instruction: TAKE 1 TABLET DAILY Rx Instructions: TAKE 1 TABLET DAILY metformin 500 mg tablet 500 mg PO BID tamsulosin 0.4 mg capsule 0.4 mg PO BEDTIME omeprazole 20 mg capsule,delayed release(DR/EC) 20 mg PO BID mirtazapine 45 mg tablet 45 mg PO BEDTIME albuterol sulfate [Ventolin HFA] 90 mcg/actuation HFA aerosol inhaler 1 inh inhalation Q6H PRN (Reason: shortness of breath or wheezing) Qty: 8.5 0RF fluticasone propion-salmeterol [Advair Diskus] 100-50 mcg/dose blister with device 1 inh inhalation DAILY Qty: 60 0RF insulin lispro [Humalog U-100 Insulin] 100 unit/mL Solution See Rx Instructions .ROUTE .COMPLEX Qty: 10 0RF Rx Instructions: Inject, subcut, 3 times daily, after meals, based on low-dose insulin sliding scale Discharge Orders: Discharge ED (Routine); Ordered 08/23/25 Ordered By: Dwayne Calderon Referrals: Steph Adams, STRAIGHT RULING MACHINE OPERATOR [Primary Care Provider, Family Practice] Discharge Diet: Usual diet Discharge Activity: Increase activity as tolerated Patient Instructions: Opioid Safety, Pain Management, Patient Portal & Kevin Instructions Activity Restrictions/Additional Instructions: Thank you for choosing [facility] for your healthcare needs today. It is very important that you follow up as instructed or that you return to the Emergency Department should you have concerns or if your condition changes or worsens in any way. Emergency department visits are focused on emergent conditions, in some cases you may require further evaluation on an outpatient basis. You were seen in the emergency room after a fall CT of your head and your neck were unremarkable. Other lab work done today did not show any clinically significant abnormalities. Did have a laceration on your scalp which was closed with idaila that should be removed in 7 to 10 days. (Please note that included in your discharge packet is information concerning opioid safety and pain management. This information is given to all patients were discharged from the ER regardless of their discharge diagnosis or the medicines they usually take or are prescribed.) Print Language: [place] Coding Level of Care Code ED Cloth Booker for Leticia Myers
[2025-08-23 09:50] LABS: Hematocrit 39.8 % (37-53); Hemoglobin 13.00 g/dL (11.27-16.99); Mean Corpuscular HGB Conc 32.7 g/dL (30-55); Mean Corpuscular Hemoglobin 29.3 pg (27-33); Mean Corpuscular Volume 89.6 fl (82-101); Nucleated Red Blood Cells % 0 %; Platelet Count 243 10^3/cmm (157-399); Red Blood Count 4.44 10^6/uL (3.85-5.65); White Blood Count 8.26 10^3/uL (3.29-11.43)
--- OUTSIDE RECORDS SUMMARY | 2025-08-23 09:53 | XMS_ITS | Encounter Summary ---
Author Organization [facility] Address [address] [place] [address] Care Team Providers Care Pants Busheler Name Role Phone Non-Staff, Physician Primary Care Provider Unava ilable Encounter Details Date Type Department Care Team (Latest Contact Info) Description 04/21/1999 Outpatient Historical [facility] Irvin Small Jr., MD [address] [place] [id number] Esophageal reflux (Primary Dx); Dyspepsia and other specified disorders of function of stomach Social History Tobacco Use Types Packs/Day Years Used Date Smoking Tobacco: Never Assessed Sex and Gender Information Value Date Recorded Sex Assigned at Not on file 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
--- OUTSIDE RECORDS SUMMARY | 2025-08-23 09:53 | XMS_ITS | Encounter Summary ---
Author Organization [facility] Address [address] [facility] [place] [address] Care Team Providers Care Digital Photographic Printer Name Role Phone Non-Staff, Physician Primary Care Provider Unava ilable Encounter Details Date Type Department Care Team (Latest Contact Info) Description 04/03/2003 Outpatient Historical [facility] Family Medicine- [address] [place] [id number] Hector Flanagan DO NO ADDRESS ON FILE ACUTE BRONCHITIS (Primary Dx) Social History Tobacco Use Types Packs/Day Years Used Date Smoking Tobacco: Never Assessed Sex and Gender Information Value Date Recorded Sex Assigned at Not on file 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
--- OUTSIDE RECORDS SUMMARY | 2025-08-23 09:53 | XMS_ITS | Encounter Summary ---
Author Organization [facility] Address [address] [facility] [place] [address] Care Team Providers Care Radioactive Waste Disposal Dispatcher Name Role Phone Non-Staff, Physician Primary Care Provider Unava ilable Encounter Details Date Type Department Care Team (Latest Contact Info) Description 08/19/1999 Outpatient Historical [facility] Family Medicine- [address] [place] [phone] Hector Flanagan, DO NO ADDRESS ON FILE Need vaccination-viral disease (Primary Dx) Social History Tobacco Use Types Packs/Day Years Used Date Smoking Tobacco: Never Assessed Sex and Gender Information Value Date Recorded Sex Assigned at Not on file 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
--- OUTSIDE RECORDS SUMMARY | 2025-08-23 09:53 | XMS_ITS | Patient Health Record ---
Author Organization [facility] Address [address] [place] [address] Care Team Providers Care Snack Stewardess Name Role Phone Irvin Small Unavailable [phone] Reason For Referral No Information Medications Medication SIG (Take, Route, Frequency, Duration) Notes Start Date End Date Status Lisinopril 10 MG Tablet Take 1 tablet(s) by mouth daily Oral; Duration: 30 Lisinopril 10mg Tablet Take 1 tablet(s) by mouth daily #90 (Ninety) tablet(s) 09/13/2013 Active Tamsulosin HCl 0.4 MG Capsule Take 1 capsule(s) by mouth daily Oral; Duration: 30 Tamsulosin HCl 0.4mg Capsules Take 1 capsule(s) by mouth daily #90 (Ninety) capsule(s) 09/13/2013 Active Nitroglycerin 0.4 MG Tablet Sublingual Dissolve 1 tablet(s) under the tongue may repeat every 5 minutes. Maximum of 3 doses in 15 minutes Sublingual; Duration: 30 Nitroglycerin 0.4mg Tablets, Sublingual Dissolve 1 tablet(s) under the tongue may repeat every 5 minutes. Maximum of 3 doses in 15 minutes #100 (One Sultan) tablet(s) 12/20/2013 Active Aspirin 325 MG Tablet Take 1 tablet(s) b y mouth at noon daily. Oral; Duration: 30 Aspirin (ASA) 325mg Tablet Take 1 tablet(s) by mouth at noon daily. 02/15/2013 Active Metoprolol Tartrate 50 MG Tablet One tab po BID Oral; Duration: 60 Metoprolol 50mg Tablet One tab po BID #180 (One Sultan and Eighty) tablet(s) 09/13/2013 Active Simvastatin 40 MG Tablet Take 1 tablet(s) by mouth at bedtime Oral; Duration: 30 Simvastatin 40mg Tablet Take 1 tablet(s) by mouth at bedtime #90 (Ninety) tablet(s) 09/13/2013 Active Finasteride 5 MG Tablet Take 1 tablet(s) by mouth daily Oral; Duration: 30 Finasteride 5mg Tablet Take 1 tablet(s) by mouth daily #90 (Ninety) tablet(s) 09/13/2013 Active Glucophage 500 MG Tablet Take 1 tablet(s) by mouth bid Oral; Duration: 30 Glucophage (Metformin HCl) 500mg Tablet Take 1 tablet(s) by mouth bid #180 (One Sultan and Eighty) tablet(s) 09/13/2013 Active Social History Social History Additional Details Category Social Info Options Details zzMigrated Social History Migrated Social History Advance Directive: Current and Verified Supported by Advance Directive Signed on 08/19/11, withhold IV and tube nutrition, withhold surgery, allow antibiotics, withhold mechanical ventilator, allow radiation therapy, allow dialysis, allow chemotherapy, allow CPR Other Withhold Organ Donation: Patient refuses Organ Donation Accepted Portal User: User Name: [email or web address] Initial Password [email or web address] Highest Level of Education College level or above Problems Problem Type SNOMED Code ICD Code Onset Dates Problem Status W/U Status Risk Notes Problem 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 confirmed [id number]- Problem Hand pain (74753593) Hand pain (729.5) 2013 Active confirmed [id number]- Problem Peripheral neuropath y (570247291) Peripheral neuropathy (356.9) 2013 Active confirmed [id number]- Problem Diabetes mellitus type 2 (disorder) (41254067) Type 2 diabetes (250.00) 2009 Active confirmed [id number]- Problem Acute maxillary sinusitis (45064260) Acute maxillary sinusitis (461.0) 2012 Problem resolved confirmed [id number]- Problem Actinic keratosis (151030904) Actinic keratosis (702.0) 2011 Problem resolved confirmed [id number]- Problem Screening for malignant neoplasm of prostate (224172871) Screening for prostate cancer (V76.44) 2007 Problem resolved confirmed [id number]- Problem Low back pain (348465451) Low back pain (724.2) 2014 Problem resolved confirmed [id number]- Problem Umbilical hernia (388173198) Umbilical hernia (553.1) 2016 Problem resolved confirmed [id number]- Problem Vaccine-other combinations (V06.8) 2006 Problem resolved confirmed [id number]- Problem Hypercholesterolemia (86109054) Hypercholesterolemia (272.0) 2005 Problem resolved confirmed [id number]- Problem Shoulder pain (85145964) Shoulder pain (719.41) 2005 Problem resolved confirmed [id number]- Problem Onychomycosis caused by dermatophyte (677091954) Toe onychomycosis (110.1) 2017 Problem resolved confirmed [id number]- Problem 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 Problem resolved confirmed [id number]- Problem Atypical mole syndrome (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) Atypical mole (238.2) 2005 Problem resolved confirmed [id number]- Problem Pneumococcal pneumonia (851509904) Lobar pneumonia, organism unspecified (481) 2006 Problem resolved confirmed [id number]- Problem Muscle pain (56954602) Myalgias, unspecified (729.1) 2013 Problem resolved confirmed [id number]- Problem Benign prostatic hypertrophy without outflow obstruction (595053646) Hypertrophy (benign) prostate, without urinary obstruction (600.00) 2009 Problem resolved confirmed [id number]- Problem Precordial pain (99658533) Precordial chest pain (786.51) 2009 Problem resolved confirmed [id number]- Problem Needs influenza immunization (638338502) Vaccination against other viral diseases, Influenza (V04.81) 2007 Problem resolved confirmed [id number]- Problem Benign prostatic hypertrophy (250228850) BPH (600.00) 2016 Problem resolved confirmed [id number]- Problem Lymphadenopathy (87974626) Swollen glands (785.6) 2003 Problem resolved confirmed [id number]- Problem Pain in coccyx (finding) (75421930) Coccyx pain (724.79) 2005 Problem resolved confirmed [id number]- Problem Chronic diastolic heart failure (941668871) Diastolic heart failure, chronic (428.32) 2016 Problem resolved confirmed [id number]- Problem Acute sinusitis (74576758) Acute sinusitis (461.8) 2008 Problem resolved confirmed [id number]- Problem Pneumococcal pneumonia (283174769) Acute lobar pneumonia (481) 2008 Problem resolved confirmed [id number]- Problem Shoulder joint pain (216816075) Joint pain, shoulder region (719.41) 2008 Problem resolved confirmed [id number]- Problem Impacted cerumen (23164654) External cerumen impaction (380.4) 2012 Problem resolved confirmed [id number]- Problem Gastroesophageal reflux disease (326535233) GERD (530.81) 2009 Problem resolved confirmed [id number]- Problem Type II diabetes mellitus without complication (198095705) NIDDM (250.00) 2006 Problem resolved confirmed [id number]- Problem Neoplasm of uncertai n behavior of connective and other soft tissues (51076145) Unspecified skin lesion (239.2) 2009 Problem resolved confirmed [id number]- Problem Bacterial enteritis (04728278) Bacterial enteritis, unspecified (008.5) 2016 Problem resolved confirmed [id number]- Plan Of Treatment No Information Insurance Providers Payer Name Payer Address Payer Phone Subscriber Number Group Number Insured Name Patient Relationship to Insured Coverage Start Date Coverage End Date for Life Secondary to Medicare [address] [place] [address] [phone] [id number] Maldonado Rincon Self - patient is the insured Medical (General) History Surgical History Surgery Date(Month/Year) Hernia Repair: 1957; anal fistula;
--- OUTSIDE RECORDS SUMMARY | 2025-08-23 09:53 | XMS_ITS | Encounter Summary ---
Author Organization [facility] Address [address] [place] [address] Care Team Providers Care Shirt Ironer Name Role Phone Non-Staff, Physician Primary Care Provider Unava ilable Encounter Details Date Type Department Care Team (Latest Contact Info) Description 12/21/2001 Outpatient Historical [facility] Irvin Small Jr., MD [address] [place] [phone] ESOPHAGEAL REFLUX (Primary Dx); IMPACTED CERUMEN; ALLERGIC RHINITIS NEC; Hypertrophy of prostate Social History Tobacco Use Types Packs/Day Years Used Date Smoking Tobacco: Never Assessed Sex and Gender Information Value Date Recorded Sex Assigned at Not on file Legal Sex Male 2:37 AM DIRECTOR MICROBIOLOGY Gender Identity Not on file Sexual Orientation Not on file documented as of this encounter Plan of Treatment Not on file documented as of this encounter Visit Diagnoses Diagnosis Esophageal reflux- Primary Impacted cerumen Allergic rhinitis due to other allergen Hypertrophy of prostate Hypertrophy (benign) of prostate documented in this encounter Care Teams Shirt Ironer Relationship Specialty Start Date End Date Non-Staff, Physician NO ADDRESS ON FILE PCP - General 11/02/19 documented as of this encounter
--- OUTSIDE RECORDS SUMMARY | 2025-08-23 09:53 | XMS_ITS | Encounter Summary ---
Author Organization [facility] Address [address] [place] [facility] [place] [address] Care Team Providers Care Industrial Refrigeration Mechanic Name Role Phone Non-Staff, Physician Primary Care Provider Unava ilable Encounter Details Date Type Department Care Team (Latest Contact Info) Description 08/23/2002 Outpatient Historical [facility] Family Medicine- [address] [place] [phone] Veronica Mc MD NO ADDRESS ON FILE ACUTE BRONCHITIS (Primary Dx); HYPERTENSION NOS; CHRONIC AIRWAY OBSTRUCTION NEC (CMS/[facility]) Social History Tobacco Use Types Packs/Day Years Used Date Smoking Tobacco: Never Assessed Sex and Gender Information Value Date Recorded Sex Assigned at Not on file Legal Sex Male 2:37 AM DRYWALL TAPER Gender Identity Not on file Sexual Orientation Not on file documented as of this encounter Plan of Treatment Not on file documented as of this encounter Visit Diagnoses Diagnosis Acute bronchitis- Primary Unspecified essential hypertension Chronic airway obstruction, not elsewhere classified (CMS/HCC) Chronic airway obstruction, not elsewhere classified documented in this encounter Care Teams Industrial Refrigeration Mechanic Relationship Specialty Start Date End Date Non-Staff, Physician NO ADDRESS ON FILE PCP - General 11/02/19 documented as of this encounter
--- OUTSIDE RECORDS SUMMARY | 2025-08-23 09:53 | XMS_ITS | Encounter Summary ---
Author Organization [facility] Address [address] [facility] [place] [address] Care Team Providers Care Materials And Corrosion Engineer Name Role Phone Non-Staff, Physician Primary Care Provider Unava ilable Encounter Details Date Type Department Care Team (Latest Contact Info) Description 11/28/2004 Outpatient Historical [facility] Medicine- [address] [place] [phone] Veronica Mc MD NO ADDRESS ON FILE POLYDIPSIA (Primary Dx) Social History Tobacco Use Types Packs/Day Years Used Date Smoking Tobacco: Never Assessed Sex and Gender Information Value Date Recorded Sex Assigned at Not on file Legal Sex Male 2:37 AM BAND MAKER Gender Identity Not on file Sexual Orientation Not on file documented as of this encounter Plan of Treatment Not on file documented as of this encounter Procedures Procedure Name Priority Date/Time Associated Diagnosis Comments ALT Routine 11/28/2004 9:47 PM BAND MAKER BRAIN NATRIURETIC PEPTIDE, BNP OR PROBNP Routine 11/28/2004 9:47 PM BAND MAKER HEMOGLOBIN A1C Routine 11/28/2004 9:47 PM BAND MAKER LIPID PANEL Routine 11/28/2004 9:47 PM BAND MAKER BASIC METABOLIC PANEL Routine 11/28/2004 9:47 PM BAND MAKER documented in this encounter Results * (ABNORMAL) HEMOGLOBIN A1C (11/28/2004 9:47 PM BAND MAKER) HEMOGLOBIN A1C 6.5(H) 4.0 - 6.0 %A1C INTERFACE SYSTEM 11/28/2004 9:47 PM BAND MAKER us Veronica Mc MD CHEMISTRY ORDERABLES Final Result INTERFACE SYSTEM Refer to clinic/hospital department * (ABNORMAL) BRAIN NATRIURETIC PEPTIDE, BNP OR PROBNP (11/28/2004 9:47 PM BAND MAKER) BRAIN NATRIURETIC PEPTIDE 152(H) 0 - 125 pg/mL INTERFACE SYSTEM 11/28/2004 9:47 PM BAND MAKER us Veronica Mc MD CHEMISTRY ORDERABLES Final Result Performing Organization Address City/[facility] Co de Phone Number INTERFACE SYSTEM Refer to clinic/hospital department * ALT (11/28/2004 9:47 PM BAND MAKER) ALT 34 21 - 72 IU/L INTERFACE SYSTEM 11/28/2004 9:47 PM BAND MAKER us Veronica Mc MD CHEMISTRY ORDERABLES Final Result Performing Organization Address City/[facility] Co de Phone Number INTERFACE SYSTEM Refer to clinic/hospital department * LIPID PANEL (11/28/2004 9:47 PM BAND MAKER) CHOLESTEROL 140 75 - 200 mg/dL INTERFACE SYSTEM TRIGLYCERIDE 134 0 - 200 mg/dL INTERFACE SYSTEM CALCULATED TOTAL CHOLESTEROL TO HDL RATIO 3.50 3.43 - 4.97 INTERFACE SYSTEM HDL 40 40 - 60 mg/dL INTERFACE SYSTEM Comment: As of 01 the reference range for HDL has been changed from 35-60 to 40-60 in following the recommendations from the National Education Cholesterol Program NECP . LDL CALCULATED 73 0 - 130 mg/dL INTERFACE SYSTEM 11/28/2004 9:47 PM BAND MAKER us Veronica Mc MD CHEMISTRY ORDERABLES Final Result INTERFACE SYSTEM Refer to clinic/hospital department * BASIC METABOLIC PANEL (11/28/2004 9:47 PM BAND MAKER) GLUCOSE 100 70 - 110 mg/dL INTERFACE SYSTEM BUN 15 9 - 20 mg/dL INTERFACE SYSTEM CREATININE 0.9 0.7 - 1.5 mg/dL (inactive) INTERFACE SYSTEM SODIUM 142 136 - 145 mEq/L INTERFACE SYSTEM POTASSIUM 4.1 3.5 - 5.0 mEq/L INTERFACE SYSTEM CHLORIDE 106 95 - 110 mEq/L INTERFACE SYSTEM CO2 27 22 - 32 mmol/l INTERFACE SYSTEM ANION GAP 13 9 - 20 mEq/L INTERFACE SYSTEM OSMOLALITY, CALCULATED 293 275 - 295 mOsm/Kg INTERFACE SYSTEM CALCIUM 9.1 8.4 - 10.5 mg/dL INTERFACE SYSTEM 11/28/2004 9:47 PM BAND MAKER us Veronica Mc MD CHEMISTRY ORDERABLES Final Result INTERFACE SYSTEM Refer to clinic/hospital department documented in this encounter Visit Diagnoses Diagnosis Polydipsia- Primary documented in this encounter Care Teams Materials And Corrosion Engineer Relationship Specialty Start Date End Date Non-Staff, Physician NO ADDRESS ON FILE PCP - General 11/02/19 documented as of this encounter
--- OUTSIDE RECORDS SUMMARY | 2025-08-23 09:53 | XMS_ITS | Encounter Summary ---
Author Organization [facility] Address [address] [place] [address] Care Team Providers Care Shuffle Board Operator Name Role Phone Non-Staff, Physician Primary Care Provider Unava ilable Encounter Details Date Type Department Care Team (Late st Contact Info) Description 05/04/2003 Outpatient Historical [facility] Irvin Small Jr., MD [address] [place] [phone] Social History Tobacco Use Types Packs/Day Years Used Date Smoking Tobacco: Never Assessed Sex and Gender Information Value Date Recorded Sex Assigned at Not on file Legal Sex Male 2:[address] RAILWAY Gender Identity Not on file Sexual Orientation Not on file documented as of this encounter Plan of Treatment Not on file documented as of this encounter Visit Diagnoses Not on filedocumented in this encounter Care Teams Shuffle Board Operator Relationship Specialty Start Date End Date Non-Staff, Physician NO ADDRESS ON FILE PCP - General 11/02/19 documented as of this encounter
--- OUTSIDE RECORDS SUMMARY | 2025-08-23 09:53 | XMS_ITS | Encounter Summary ---
Author Organization [facility] Address [address] [place] [address] Care Team Providers Care Commissary Agent Name Role Phone Non-Staff, Physician Primary Care Provider Unava ilable Encounter Details Date Type Department Care Team (Latest Contact Info) Description 10/08/1999 Outpatient Historical [facility] Irvin Small Jr., MD [address] [place] [phone] Hyperplasia of prostate (Primary Dx); Esophageal reflux; Diaphragmatic hernia Social History Tobacco Use Types Packs/Day Years Used Date Smoking Tobacco: Never Assessed Sex and Gender Information Value Date Recorded Sex Assigned at Not on file Legal Sex Male 2:[address] Gender Identity Not on file Sexual Orientation Not on file documented as of this encounter Plan of Treatment Not on file documented as of this encounter Visit Diagnoses Diagnosis Hyperplasia of prostate- Primary Esophageal reflux Diaphragmatic hernia Diaphragmatic hernia without mention of obstruction or gangrene documented in this encounter Care Teams Commissary Agent Relationship Specialty Start Date End Date Non-Staff, Physician NO ADDRESS ON FILE PCP - General 11/02/19 documented as of this encounter
--- OUTSIDE RECORDS SUMMARY | 2025-08-23 09:53 | XMS_ITS | Encounter Summary ---
Author Organization [facility] Address [address] [place] [place] [address] Care Team Providers Care Corporate Account Executive Name Role Phone Non-Staff, Physician Primary Care Provider Unava ilable Encounter Details Date Type Department Care Team (Latest Contact Info) Description 09/14/2003 Outpatient Historical [facility] Family Medicine- [address] [place] [phone] Veronica Mc MD NO ADDRESS ON FILE VACCINE FOR DISEASE NEC (Primary Dx) Social History Tobacco Use Types Packs/Day Years Used Date Smoking Tobacco: Never Assessed Sex and Gender Information Value Date Recorded Sex Assigned at Not on file Legal Sex Male 2:37 AM DUST OPERATOR Gender Identity Not on file Sexual Orientation Not on file documented as of this encounter Plan of Treatment Not on file documented as of this encounter Visit Diagnoses Diagnosis Need for prophylactic vaccination and inoculation against other specified disease- Primary documented in this encounter Care Teams Corporate Account Executive Relationship Specialty Start Date End Date Non-Staff, Physician NO ADDRESS ON FILE PCP - General 11/02/19 documented as of this encounter
--- OUTSIDE RECORDS SUMMARY | 2025-08-23 09:53 | XMS_ITS | Clinical Summary ---
Author Organization [employer] Address [address] [facility] Attn: Epic Prelude ADT [place] [address] Care Team Providers Care Outboard Motors Experimental Mechanic Name Role Phone Non-Staff, Physician Primary Care Provider Unava ilable Allergies No known active allergies Medications omeprazole (PriLOSEC) 20 mg Capsule, Delayed Release(E.C.) Take 20 mg by mouth daily. 11/02/2017 Active simvastatin (ZOCOR) 40 mg tablet Take 40 mg by mouth daily with supper. Active metoprolol tartrate (LOPRESSOR) 50 mg tablet Take 50 mg by mouth 2 times daily. Active lisinopriL (PRINIVIL) 10 mg tablet Take 10 mg by mouth daily. Active metFORMIN (GLUCOPHAGE) 500 mg tablet Take 500 mg by mouth 2 times daily with meals. Active finasteride (PROSCAR) 5 mg tablet Take 5 mg by mouth daily. Active aspirin (ECOTRIN EC) 81 mg Tablet, Delayed Release (E.C.) Take 81 mg by mouth daily. Active nitroglycerin (NITROSTAT) 0.4 mg Tablet, Sublingual Place 0.4 mg under tongue every 5 minutes as needed for Chest Pain. Active tamsulosin (FLOMAX) 0.4 mg capsule Take 0.4 mg by mouth daily. Active mirtazapine (REMERON) 30 mg tablet Take 30 mg by mouth daily at bedtime. 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 2 Constipation by outlet dysfunction 10/08/2022 GERD (gastroesophageal reflux disease) 1 Diabetes mellitus type II, c ontrolled, with no complications 06/15/2011 BBB (bundle branch block) 06/15/2011 BPH (benign prostatic hyperplasia) 06/15/2011 COPD (chronic obstructive pulmonary disease) 06/2011 Encounters Date Type Department Care Team Description 06/05/2025 External Device Data STL ABSTRACTION Provider, Abstract from Last 3 Months Immunizations Immunization Administration Dates Next Due (PNEUMOVAX 23)(50 YRS UP) PN EUMOCOCCAL POLYSACCHARIDE (PPV23) 0.5 ML, IM 09/14/2003 Influenza Seasonal Unspecifi ed Formulation IM 08/04/2007,08/12/2005,08/19/1999 Family History Medical History Relation Name Comments Colon Cancer Brother Breast Cancer Neg Hx Relation Name Status Comments Brother Social History Tobacco Use Types Packs/Day Years Used Date Smoking Tobacco: Former Cigarettes Q uit: 11/08/1981 Smokeless Tobacco: Never Alcohol Use Standard Drinks/Week Comments No 0 (1 standard drink = 0.6 oz pur e alcohol) Feeling Safe Answer Date Recorded Are you in a relationship wi th someone who hurts you emotionally and/or physically? No 12/24/2024 Sex and Gender Information Value Date Recorded Sex Assigned at Not on file Legal Sex Male 7:06 AM VIOLIN MAKER HAND Gender Identity Not on file Sexual Orientation Not on file Last Filed Vital Signs Vital Sign Reading Time Taken Comments Blood Pressure 126/57 02/13/2025 1:33 PM CDT Pulse 64 02/13/2025 1:33 PM CDT Temperature 36.6 C (97.9 F) 02/13/2025 1:33 PM CDT Respiratory Rate 18 02/13/2025 1:33 PM CDT Oxygen Saturation 97% 02/13/2025 1:33 PM CDT Inhaled Oxygen Concentration - - Weight 74.8 kg (165 lb) 02/13/2025 8:27 AM CDT Height 170.2 cm (5' 7 ) 02/13/2025 8:27 AM CDT Body Mass Index 25.84 02/13/2025 8:27 AM CDT Plan of Treatment Health Maintenance Due Date Last Done Comments DIABETES ANNUAL FOOT EXAM 1957 DIABETES ANNUAL RETINAL EXAM 1957 DIABETES MICROALBUMIN ANNUAL SCREEN 1957 LDL CHOLESTEROL ANNUAL 1957 DTAP/TDAP/TD VACCINES (1 - Tdap) 1958 ZOSTER VACCINE (1 of 2) 1989 PNEUMOCOCCAL VACCINE 50+ YEA RS (2 of 2 - PCV) 09/14/2004 09/14/2003 DIABETES HBA1C Q 6 MONTHS 05/29/2005 11/29/2004 RSV VACCINE (60+ or ) (1 - 1-dose 75+ series) 2014 INFLUENZA VACCINE (#1) 2025 , 07/02/2022, 07/28/2021, Additional history exists COVID-19 Vaccine ( - 2024-2 6 season) 2025 09/06/2023, 07/29/2022, 03/19/2022, Additional history exists Insurance MEDICARE PART A AND B [facility] Address: [address] [place] [address] Care Teams Outboard Motors Experimental Mechanic Relationship Specialty Start Date End Date Non-Staff, Physician NO ADDRESS ON FILE PCP - General 11/02/19
--- OUTSIDE RECORDS SUMMARY | 2025-08-23 09:53 | XMS_ITS | Clinical Summary ---
Author Organization [facility] Address [address] [place] [address] Care Team Providers Care Sheriff'S Officer Name Role Phone Non-Staff, Physician Primary Care Provider Unava ilable Allergies No known active allergies Medications aspirin (MARISA) 325 mg Oral tablet Take 1 Tab by mouth daily. Active simvastatin (ZOCOR) 80 mg Oral tablet Take 1 Tab by mouth Daily LATE. Active metoprolol tartrate (LOPRESSOR) 50 mg Oral tablet Take 25 mg by mouth 2 times daily. Active lisinopril (PRINIVIL) 10 mg Oral tablet Take 1 Tab by mouth daily. Active metFORMIN (GLUCOPHAGE) 500 mg Oral tablet Take 1 Tab by mouth 2 times daily with meals. Active finasteride (PROSCAR) 5 mg Oral tablet Take 1 Tab by mouth daily. Caution: When administering finasteride, women should not handle crushed or bro Active nitroglycerin (NITROQUICK) 0.[address] 0.4 mg under tongue every 5 minutes as needed. Active ALBUTEROL INHALATION Take by inhalation. Active silodosin (RAPAFLO) 8 mg Capsule Take 8 mg by mouth daily with breakfast. Active omeprazole (PriLOSEC) 20 mg Capsule, Delayed Release(E.C.) Take 20 mg by mouth daily. Active promethazine-d extromethorpha n (PHENERGAN-DM) 6.25-15 mg/5 mL syrupIndicatio ns:Cough Take 5 mL by mouth every 4 hours as needed for Cough. 120 mL 1 7 Active Active Problems Problem Noted Date Diagnosed Date Diabetes mellitus type II, c ontrolled, with no complications 06/15/2011 GERD (gastroesophageal reflux disease) 1 BPH (benign prostatic hyperplasia) 06/15/2011 BBB (bundle branch block) 06/15/2011 COPD (chronic obstructive pulmonary disease) 06/2011 Immunizations Immunization Administration Dates Next Due (PNEUMOVAX [...] drink = 0.6 oz pur e alcohol) Sex and Gender Information Value Date Recorded Sex Assigned at Not on file Legal Sex Male 2:37 AM FROG SHAKER Gender Identity Not on file Sexual Orientation Not on file Last Filed Vital Signs Vital Sign Reading Time Taken Comments Blood Pressure 122/66 11/02/2017 8:54 AM FROG SHAKER Pulse 88 11/02/2017 8:54 AM FROG SHAKER Temperature 38.3 C (100.9 F) 11/02/2017 8:54 AM FROG SHAKER Respiratory Rate 40 11/02/2017 8:54 AM FROG SHAKER Oxygen Saturation 94% 11/02/2017 8:54 AM FROG SHAKER Inhaled Oxygen Concentration - - Weight 89.2 kg (196 lb 9.6 oz) 11/02/2017 8:54 A M FROG SHAKER Height 170.2 cm (5' 7 ) 11/02/2017 8:54 AM FROG SHAKER Body Mass Index 30.79 11/02/2017 8:54 AM FROG SHAKER Plan of Treatment Health Maintenance Due Date Last Done Comments DIABETES ANNUAL FOOT EXAM 1957 DIABETES ANNUAL RETINAL EXAM 1957 DTAP/TDAP/TD VACCINES (1 - Tdap) 1958 ZOSTER VACCINE (1 of 2) 1989 DIABETES MICROALBUMIN ANNUAL SCREEN 12/07/2003 12/07/2002 PNEUMOCOCCAL VACCINE 50+ YEA RS (2 of 2 - PCV) 09/14/2004 09/14/2003 DIABETES HBA1C Q 6 MONTHS 05/28/2005 11/28/2004, LDL CHOLESTEROL ANNUAL 11/28/2005 5, 12/07/2002, 06/23/2002, Additional history exists RSV VACCINE (60+ or ) (1 - 1-dose 75+ series) 2014 INFLUENZA VACCINE (#1) 2025 7, 08/12/2005, 08/19/1999 Colorectal Cancer Screening Discontinued FIT/FOBT Q 1 year Discontinued 10/09/1998 COLORECTAL SCREENING Discontinued FIT-DNA Q 3 years Discontinued Flex Sig/CT Colonography Q 5 years Discontinued Procedures Procedure Name Priority Date/Time Associated Diagnosis Comments LIPID PANEL Routine 11/28/2004 9:47 PM FROG SHAKER HEMOGLOBIN A1C Routine 11/28/2004 9:47 PM FROG SHAKER from Last 3 Months or Most Recently Relevant to Health Maintenance Results * (ABNORMAL) HEMOGLOBIN A1C (11/28/2004 9:47 PM FROG SHAKER) HEMOGLOBIN A1C 6.5(H) 4.0 - 6.0 %A1C INTERFACE SYSTEM 11/28/2004 9:47 PM FROG SHAKER us Veronica Mc MD CHEMISTRY ORDERABLES Final Result Performing Organization Address City/[facility] Co de Phone Number INTERFACE SYSTEM Refer to clinic/hospital department * LIPID PANEL (11/28/2004 9:47 PM FROG SHAKER) CHOLESTEROL 140 75 - 200 mg/dL INTERFACE [...] 130 mg/dL INTERFACE SYSTEM 11/28/2004 9:47 PM FROG SHAKER us Veronica Mc MD CHEMISTRY ORDERABLES Final Result INTERFACE SYSTEM Refer to clinic/hospital department from Last 3 Months or Most Recently Relevant to Health Maintenance Insurance MEDICARE PART A AND B [employer] Care Teams Sheriff'S Officer Relationship Specialty Start Date End Date Non-Staff, Physician NO ADDRESS ON FILE PCP - General 11/02/19
--- OUTSIDE RECORDS SUMMARY | 2025-08-23 09:53 | XMS_ITS | Encounter Summary ---
Author Organization [employer] [facility] Address [address] [place] [address] Care Team Providers Care Asset Protection Officer Name Role Phone Non-Staff, Physician Primary Care Provider Unava ilable Encounter Details Date Type Department Care Team (Latest Contact Info) Description 05/04/2003 Outpatient Historical [facility] Irvin Small Jr., MD [address] [place] [phone] Hypertrophy of prostate (Primary Dx) Social History Tobacco Use Types Packs/Day Years Used Date Smoking Tobacco: Never Assessed Sex and Gender Information Value Date Recorded Sex Assigned at Not on file Legal Sex Male 2:37 AM MOLDING SANDER Gender Identity Not on file Sexual Orientation Not on file documented as of this encounter Plan of Treatment Not on file documented as of this encounter Visit Diagnoses Diagnosis Hypertrophy of prostate- Primary Hypertrophy (benign) of prostate documented in this encounter Care Teams Asset Protection Officer Relationship Specialty Start Date End Date Non-Staff, Physician NO ADDRESS ON FILE PCP - General 11/02/19 documented as of this encounter
--- OUTSIDE RECORDS SUMMARY | 2025-08-23 09:53 | XMS_ITS | Encounter Summary ---
Author Organization [email or web address] Address [address] [place] [address] Care Team Providers Care Story Editor Name Role Phone Non-Staff, Physician Primary Care Provider Unava ilable Encounter Details Date Type Department Care Team (Late st Contact Info) Description 12/07/2002 Outpatient Historical [facility] Irvin Small Jr., MD [address] [place] [phone] Social History Tobacco Use Types Packs/Day Years Used Date Smoking Tobacco: Never Assessed Sex and Gender Information Value Date Recorded Sex Assigned at Not on file Legal Sex Male 2:37 AM RECOATER Gender Identity Not on file Sexual Orientation Not on file documented as of this encounter Plan of Treatment Not on file documented as of this encounter Visit Diagnoses Not on filedocumented in this encounter Care Teams Story Editor Relationship Specialty Start Date End Date Non-Staff, Physician NO ADDRESS ON FILE PCP - General 11/02/19 documented as of this encounter
--- OUTSIDE RECORDS SUMMARY | 2025-08-23 09:53 | XMS_ITS | Encounter Summary ---
Author Organization [employer] [facility] Address [address] [place] [address] Care Team Providers Care Community Service Manager Name Role Phone Non-Staff, Physician Primary Care Provider Unava ilable Encounter Details Date Type Department Care Team (Latest Contact Info) Description 06/23/2002 Outpatient Historical [facility] Irvin Small Jr., MD [address] [place] [phone] Pure hypercholesterolem (Primary Dx); ABN FIND-STOOL CONTENTS-OCC BLOOD; Hypertrophy of prostate; AFTERCARE RETIREMENT USE MEDICATN Social History Tobacco Use Types Packs/Day Years Used Date Smoking Tobacco: Never Assessed Sex and Gender Information Value Date Recorded Sex Assigned at Not on file Legal Sex Male 2:37 AM INSTRUMENT MAINTENANCE SUPERVISOR Gender Identity Not on file Sexual Orientation Not on file documented as of this encounter Plan of Treatment Not on file documented as of this encounter Visit Diagnoses Diagnosis Pure hypercholesterolem- Primary Pure hypercholesterolemia Nonspecific abnormal finding in stool contents Hypertrophy of prostate Hypertrophy (benign) of prostate Encounter for long-term (current) use of other medications documented in this encounter Care Teams Community Service Manager Relationship Specialty Start Date End Date Non-Staff, Physician NO ADDRESS ON FILE PCP - General 11/02/19 documented as of this encounter
--- OUTSIDE RECORDS SUMMARY | 2025-08-23 09:53 | XMS_ITS | Encounter Summary ---
Author Organization [email or web address] [facility] Address [address] [place] [address] Care Team Providers Care Floral Specialist Name Role Phone Non-Staff, Physician Primary Care Provider Unava ilable Encounter Details Date Type Department Care Team (Latest Contact Info) Description 01/26/2000 Outpatient Historical [facility] Irvin Small Jr., MD [address] [place] [phone] Bronchitis, not specified as acute or chronic (Primary Dx) Social History Tobacco Use Types Packs/Day Years Used Date Smoking Tobacco: Never Assessed Sex and Gender Information Value Date Recorded Sex Assigned at Not on file Legal Sex Male 2:37 AM COMBAT ENGINEER Gender Identity Not on file Sexual Orientation Not on file documented as of this encounter Plan of Treatment Not on file documented as of this encounter Visit Diagnoses Diagnosis Bronchitis, not specified as acute or chronic- Primary documented in this encounter Care Teams Floral Specialist Relationship Specialty Start Date End Date Non-Staff, Physician NO ADDRESS ON FILE PCP - General 11/02/19 documented as of this encounter
--- OUTSIDE RECORDS SUMMARY | 2025-08-23 09:53 | XMS_ITS | Encounter Summary ---
Author Organization [facility] Address [address] [place] [address] Care Team Providers Care Cell Operator Name Role Phone Non-Staff, Physician Primary Care Provider Unava ilable Encounter Details Date Type Department Care Team (Latest Contact Info) Description 03/04/2007 Outpatient Historical [facility] Medicine [address] [place] [phone] Veronica Mc MD NO ADDRESS ON FILE Pneumonia, Organism Unspecified (Primary Dx); Obstructive Chronic Bronchitis with Exacerbation (CMS/HCC) Social History Tobacco Use Types Packs/Day Years Used Date Smoking Tobacco: Never Assessed Sex and Gender Information Value Date Recorded Sex Assigned at Not on file 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
--- OUTSIDE RECORDS SUMMARY | 2025-08-23 09:53 | XMS_ITS | Encounter Summary ---
Author Organization [employer] [facility] Address [address] [place] [address] Care Team Providers Care Tube Bender Name Role Phone Non-Staff, Physician Primary Care Provider Unava ilable Encounter Details Date Type Department Care Team (Latest Contact Info) Description 06/07/2003 Outpatient Historical [facility] Irvin Small Jr., MD [address] [place] [phone] ABN FIND-STOOL CONTENTS-OCC BLOOD (Primary Dx); PROSTATITIS NOS; UNILAT INGUINAL HERNIA Social History Tobacco Use Types Packs/Day Years Used Date Smoking Tobacco: Never Assessed Sex and Gender Information Value Date Recorded Sex Assigned at Not on file 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
--- OUTSIDE RECORDS SUMMARY | 2025-08-23 09:53 | XMS_ITS | Encounter Summary ---
Author Organization [facility] Address [address] [place] [address] Care Team Providers Care Assembler Ping Pong Table Name Role Phone Non-Staff, Physician Primary Care Provider Unava ilable Encounter Details Date Type Department Care Team (Latest Contact Info) Description 07/01/2000 Outpatient Historical [facility] Irvin Small Jr., MD [address] [place] [phone] Unspecified asthma(493.90) (Primary Dx); Esophageal reflux; Anal/rectal abscess Social History Tobacco Use Types Packs/Day Years Used Date Smoking Tobacco: Never Assessed Sex and Gender Information Value Date Recorded Sex Assigned at Not on file Legal Sex Male 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
--- OUTSIDE RECORDS SUMMARY | 2025-08-23 09:53 | XMS_ITS | Encounter Summary ---
Author Organization [employer] [facility] Address [address] [place] [address] Care Team Providers Care Conveyor Operator Name Role Phone Non-Staff, Physician Primary Care Provider Unava ilable Encounter Details Date Type Department Care Team (Latest Contact Info) Description 07/07/2002 Outpatient Historical [facility] Irvin Small Jr., MD [address] [place] [phone] Pure hypercholesterolem (Primary Dx) Social History Tobacco Use Types Packs/Day Years Used Date Smoking Tobacco: Never Assessed Sex and Gender Information Value Date Recorded Sex Assigned at Not on file 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
--- OUTSIDE RECORDS SUMMARY | 2025-08-23 09:53 | XMS_ITS | Encounter Summary ---
Author Organization [email or web address] [facility] Address [address] [place] [address] Care Team Providers Care Deckhand Maintenance Name Role Phone Non-Staff, Physician Primary Care Provider Unava ilable Encounter Details Date Type Department Care Team (Latest Contact Info) Description 12/07/2002 Outpatient Historical [facility] Irvin Small Jr., MD [address] [place] [phone] POLYDIPSIA (Primary Dx); POLYURIA; Pure hypercholesterolem; AFTERCARE SHELTER USE MEDICATN Social History Tobacco Use Types Packs/Day Years Used Date Smoking Tobacco: Never Assessed Sex and Gender Information Value Date Recorded Sex Assigned at Not on file 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
--- OUTSIDE RECORDS SUMMARY | 2025-08-23 09:53 | XMS_ITS | Encounter Summary ---
Author Organization [employer] [facility] Address [address] [place] [address] Care Team Providers Care Getterer Name Role Phone Non-Staff, Physician Primary Care Provider Unava ilable Encounter Details Date Type Department Care Team (Latest Contact Info) Description 06/01/2001 Outpatient Historical [facility] Irvin Small Jr., MD [address] [place] [phone] Nocturia (Primary Dx); Pure hypercholesterolem; Other specified disorder of rectum and anus; Hypertrophy of prostate Social History Tobacco Use Types Packs/Day Years Used Date Smoking Tobacco: Never Assessed Sex and Gender Information Value Date Recorded Sex Assigned at Not on file 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
--- OUTSIDE RECORDS SUMMARY | 2025-08-23 09:53 | XMS_ITS | Encounter Summary ---
Author Organization [employer] [facility] Address [address] [place] [facility] [place] [address] Care Team Providers Care Blending Kettle Tender Name Role Phone Non-Staff, Physician Primary Care Provider Unava ilable Encounter Details Date Type Department Care Team (Late st Contact Info) Description 04/07/2014 Ancillary Orders [facility] Services [place] [address] [place] [phone] Social History Tobacco Use Types Packs/Day Years Used Date Smoking Tobacco: Former Cigarettes Q uit: 11/08/1981 Alcohol Use Standard Drinks/Week Comments No 0 (1 standard drink = 0.6 oz pur e alcohol) Sex and Gender Information Value Date Recorded Sex Assigned at Not on file 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 Gender Identity Not on file Sexual Orientation Not on file documented as of this encounter Plan of Treatment Not on file documented as of this encounter Procedures Procedure Name Priority Date/Time Associated Diagnosis Comments PSA MEDICARE SCREEN Routine 04/07/2014 1 2:35 PM CDT ALT Routine 04/07/2014 12:35 PM CDT CREATININE Routine 04/07/2014 12:35 PM CDT documented in this encounter Results * CREATININE (04/07/2014 12:35 PM CDT) CREATININE 1.00 0.60 - 1.30 mg/dL 04/16/2014 1:52 PM CDT [facility] GFR >60 mL/min/1.7 3 sq meter 04/16/2014 1:52 PM CDT [facility] [place] Comment: The GFR result is not clinically significant on patients <18 or >70 years of age. GFR, >60 mL/min/1.7 3 sq meter 04/16/2014 1:52 PM CDT [facility] [place] Blood Venipuncture - L ab Collect / Unknown 04/07/2014 12:35 PM CDT 04/07/2014 12:35 PM CDT us External Provider Mtnv CHEMISTRY ORDERABLES Ana l Result [facility] CLIA # [id number] [address] [place] [address] * (ABNORMAL) ALT (04/07/2014 12:35 PM CDT) ALT 29(L) 30 - 65 U/L 04/16/2014 1:52 PM CDT [facility] Blood Venipuncture - L ab Collect / Unknown 04/07/2014 12:35 PM CDT 04/07/2014 12:35 PM CDT us External Provider Mtnv CHEMISTRY ORDERABLES Ana l Result Performing Organization Address City/[facility]/ZIP Co de Phone Number [facility] [employer] [facility] CLIA # [id number] [address] [place] [address] * PSA MEDICARE SCREEN (04/07/2014 12:35 PM CDT) PSA 1.6 0.0 - 4.0 ng/mL 04/07/2014 3:35 PM CDT [facility] Blood Venipuncture - L ab Collect / Unknown 04/07/2014 12:35 PM CDT 04/07/2014 12:35 PM CDT us External Provider Mtnv CHEMISTRY ORDERABLES COM Final Result Performing Organization Address City/[facility]/ZIP Co de Phone Number [facility] CLIA # [id number] [address] [place] [address] documented in this encounter Visit Diagnoses Not on filedocumented in this encounter Care Teams Blending Kettle Tender Relationship Specialty Start Date End Date Non-Staff, Physician NO ADDRESS ON FILE PCP - General 11/02/19 documented as of this encounter
--- OUTSIDE RECORDS SUMMARY | 2025-08-23 09:53 | XMS_ITS | Encounter Summary ---
Author Organization [email or web address] [facility] Address [address] [place] [address] Care Team Providers Care Uniformer Name Role Phone Non-Staff, Physician Primary Care Provider Unava ilable Encounter Details Date Type Department Care Team (Latest Contact Info) Description 04/10/2002 Outpatient Historical [facility] Irvin Small Jr., MD [address] [place] [phone] Pure hypercholesterolem (Primary Dx); LYMPHADENITIS NOS Social History Tobacco Use Types Packs/Day Years Used Date Smoking Tobacco: Never Assessed Sex and Gender Information Value Date Recorded Sex Assigned at Not on file Legal 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
--- OUTSIDE RECORDS SUMMARY | 2025-08-23 09:53 | XMS_ITS | Encounter Summary ---
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
--- OUTSIDE RECORDS SUMMARY | 2025-08-23 09:53 | XMS_ITS | Encounter Summary ---
Author Organization [facility] Address [address] [place] [address] Care Team Providers Care Mortgage Processing Clerk Name Role Phone Non-Staff, Physician Primary Care Provider Unava ilable Encounter Details Date Type Department Care Team (Latest Contact Info) Description 10/09/1998 Outpatient Historical [facility] Irvin Small Jr., MD [address] [place] [phone] Esophageal reflux (Primary Dx); Prostatitis, unspecified; Unspecified essential hypertension Social History Tobacco Use Types Packs/Day Years Used Date Smoking Tobacco: Never Assessed Sex and Gender Information Value Date Recorded Sex Assigned at Not on file Legal 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
--- OUTSIDE RECORDS SUMMARY | 2025-08-23 09:54 | XMS_ITS | Encounter Summary ---
Author Organization [facility] Address [address] [place] [place] [address] Care Team Providers Care Nca Certified Concierge Name Role Phone Non-Staff, Physician Primary Care Provider Unava ilable Encounter Details Date Type Department Care Team (Latest Contact Info) Description 09/01/2005 Outpatient Historical [facility] Family Medicine- [address] [place] [phone] Dayanara Small NP NO ADDRESS ON FILE OBST CHRON BRONCHITIS WITH EXAC ([facility]) (Primary Dx); ACUTE PHARYNGITIS; ACUTE SINUSITIS NOS Social History Tobacco Use Types Packs/Day Years Used Date Smoking Tobacco: Never Assessed Sex and Gender Information Value Date Recorded Sex Assigned at Not on file Legal Sex Male 2:37 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 Gender Identity Not on file Sexual Orientation Not on file documented as of this encounter Plan of Treatment Not on file documented as of this encounter Visit Diagnoses Diagnosis Obstructive chronic bronchitis with exacerbation ([facility])- Primary Obstructive chronic bronchitis with exacerbation Acute pharyngitis Acute sinusitis, unspecified documented in this encounter Care Teams Nca Certified Concierge Relationship Specialty Start Date End Date Non-Staff, Physician NO ADDRESS ON FILE PCP - General 11/02/19 documented as of this encounter
--- OUTSIDE RECORDS SUMMARY | 2025-08-23 09:54 | XMS_ITS | Encounter Summary ---
Author Organization [facility] Address [address] [facility] [place] [address] Care Team Providers Care Wine Steward/Stewardess Name Role Phone Non-Staff, Physician Primary Care Provider Unava ilable Encounter Details Date Type Department Care Team (Latest Contact Info) Description 11/28/[address] 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
--- OUTSIDE RECORDS SUMMARY | 2025-08-23 09:54 | XMS_ITS | Encounter Summary ---
Author Organization [facility] Address [address] [place] [facility] [place] [address] Care Team Providers Care Mgmt Analyst Name Role Phone Non-Staff, Physician Primary Care Provider Unava ilable Encounter Details Date Type Department Care Team (Latest Contact Info) Description 12/15/2004 Outpatient Historical [facility] Family Medicine- [address] [place] [phone] Veronica Mc MD NO ADDRESS ON FILE LOSS OF WEIGHT (Primary Dx); HYPERLIPIDEMIA NEC/NOS Social History Tobacco Use Types Packs/Day Years Used Date Smoking Tobacco: Never Assessed Sex and Gender Information Value Date Recorded Sex Assigned at Not on file 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
--- OUTSIDE RECORDS SUMMARY | 2025-08-23 09:54 | XMS_ITS | Encounter Summary ---
Author Organization [facility] Address [address] [place] [facility] [place] [address] Care Team Providers Care Radiographer Technologist Name Role Phone Non-Staff, Physician Primary Care Provider Unava ilable Encounter Details Date Type Department Care Team (Latest Contact Info) Description 08/12/2005 Outpatient Historical [facility] Family Medicine- [address] [place] [phone] Hector Flanagan DO NO ADDRESS ON FILE Vaccine for influenza (Primary Dx) Social History Tobacco Use Types Packs/Day Years Used Date Smoking Tobacco: Never Assessed Sex and Gender Information Value Date Recorded Sex Assigned at Not on file 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
[2025-08-23 10:04] LABS: Glucose Urine UA Negative (Normal); Nitrate Urine Negative (Negative); Specific Gravity, Urine 1.005 (1.005-1.030)
[2025-08-23 10:05] LABS: Alanine Aminotransferase 11 U/L (0-41); Albumin Level 3.6 g/dL (3.5-5.2); Alkaline Phosphatase 84 U/L (40-130); Anion Gap 17.2 (5-19); Aspartate Amino Transferase 11 U/L (0-40); Blood Urea Nitrogen 13 mg/dL (8-23); Calcium 9.5 mg/dL (8.5-10.5); Carbon Dioxide 25 mmol/L (22-29); Chloride 101 mmol/L (98-107); Globulin 3.3 g/dL (1.3-4.6); Glucose 192 mg/dL (65-115); Osmolality Calculated 293 mOsm/kg (285-295); Potassium 4.2 mmol/L (3.5-5.1); Sodium 139 mmol/L (136-145); Total Protein 6.9 g/dL (6.6-8.7)
[2025-08-23 10:07] LABS: Add Urine Microscopic? YES
[2025-08-23 11:04] VITALS: BP 155/67; O2SAT 95
[2025-08-23] MEDS: tetanus-dipt-pertussis 0.5 mL SDV IM (11:40)
[2025-08-23 14:03] VITALS: BP 155/87; PULSE 81; O2SAT 98
== END 2025-08-23 14:03 | disposition home or self-care (01) ==
PROVIDERS: Emergency Provider Family Medicine; PCP Registered Nurse
DX: S01.01XA Laceration without foreign body of scalp, initial encounter (principal); Z79.84 Long term (current) use of oral hypoglycemic drugs; Z79.4 Long term (current) use of insulin; Z87.891 Personal history of nicotine dependence; E11.9 Type 2 diabetes mellitus without complications; Z85.118 Personal history of other malignant neoplasm of bronchus and lung; W06.XXXA Fall from bed, initial encounter
CPT/HCPCS: 12002; 36415; 70450; 71045; 72125; 80053; 81001; 85025; 90471; 90715; 93005; 99285; J9999

== ENCOUNTER 2025-09-14 21:28 | Emergency (ER) | payer MEDICARE, OTHER, SELFPAY ==
--- OUTSIDE RECORDS SUMMARY | 2025-09-14 21:32 | XMS_ITS | Clinical Summary ---
Author Organization [facility] [place] Address [address] [place] [address] Care Team Providers Care Technician Semiconductor Development Name Role Phone Non-Staff, Physician Primary Care [...] on file Legal Sex Male 2:37 AM COKEMAN Gender Identity Not on file Sexual Orientation Not on file Last Filed Vital Signs Vital Sign Reading Time Taken Comments Blood Pressure 122/66 11/02/2017 8:54 AM COKEMAN Pulse 88 11/02/2017 8:54 AM COKEMAN Temperature 38.3 C (100.9 F) 11/02/2017 8:54 AM COKEMAN Respiratory Rate 40 11/02/2017 8:54 AM COKEMAN Oxygen Saturation 94% 11/02/2017 8:54 AM COKEMAN Inhaled Oxygen Concentration - - Weight 89.2 kg (196 lb 9.6 oz) 11/02/2017 8:54 A M COKEMAN Height 170.2 cm (5' 7 ) 11/02/2017 8:54 AM COKEMAN Body Mass Index 30.79 11/02/2017 8:54 AM COKEMAN Plan of Treatment Health Maintenance Due Date [...] Comments LIPID PANEL Routine 11/28/2004 9:47 PM COKEMAN HEMOGLOBIN A1C Routine 11/28/2004 9:47 PM COKEMAN from Last 3 Months or Most Recently Relevant to Health Maintenance Results * (ABNORMAL) HEMOGLOBIN A1C (11/28/2004 9:47 PM COKEMAN) HEMOGLOBIN A1C 6.5(H) 4.0 - 6.0 %A1C INTERFACE SYSTEM 11/28/2004 9:47 PM COKEMAN us Veronica Mc MD CHEMISTRY ORDERABLES Final Result Performing Organization Address [facility] Co de Phone Number INTERFACE SYSTEM Refer to clinic/hospital department * LIPID PANEL (11/28/2004 9:47 PM COKEMAN) CHOLESTEROL 140 75 - 200 mg/dL INTERFACE [...] 130 mg/dL INTERFACE SYSTEM 11/28/2004 9:47 PM COKEMAN us Veronica Mc MD CHEMISTRY ORDERABLES Final Result INTERFACE SYSTEM Refer to clinic/hospital department from Last 3 Months or Most Recently Relevant to Health Maintenance Insurance MEDICARE PART A AND B [employer] Care Teams Technician Semiconductor Development Relationship Specialty Start Date End Date Non-Staff, Physician NO ADDRESS ON FILE PCP - General 11/02/19
--- OUTSIDE RECORDS SUMMARY | 2025-09-14 21:32 | XMS_ITS | Encounter Summary ---
Author Organization [employer] [facility] Address [address] [place] [address] Care Team Providers Care Aix Architect Name Role Phone Non-Staff, Physician Primary Care Provider Unava ilable Encounter Details Date Type Department Care Team (Latest Contact Info) Description 04/10/2002 Outpatient Historical [facility] Irvin Small Jr., MD [address] [place] [phone] Pure hypercholesterolem (Primary Dx); LYMPHADENITIS NOS Social History Tobacco Use Types Packs/Day Years Used Date Smoking Tobacco: Never Assessed Sex and Gender Information Value Date Recorded Sex Assigned at Not on file Legal Sex Male 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
--- OUTSIDE RECORDS SUMMARY | 2025-09-14 21:32 | XMS_ITS | Encounter Summary ---
Author Organization [facility] Address [address] [place] [place] [address] Care Team Providers Care Consignee Name Role Phone Non-Staff, Physician Primary Care Provider Unava ilable Encounter Details Date Type Department Care Team (Latest Contact Info) Description 09/14/2003 Outpatient Historical [facility] Family Medicine- [address] [place] [phone] Veronica Mc MD NO ADDRESS ON FILE VACCINE FOR DISEASE NEC (Primary Dx) Social History Tobacco Use Types Packs/Day Years Used Date Smoking Tobacco: Never Assessed Sex and Gender Information Value Date Recorded Sex Assigned at Not on file 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
--- OUTSIDE RECORDS SUMMARY | 2025-09-14 21:32 | XMS_ITS | Encounter Summary ---
Author Organization [facility] [employer] [facility] Address [address] [place] [address] Care Team Providers Care Evaluator Transfer Students Name Role Phone Non-Staff, Physician Primary Care Provider Unava ilable Encounter Details Date Type Department Care Team (Latest Contact Info) Description 06/01/2001 Outpatient Historical [facility] Irvin Small Jr., MD [address] [place] [phone] Nocturia (Primary Dx); Pure hypercholesterolem; Other specified disorder of rectum and anus; Hypertrophy of prostate Social History Tobacco Use Types Packs/Day Years Used Date Smoking Tobacco: Never Assessed Sex and Gender Information Value Date Recorded Sex Assigned at Not on file Legal Sex Male 2:37 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
--- OUTSIDE RECORDS SUMMARY | 2025-09-14 21:32 | XMS_ITS | Encounter Summary ---
Author Organization [facility] Address [address] [place] [address] Care Team Providers Care Yoke Presser Name Role Phone Non-Staff, Physician Primary Care Provider Unava ilable Encounter Details Date Type Department Care Team (Latest Contact Info) Description 11/28/[address] [facility] Family Medicine- [address] [place] [phone] Veronica Mc MD NO ADDRESS ON FILE POLYDIPSIA (Primary Dx) Social History Tobacco Use Types Packs/Day Years Used Date Smoking Tobacco: Never Assessed Sex and Gender Information Value Date Recorded Sex Assigned at Not on file Legal Sex Male 2:37 AM THEATRICAL TROUPER Gender Identity Not on file Sexual Orientation Not on file documented as of this encounter Plan of Treatment Not on file documented as of this encounter Procedures Procedure Name Priority Date/Time Associated Diagnosis Comments ALT Routine 11/28/2004 9:47 PM THEATRICAL TROUPER BRAIN NATRIURETIC PEPTIDE, BNP OR PROBNP Routine 11/28/2004 9:47 PM THEATRICAL TROUPER HEMOGLOBIN A1C Routine 11/28/2004 9:47 PM THEATRICAL TROUPER LIPID PANEL Routine 11/28/2004 9:47 PM THEATRICAL TROUPER BASIC METABOLIC PANEL Routine 11/28/2004 9:47 PM THEATRICAL TROUPER documented in this encounter Results * (ABNORMAL) HEMOGLOBIN A1C (11/28/2004 9:47 PM THEATRICAL TROUPER) HEMOGLOBIN A1C 6.5(H) 4.0 - 6.0 %A1C INTERFACE SYSTEM 11/28/2004 9:47 PM THEATRICAL TROUPER us Veronica Mc MD CHEMISTRY ORDERABLES Final Result INTERFACE SYSTEM Refer to clinic/hospital department * (ABNORMAL) BRAIN NATRIURETIC PEPTIDE, BNP OR PROBNP (11/28/2004 9:47 PM THEATRICAL TROUPER) BRAIN NATRIURETIC PEPTIDE 152(H) 0 - 125 pg/mL INTERFACE SYSTEM 11/28/2004 9:47 PM THEATRICAL TROUPER us Veronica Mc MD CHEMISTRY ORDERABLES Final Result Performing Organization Address City/[facility] Co de Phone Number INTERFACE SYSTEM Refer to clinic/hospital department * ALT (11/28/2004 9:47 PM THEATRICAL TROUPER) ALT 34 21 - 72 IU/L INTERFACE SYSTEM 11/28/2004 9:47 PM THEATRICAL TROUPER us Veronica Mc MD CHEMISTRY ORDERABLES Final Result Performing Organization Address City/[facility] Co de Phone Number INTERFACE SYSTEM Refer to clinic/hospital department * LIPID PANEL (11/28/2004 9:47 PM THEATRICAL TROUPER) CHOLESTEROL 140 75 - 200 mg/dL INTERFACE [...] 130 mg/dL INTERFACE SYSTEM 11/28/2004 9:47 PM THEATRICAL TROUPER us Veronica Mc MD CHEMISTRY ORDERABLES Final Result INTERFACE SYSTEM Refer to clinic/hospital department * BASIC METABOLIC PANEL (11/28/2004 9:47 PM THEATRICAL TROUPER) GLUCOSE 100 70 - 110 mg/dL INTERFACE [...] 10.5 mg/dL INTERFACE SYSTEM 11/28/2004 9:47 PM THEATRICAL TROUPER us Veronica Mc MD CHEMISTRY ORDERABLES Final Result INTERFACE SYSTEM Refer to clinic/hospital department documented in this encounter Visit Diagnoses Diagnosis Polydipsia- Primary documented in this encounter Care Teams Yoke Presser Relationship Specialty Start Date End Date Non-Staff, Physician NO ADDRESS ON FILE PCP - General 11/02/19 documented as of this encounter
--- OUTSIDE RECORDS SUMMARY | 2025-09-14 21:32 | XMS_ITS | Encounter Summary ---
Author Organization [employer] [facility] Address [address] [place] [facility] [place] [address] Care Team Providers Care Mobility Architect Manager Name Role Phone Non-Staff, Physician Primary Care Provider Unava ilable Encounter Details Date Type Department Care Team (Late st Contact Info) Description 04/07/2014 Ancillary Orders [facility] Laboratory Services [place] [address] [place] [phone] Social History Tobacco Use Types Packs/Day Years Used Date Smoking Tobacco: Former Cigarettes Q uit: 11/08/1981 Alcohol Use Standard Drinks/Week Comments No 0 (1 standard drink = 0.6 oz pur e alcohol) Sex and Gender Information Value Date Recorded Sex Assigned at Not on file 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 GFR, >60 mL/min/1.7 3 sq meter 04/16/2014 1:52 PM CDT [facility] [place] Blood Venipuncture - L ab Collect / Unknown 04/07/2014 12:35 PM CDT 04/07/2014 12:35 PM CDT us External Provider Mtnv CHEMISTRY ORDERABLES Ana l Result [facility] SERVICES [facility] CLIA # [id number] [address] [place] [address] * (ABNORMAL) ALT (04/07/2014 12:35 PM CDT) ALT 29(L) 30 - 65 U/L 04/16/2014 1:52 PM CDT [facility] Blood Venipuncture - L ab Collect / Unknown 04/07/2014 12:35 PM CDT 04/07/2014 12:35 PM CDT us External Provider Mtnv CHEMISTRY ORDERABLES Ana l Result Performing Organization Address City/[facility]/ZIP Co de Phone Number [facility] [employer] [facility] CLIA # [id number] [address] [place] [phone] * PSA MEDICARE SCREEN (04/07/2014 12:35 PM CDT) PSA 1.6 0.0 - 4.0 ng/mL 04/07/2014 3:35 PM CDT [email or web address] Blood Venipuncture - L ab Collect / Unknown 04/07/2014 12:35 PM CDT 04/07/2014 12:35 PM CDT us External Provider Mtnv CHEMISTRY ORDERABLES COM Final Result Performing Organization Address City/[facility]/ZIP Co de Phone Number [facility] CLIA # [id number] [address] [place] [address] documented in this encounter Visit Diagnoses Not on filedocumented in this encounter Care Teams Mobility Architect Manager Relationship Specialty Start Date End Date Non-Staff, Physician NO ADDRESS ON FILE PCP - General 11/02/19 documented as of this encounter
--- OUTSIDE RECORDS SUMMARY | 2025-09-14 21:32 | XMS_ITS | Encounter Summary ---
Author Organization [facility] Address [address] [facility] [place] [address] Care Team Providers Care Charter And Tour Bus Driver Name Role Phone Non-Staff, Physician Primary Care Provider Unava ilable Encounter Details Date Type Department Care Team (Latest Contact Info) Description 08/12/2005 Outpatient Historical [facility] Family Medicine- [address] [place] [phone] Hector Flanagan DO NO ADDRESS ON FILE Vaccine for influenza (Primary Dx) Social History Tobacco Use Types Packs/Day Years Used Date Smoking Tobacco: Never Assessed Sex and Gender Information Value Date Recorded Sex Assigned at Not on file Legal Sex Male 2:37 AM BUSINESS SERVICES 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
--- OUTSIDE RECORDS SUMMARY | 2025-09-14 21:32 | XMS_ITS | Encounter Summary ---
Author Organization [facility] Address [address] [place] [address] Care Team Providers Care Correctional Sergeant Name Role Phone Non-Staff, Physician Primary Care Provider Unava ilable Encounter Details Date Type Department Care Team (Latest Contact Info) Description 07/01/2000 Outpatient Historical [facility] Irvin Small Jr., MD [address] [place] [phone] Unspecified asthma(493.90) (Primary Dx); Esophageal reflux; Anal/rectal abscess Social History Tobacco Use Types Packs/Day Years Used Date Smoking Tobacco: Never Assessed Sex and Gender Information Value Date Recorded Sex Assigned at Not on file Legal Sex Male 2:37 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
--- OUTSIDE RECORDS SUMMARY | 2025-09-14 21:32 | XMS_ITS | Encounter Summary ---
Author Organization [facility] Address [address] [place] [address] Care Team Providers Care Truck Striker Name Role Phone Non-Staff, Physician Primary Care Provider Unava ilable Encounter Details Date Type Department Care Team (Late st Contact Info) Description 05/04/2003 Outpatient Historical [facility] Irvin Small Jr., MD [address] [place] [phone] Social History Tobacco Use Types Packs/Day Years Used Date Smoking Tobacco: Never Assessed Sex and Gender Information Value Date Recorded Sex Assigned at Not on file Legal Sex Male 2:37 AM AIR TRAFFIC COORDINATOR Gender Identity Not on file Sexual Orientation Not on file documented as of this encounter Plan of Treatment Not on file documented as of this encounter Visit Diagnoses Not on filedocumented in this encounter Care Teams Truck Striker Relationship Specialty Start Date End Date Non-Staff, Physician NO ADDRESS ON FILE PCP - General 11/02/19 documented as of this encounter
--- OUTSIDE RECORDS SUMMARY | 2025-09-14 21:32 | XMS_ITS | Encounter Summary ---
Author Organization [employer] [facility] Address [address] [place] [address] Care Team Providers Care Thaw Shed Heater Tender Name Role Phone Non-Staff, Physician Primary Care Provider Unava ilable Encounter Details Date Type Department Care Team (Latest Contact Info) Description 06/23/2002 Outpatient Historical [facility] Irvin Small Jr., MD [address] [place] [phone] Pure hypercholesterolem (Primary Dx); ABN FIND-STOOL CONTENTS-OCC BLOOD; Hypertrophy of prostate; [facility] USE MEDICATN Social History Tobacco Use Types Packs/Day Years Used Date Smoking Tobacco: Never Assessed Sex and Gender Information Value Date Recorded Sex Assigned at Not on file Legal Sex Male 2:37 AM DIRECTOR CASE Gender Identity Not on file Sexual Orientation Not on file documented as of this encounter Plan of Treatment Not on file documented as of this encounter Visit Diagnoses Diagnosis Pure hypercholesterolem- Primary Pure hypercholesterolemia Nonspecific abnormal finding in stool contents 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
--- OUTSIDE RECORDS SUMMARY | 2025-09-14 21:32 | XMS_ITS | Encounter Summary ---
Author Organization [facility] Address [address] [place] [address] Care Team Providers Care Lumber Handler Name Role Phone Non-Staff, Physician Primary Care Provider Unava ilable Encounter Details Date Type Department Care Team (Latest Contact Info) Description 03/04/2007 Outpatient Historical [facility] [address] [phone] Veronica Mc MD NO ADDRESS ON FILE Pneumonia, Organism Unspecified (Primary Dx); Obstructive Chronic Bronchitis with Exacerbation (CMS/HCC) Social History Tobacco Use Types Packs/Day Years Used Date Smoking Tobacco: Never Assessed Sex and Gender Information Value Date Recorded Sex Assigned at Not on file Legal Sex Male 2:37 AM CLIENT DELIVERY SPECIALIST Gender Identity Not on file Sexual Orientation Not on file documented as of this encounter Plan of Treatment Not on file documented as of this encounter Visit Diagnoses Diagnosis Pneumonia, organism unspecified(486)- Primary Pneumonia, organism unspecified Obstructive chronic bronchitis with exacerbation (CMS/HCC) Obstructive chronic bronchitis with exacerbation documented in this encounter Care Teams Lumber Handler Relationship Specialty Start Date End Date Non-Staff, Physician NO ADDRESS ON FILE PCP - General 11/02/19 documented as of this encounter
--- OUTSIDE RECORDS SUMMARY | 2025-09-14 21:32 | XMS_ITS | Encounter Summary ---
Author Organization [facility] Address [address] [place] [facility] [place] [address] Care Team Providers Care Jewel Hole Finish Opener Name Role Phone Non-Staff, Physician Primary Care Provider Unava ilable Encounter Details Date Type Department Care Team (Latest Contact Info) Description 09/01/2005 Outpatient Historical [facility] Family Medicine- [address] [place] [phone] Dayanara Small NP NO ADDRESS ON FILE OBST CHRON BRONCHITIS WITH EXAC ([facility]) (Primary Dx); ACUTE PHARYNGITIS; ACUTE SINUSITIS NOS Social History Tobacco Use Types Packs/Day Years Used Date Smoking Tobacco: Never Assessed Sex and Gender Information Value Date Recorded Sex Assigned at Not on file Legal Sex Male 2:37 AM CLINICAL INFORMATICS SPECIALIST Gender Identity Not on file Sexual Orientation Not on file documented as of this encounter Plan of Treatment Not on file documented as of this encounter Visit Diagnoses Diagnosis Obstructive chronic bronchitis with exacerbation ([facility])- Primary Obstructive chronic bronchitis with exacerbation Acute pharyngitis Acute sinusitis, unspecified documented in this encounter Care Teams Jewel Hole Finish Opener Relationship Specialty Start Date End Date Non-Staff, Physician NO ADDRESS ON FILE PCP - General 11/02/19 documented as of this encounter
--- OUTSIDE RECORDS SUMMARY | 2025-09-14 21:32 | XMS_ITS | Encounter Summary ---
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
--- OUTSIDE RECORDS SUMMARY | 2025-09-14 21:32 | XMS_ITS | Encounter Summary ---
Author Organization [employer] [facility] Address [address] [place] [address] Care Team Providers Care Larriman Name Role Phone Non-Staff, Physician Primary Care Provider Unava ilable Encounter Details Date Type Department Care Team (Latest Contact Info) Description 12/07/2002 Outpatient Historical [facility] Irvin Small Jr., MD [address] [place] [phone] POLYDIPSIA (Primary Dx); POLYURIA; Pure hypercholesterolem; [facility] USE MEDICATN Social History Tobacco Use Types Packs/Day Years Used Date Smoking Tobacco: Never Assessed Sex and Gender Information Value Date Recorded Sex Assigned at Not on file Legal Sex Male 2:37 AM DREDGE OPERATOR Gender Identity Not on file Sexual Orientation Not on file documented as of this encounter Plan of Treatment Not on file documented as of this encounter Visit Diagnoses Diagnosis Polydipsia- Primary Polyuria Pure hypercholesterolem Pure hypercholesterolemia Encounter for long-term (current) use of other medications documented in this encounter Care Teams Larriman Relationship Specialty Start Date End Date Non-Staff, Physician NO ADDRESS ON FILE PCP - General 11/02/19 documented as of this encounter
--- OUTSIDE RECORDS SUMMARY | 2025-09-14 21:32 | XMS_ITS | Encounter Summary ---
Author Organization [facility] Address [address] [place] [address] Care Team Providers Care Welt Edge Rounder Name Role Phone Non-Staff, Physician Primary Care Provider Unava ilable Encounter Details Date Type Department Care Team (Latest Contact Info) Description 04/21/1999 Outpatient Historical [facility] Irvin Small Jr., MD [address] [place] [phone] Esophageal reflux (Primary Dx); Dyspepsia and other specified disorders of function of stomach Social History Tobacco Use Types Packs/Day Years Used Date Smoking Tobacco: Never Assessed Sex and Gender Information Value Date Recorded Sex Assigned at Not on file Legal Sex Male 2:37 AM REGULATORY AFFAIRS COORDINATOR Gender Identity Not on file Sexual Orientation Not on file documented as of this encounter Plan of Treatment Not on file documented as of this encounter Visit Diagnoses Diagnosis Esophageal reflux- Primary Dyspepsia and other specified disorders of function of stomach documented in this encounter Care Teams Welt Edge Rounder Relationship Specialty Start Date End Date Non-Staff, Physician NO ADDRESS ON FILE PCP - General 11/02/19 documented as of this encounter
--- OUTSIDE RECORDS SUMMARY | 2025-09-14 21:32 | XMS_ITS | Encounter Summary ---
Author Organization [employer] [facility] Address [address] [place] [address] Care Team Providers Care Ic Designer Custom Name Role Phone Non-Staff, Physician Primary Care Provider Unava ilable Encounter Details Date Type Department Care Team (Latest Contact Info) Description 01/26/2000 Outpatient Historical [facility] Irvin Small Jr., MD [address] [place] [phone] Bronchitis, not specified as acute or chronic (Primary Dx) Social History Tobacco Use Types Packs/Day Years Used Date Smoking Tobacco: Never Assessed Sex and Gender Information Value Date Recorded Sex Assigned at Not on file Legal Sex Male 2:37 AM POLITICAL SCIENCE CHAIR Gender Identity Not on file Sexual Orientation Not on file documented as of this encounter Plan of Treatment Not on file documented as of this encounter Visit Diagnoses Diagnosis Bronchitis, not specified as acute or chronic- Primary documented in this encounter Care Teams Ic Designer Custom Relationship Specialty Start Date End Date Non-Staff, Physician NO ADDRESS ON FILE PCP - General 11/02/19 documented as of this encounter
--- OUTSIDE RECORDS SUMMARY | 2025-09-14 21:32 | XMS_ITS | Encounter Summary ---
Author Organization [facility] Address [address] [facility] [address] Care Team Providers Care Elevator Mechanic Name Role Phone Non-Staff, Physician Primary Care Provider Unava ilable Encounter Details Date Type Department Care Team (Latest Contact Info) Description 04/03/2003 Outpatient Historical [facility] Family Medicine- [address] [place] [phone] Hector Flanagan DO NO ADDRESS ON FILE ACUTE BRONCHITIS (Primary Dx) Social History Tobacco Use Types Packs/Day Years Used Date Smoking Tobacco: Never Assessed Sex and Gender Information Value Date Recorded Sex Assigned at Not on file Legal Sex Male 2:37 AM SHOWER ATTENDANT Gender Identity Not on file Sexual Orientation Not on file documented as of this encounter Plan of Treatment Not on file documented as of this encounter Visit Diagnoses Diagnosis Acute bronchitis- Primary documented in this encounter Care Teams Elevator Mechanic Relationship Specialty Start Date End Date Non-Staff, Physician NO ADDRESS ON FILE PCP - General 11/02/19 documented as of this encounter
--- OUTSIDE RECORDS SUMMARY | 2025-09-14 21:32 | XMS_ITS | Encounter Summary ---
Author Organization [employer] Address [address] [place] [address] Care Team Providers Care Home Lending Officer Name Role Phone Non-Staff, Physician Primary Care Provider Unava ilable Encounter Details Date Type Department Care Team (Latest Contact Info) Description 10/08/1999 Outpatient Historical [facility] Irvin Small Jr., MD [address] [place] [phone] Hyperplasia of prostate (Primary Dx); Esophageal reflux; Diaphragmatic hernia Social History Tobacco Use Types Packs/Day Years Used Date Smoking Tobacco: Never Assessed Sex and Gender Information Value Date Recorded Sex Assigned at Not on file Legal Sex Male 2:37 AM ULTRASOUND TECHNOLOGIST 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
--- OUTSIDE RECORDS SUMMARY | 2025-09-14 21:32 | XMS_ITS | Encounter Summary ---
Author Organization [facility] Address [address] [place] [facility] [place] [address] Care Team Providers Care Manager Ui Name Role Phone Non-Staff, Physician Primary Care Provider Unava ilable Encounter Details Date Type Department Care Team (Latest Contact Info) Description 08/19/1999 Outpatient Historical [facility] Family Medicine- [address] [place] [phone] Hector Flanagan, DO NO ADDRESS ON FILE Need vaccination-viral disease (Primary Dx) Social History Tobacco Use Types Packs/Day Years Used Date Smoking Tobacco: Never Assessed Sex and Gender Information Value Date Recorded Sex Assigned at Not on file Legal Sex Male 2:37 AM ACTIVITY ASSISTANT Gender Identity Not on file Sexual Orientation Not on file documented as of this encounter Plan of Treatment Not on file documented as of this encounter Visit Diagnoses Diagnosis Need vaccination-viral disease- Primary Need for prophylactic vaccination and inoculation against other viral diseases documented in this encounter Care Teams Manager Ui Relationship Specialty Start Date End Date Non-Staff, Physician NO ADDRESS ON FILE PCP - General 11/02/19 documented as of this encounter
--- OUTSIDE RECORDS SUMMARY | 2025-09-14 21:32 | XMS_ITS | Encounter Summary ---
Author Organization [facility] Address [address] [place] [address] Care Team Providers Care Crop Or Livestock Tenant Farmer Name Role Phone Non-Staff, Physician Primary Care Provider Unava ilable Encounter Details Date Type Department Care Team (Latest Contact Info) Description 10/09/1998 Outpatient Historical [facility] Irvin Small Jr., MD [address] [place] [phone] Esophageal reflux (Primary Dx); Prostatitis, unspecified; Unspecified essential hypertension Social History Tobacco Use Types Packs/Day Years Used Date Smoking Tobacco: Never Assessed Sex and Gender Information Value Date Recorded Sex Assigned at Not on file Legal Sex Male 2:37 AM HEATING WORKER Gender Identity Not on file Sexual Orientation Not on file documented as of this encounter Plan of Treatment Not on file documented as of this encounter Visit Diagnoses Diagnosis Esophageal reflux- Primary Prostatitis, unspecified Unspecified essential hypertension documented in this encounter Care Teams Crop Or Livestock Tenant Farmer Relationship Specialty Start Date End Date Non-Staff, Physician NO ADDRESS ON FILE PCP - General 11/02/19 documented as of this encounter
--- OUTSIDE RECORDS SUMMARY | 2025-09-14 21:32 | XMS_ITS | Encounter Summary ---
Author Organization [facility] Address [address] [place] [address] Care Team Providers Care Drop Hammer Mechanic Name Role Phone Non-Staff, Physician Primary Care Provider Unava ilable Encounter Details Date Type Department Care Team (Latest Contact Info) Description 06/04/1999 Outpatient Historical [facility] Irvin Small Jr., MD [address] [place] [phone] Esophageal reflux (Primary Dx) Social History Tobacco Use Types Packs/Day Years Used Date Smoking Tobacco: Never Assessed Sex and Gender Information Value Date Recorded Sex Assigned at Not on file 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
--- OUTSIDE RECORDS SUMMARY | 2025-09-14 21:32 | XMS_ITS | Encounter Summary ---
Author Organization [facility] Address [address] [place] [facility] [place] [address] Care Team Providers Care Watershed Manager Name Role Phone Non-Staff, Physician Primary Care Provider Unava ilable Encounter Details Date Type Department Care Team (Latest Contact Info) Description 12/15/2004 Outpatient Historical [facility] Family Medicine- [address] [place] [phone] Veronica Mc MD NO ADDRESS ON FILE LOSS OF WEIGHT (Primary Dx); HYPERLIPIDEMIA NEC/NOS Social History Tobacco Use Types Packs/Day Years Used Date Smoking Tobacco: Never Assessed Sex and Gender Information Value Date Recorded Sex Assigned at Not on file 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
--- OUTSIDE RECORDS SUMMARY | 2025-09-14 21:32 | XMS_ITS | Encounter Summary ---
Author Organization [employer] [facility] Address [address] [place] [address] Care Team Providers Care Director Hr Communications Name Role Phone Non-Staff, Physician Primary Care Provider Unava ilable Encounter Details Date Type Department Care Team (Latest Contact Info) Description 06/07/2003 Outpatient Historical [facility] Irvin Small Jr., MD [address] [place] [phone] ABN FIND-STOOL CONTENTS-OCC BLOOD (Primary Dx); PROSTATITIS NOS; UNILAT INGUINAL HERNIA Social History Tobacco Use Types Packs/Day Years Used Date Smoking Tobacco: Never Assessed Sex and Gender Information Value Date Recorded Sex Assigned at Not on file 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
--- OUTSIDE RECORDS SUMMARY | 2025-09-14 21:32 | XMS_ITS | Encounter Summary ---
Author Organization [facility] Address [address] [facility] [place] [address] Care Team Providers Care Tank Operator Name Role Phone Non-Staff, Physician Primary Care Provider Unava ilable Encounter Details Date Type Department Care Team (Latest Contact Info) Description 08/23/2002 Outpatient Historical [facility] Family Medicine- [address] [place] [phone] Veronica Mc MD NO ADDRESS ON FILE ACUTE BRONCHITIS (Primary Dx); HYPERTENSION NOS; CHRONIC AIRWAY OBSTRUCTION NEC (CMS/[facility]) Social History Tobacco Use Types Packs/Day Years Used Date Smoking Tobacco: Never Assessed Sex and Gender Information Value Date Recorded Sex Assigned at Not on file 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
--- OUTSIDE RECORDS SUMMARY | 2025-09-14 21:32 | XMS_ITS | Encounter Summary ---
Author Organization [facility] Address [address] [place] [address] Care Team Providers Care Poultry Field Service Technician Name Role Phone Non-Staff, Physician Primary Care Provider Unava ilable Encounter Details Date Type Department Care Team (Latest Contact Info) Description 12/21/[address] [facility] Irvin Small Jr., MD [address] [place] [phone] ESOPHAGEAL REFLUX (Primary Dx); IMPACTED CERUMEN; ALLERGIC RHINITIS NEC; Hypertrophy of prostate Social History Tobacco Use Types Packs/Day Years Used Date Smoking Tobacco: Never Assessed Sex and Gender Information Value Date Recorded Sex Assigned at Not on file 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
--- OUTSIDE RECORDS SUMMARY | 2025-09-14 21:32 | XMS_ITS | Encounter Summary ---
Author Organization [employer] [facility] Address [address] [place] [address] Care Team Providers Care Decay Control Operator Name Role Phone Non-Staff, Physician Primary Care Provider Unava ilable Encounter Details Date Type Department Care Team (Latest Contact Info) Description 05/04/2003 Outpatient Historical [facility] Irvin Small Jr., MD [address] [place] [phone] Hypertrophy of prostate (Primary Dx) Social History Tobacco Use Types Packs/Day Years Used Date Smoking Tobacco: Never Assessed Sex and Gender Information Value Date Recorded Sex Assigned at Not on file 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
--- OUTSIDE RECORDS SUMMARY | 2025-09-14 21:32 | XMS_ITS | Encounter Summary ---
Author Organization [employer] [facility] Address [address] [place] [address] Care Team Providers Care Building Construction Inspector Name Role Phone Non-Staff, Physician Primary Care Provider Unava ilable Encounter Details Date Type Department Care Team (Latest Contact Info) Description 07/07/2002 Outpatient Historical [facility] Irvin Small Jr., MD [address] [place] [phone] Pure hypercholesterolem (Primary Dx) Social History Tobacco Use Types Packs/Day Years Used Date Smoking Tobacco: Never Assessed Sex and Gender Information Value Date Recorded Sex Assigned at Not on file 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
--- OUTSIDE RECORDS SUMMARY | 2025-09-14 21:32 | XMS_ITS | Encounter Summary ---
Author Organization [facility] Address [address] [place] [facility] [place] [facility] [place] [address] Care Team Providers Care Environmental Engineering Aide Name Role Phone Non-Staff, Physician Primary Care Provider Unava ilable Encounter Details Date Type Department Care Team (Latest Contact Info) Description 11/28/2004 Outpatient Historical [facility] Family Medicine- [address] [place] [phone] Veronica Mc MD NO ADDRESS ON FILE HYPERTENSION NOS (Primary Dx); CHR ISCHEMIC HRT DIS NOS; POLYDIPSIA Social History Tobacco Use Types Packs/Day Years Used Date Smoking Tobacco: Never Assessed Sex and Gender Information Value Date Recorded Sex Assigned at Not on file 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
--- NOTE | 2025-09-14 21:35 | CTR_ITS ---
PROCEDURE INFORMATION: Exam: CT Abdomen And Pelvis With Contrast Exam date and time: 09/14/2025 10:31 PM Age: 85 years old Clinical indication: Abdominal pain; Localized; Prior surgery; Surgery date: 6+ months; Surgery type: Appy; Lower abd pain with dysuria. History of pulmonary adenocarcinoma. Moreno in place. ; Additional info: Low abdominal pain, rectal pain, can't urinate TECHNIQUE: Imaging protocol: Computed tomography of the abdomen and pelvis with contrast. Radiation optimization: All CT scans at this facility use at least one of these dose optimization techniques: automated exposure control; mA and/or kV adjustment per patient size (includes targeted exams where dose is matched to clinical indication); or iterative reconstruction. Contrast material: OMNI 350; Contrast volume: 100 ml; Contrast route: INTRAVENOUS (IV); COMPARISON: CT chest abdpel w/*[id number] 06/18/2025 12:15 PM RADIATION DOSE METRICS: Total DLP (mGy-cm): 653.49 FINDINGS: Liver: Normal. No mass. Gallbladder and biliary ducts: Normal. No calcified stones. No ductal dilation. Pancreas: Normal. No ductal dilation. Spleen: Normal. No splenomegaly. Adrenal glands: Normal. No mass. Kidneys and ureters: Right kidney upper pole renal cyst measures 2.3 cm. Stomach and bowel: Diverticulosis, without acute diverticulitis. No small bowel obstruction. No free air. Appendix: No evidence of appendicitis. Intraperitoneal space: See Stomach and bowel finding. Vasculature: Atherosclerotic changes of the aorta. Lymph nodes: Unremarkable. No enlarged lymph nodes. Urinary bladder: Moreno catheter terminates in the urinary bladder. Reproductive: Unremarkable as visualized. Bones/joints: Degenerative changes of the spine. Soft tissues: Fat containing bilateral inguinal hernias. Small fat containing umbilical hernia. CT/CT abdomen pelvis w con* [id number] IMPRESSION: Diverticulosis, without acute diverticulitis. No small bowel obstruction. No free air. Moreno catheter terminates in the urinary bladder. COMMENTS: Consistent with the [employer]'s Incidental Findings Committee white paper (J Am Aung Radiol 2018): Any incidental renal lesion less than 1 cm or classified as too small to characterize, or any incidental cystic renal lesion characterized as simple-appearing, is likely benign. No follow-up imaging is recommended for these lesions per consensus recommendations based on imaging criteria.
[2025-09-14 21:42] VITALS: BP 176/82; PULSE 84; RESP 17; TEMP 37; O2SAT 93
[2025-09-14 21:48] LABS: Hematocrit 38.6 % (37-53); Hemoglobin 12.80 g/dL (11.27-16.99); Mean Corpuscular HGB Conc 33.2 g/dL (30-55); Mean Corpuscular Hemoglobin 29.2 pg (27-33); Mean Corpuscular Volume 87.9 fl (82-101); Nucleated Red Blood Cells % 0 %; Platelet Count 167 10^3/cmm (157-399); Red Blood Count 4.39 10^6/uL (3.85-5.65); White Blood Count 10.52 10^3/uL (3.29-11.43)
--- NOTE | 2025-09-14 22:09 | W.ED.ABDPA2 ---
HPI - Abdominal Pain General: Chief Complaint: Abdominal Pain Stated Complaint: ABD PAIN Time Seen by Provider: 09/14/25 21:31 Source: patient Mode of arrival: ambulatory Limitations: no limitations History of Present Illness: The patient is a 89-year-old male presents the emergency department by ambulance for lower abdominal pain for the past couple of days. He is from [facility], reportedly has been constipated for 3 days and also inability to urinate. He does not report to me any history of prostate issues, he has not been running fevers, he does note pretty significant lower abdominal pain however as well as distention. He is actively attempting to urinate at bedside but states he just cannot go. His vitals overall are unremarkable. He does report some pain in the rectum. States that he has never had this issue before in the past. No nausea or vomiting, no diarrhea. MD elicited complaint: abdominal pain Pertinent past history: constipation and other (Inability to urinate) Onset (ago): day(s) Pain Consistency: constant Location: Suprapubic Severity: moderate Quality: fullness Associated Symptoms: Reports constipation; Denies bloating, change in stool character, chills, diarrhea, fever(s), hematochezia, nausea and vomiting Related Data Home Medications ?Medication ?Instructions ?Recorded ?Confirmed metformin 500 mg tablet 500 mg PO BID 12/25/24 06/25/25 mirtazapine 45 mg tablet 45 mg PO BEDTIME 12/25/24 06/25/25 omeprazole 20 mg capsule,delayed 20 mg PO BID 12/25/24 06/25/25 release tamsulosin 0.4 mg capsule 0.4 mg PO BEDTIME 12/25/24 06/25/25 Previous Rx's ?Medication ?Instructions ?Recorded lancets 28 gauge (FreeStyle #100 ea 01/17/21 Lancets) Nebulizer with supplies #1 ea 07/16/23 sodium chloride 1,000 mg soluble 1,000 mg PO DAILY 30 days #30 tabs 01/19/25 tablet lisinopril 10 mg tablet See Rx Instructions .Route 02/09/25 .COMPLEX #90 tabs metoprolol tartrate 50 mg tablet See Rx Instructions .Route 02/09/25 .COMPLEX #180 tabs simvastatin 40 mg tablet See Rx Instructions .Route 02/09/25 .COMPLEX #90 tabs finasteride 5 mg tablet See Rx Instructions .Route 03/19/25 .COMPLEX #90 tabs albuterol sulfate 90 mcg/actuation 1 inh inhalation Q6H PRN shortness 04/10/25 aerosol inhaler (Ventolin HFA) of breath or wheezing #8.5 grams fluticasone 100 mcg-salmeterol 50 1 inh inhalation DAILY #60 ea 04/10/25 mcg/dose blistr powdr for inhalation (Advair Diskus) insulin lispro 100 unit/mL See Rx Instructions .Route 04/10/25 subcutaneous solution (Humalog .COMPLEX #10 mL U-100 Insulin) cefdinir 300 mg capsule 300 mg PO BID 10 days #20 caps 09/15/25 Allergies Allergy/AdvReac Type Severity Reaction Status Date / Time sulfamethoxazole (From Allergy swelling Verified 06/25/25 12:09 Bactrim) trimethoprim (From Bactrim) Allergy swelling Verified 06/25/25 12:09 Review of Systems General: Reports: 10 or more systems reviewed and unremarkable except in HPI and below Const: Denies: fever(s), chills, change in appetite, change in weight or diaphoresis ENMT: Denies: throat pain or hoarseness Card: Denies: chest pain, palpitations or lightheadedness Resp: Denies: dyspnea, productive cough or wheezing GI: Reports: abdominal pain, constipation and rectal pain; Denies: nausea, vomiting, diarrhea, bloating, change in stool character or hematochezia : Reports: difficulty urinating and urinary hesitancy; Denies: flank pain Musc: Reports: back pain; Denies: neck pain Skin/Breast: Denies: rash or new lesions Neuro: Denies: headache(s) or dizziness PFSH ED PFSH: Medical History Hyponatremia Adenocarcinoma of right lung BPH (benign prostatic hyperplasia) Type 2 diabetes mellitus Family History Other Cancer Social History Smoking and tobacco/nicotine status: never used tobacco/nicotine Quit status (tobacco/nicotine): has quit using Year quit tobacco: 1984 Former quit date comment: After pack per day for 20 years Alcohol intake: former Year of sobriety/quit date alcohol: None Former alcohol use details: Previous occasional beer Substance/Drug Use: never Additional social history: DNR as discussed with Diego Fowler MD on 04/07/2025 patient states he is when his 3 years ago. 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64 Do you think of yourself as: Straight/Heterosexual Current gender identity: Male Physical Exam Const: COMMON NORMALS: no acute distress, average body habitus, patient oriented x3, no limitations, healthy appearing, alert and well nourished GENERAL APPEARANCE: cooperative and comfortable ORIENTATION/CONSCIOUSNESS: Yes awake Resp: COMMON NORMALS: normal respiratory effort, No retractions, No use of accessory muscles and clear to auscultation bilaterally AUSCULTATION: clear to auscultation bilaterally, no crackles, no rales, no rhonchi and no wheezes Cardio: COMMON NORMALS: regular rate, regular rhythm, S1 normal heart sound present, S2 normal heart sound present, No gallops present (Cardio), No clicks present (Cardio), No murmurs present (Cardio), No rub (Cardio) and Peripheral pulses 2+ throughout RATE: regular rate RHYTHM: regular rhythm HEART SOUNDS: S1 normal heart sound present and S2 normal heart sound present PERIPHERAL PULSES: Peripheral pulses 2+ throughout GI: COMMON NORMALS: No hepatosplenomegaly present and no masses INSPECTION: Yes central obesity AUSCULTATION: Yes normoactive bowel sounds PALPATION: Yes Tenderness to palpation present (GI) Details: LLQ and RLQ, No Guarding due to palpation present (GI), No Rigid due to palpation and Yes No hepatosplenomegaly present RECTAL EXAM: Yes deferred : COMMON NORMALS: Yes no CVA tenderness BLADDER/KIDNEY EXAM: Yes no CVA tenderness Back/Pelvis: COMMON NORMALS: no CVA tenderness Extremity: COMMON NORMALS: normal to inspection and full ROM Neuro: COMMON NORMALS: patient oriented x3, moves all extremities, no focal motor deficits and no sensory deficits noted SENSORIUM/ORIENTATION: Yes alert Psych: COMMON NORMALS: mental status grossly normal, cooperative and speech normal SPEECH: Yes normal speech Skin: COMMON NORMALS: no rashes or lesions noted GENERAL SKIN EXAM: no rashes or lesions noted Course Vital Signs: Vital signs: Vital Signs Temperature 98.6 F 09/14/25 21:42 Pulse Rate 84 09/14/25 21:42 Respiratory Rate 17 09/14/25 21:42 Blood Pressure 126/64 09/14/25 22:10 Pulse Oximetry 93 09/14/25 22:10 Oxygen Delivery Me thod Room Air 09/14/25 22:10 MDM - Abdominal Pain Medical Decision Making [facility], lower abdominal pain and fullness, and some rectal pain. On exam nontoxic-appearing, vital stable though tender to palpation of lower abdomen. Moreno catheter placed and he drained significant amount of urine, stating that his pain is completely resolved. Lab work unremarkable but does show signs of urinary tract infection from his urine. CT scan of the abdomen and pelvis showing no acute abnormalities otherwise. Will treat for UTI, indwelling Moreno catheter is left for further symptomatic relief and urinary drainage and ultimately he will be allowed discharge back to [facility] with return precautions given. He agrees with this plan. Lab Data 09/14/25 21:41 09/14/25 21:41 Labs/Radiology: Radiology Impressions Abdomen/Pelvis CT 09/14/25 21:35 IMPRESSION: Diverticulosis, without acute diverticulitis. No small bowel obstruction. No free air. Moreno catheter terminates in the urinary bladder. COMMENTS: Consistent with the [employer]'s Incidental Findings Committee white paper (J Am Aung Radiol 2018): Any incidental renal lesion less than 1 cm or classified as too small to characterize, or any incidental cystic renal lesion characterized as simple-appearing, is likely benign. No follow-up imaging is recommended for these lesions per consensus recommendations based on imaging criteria. Laboratory Results WBC 10.52 10^3/uL (3.29-11.43) 09/14/25 21:41 RBC 4.39 10^6/uL (3.85-5.65) 09/14/25 21:41 Hgb 12.80 g/dL (11.27-16.99) 09/14/25 21:41 Hct 38.6 % (37-53) 09/14/25 21:41 MCV 87.9 fl (82-101) 09/14/25 21:41 MCH 29.2 pg (27-33) 09/14/25 21:41 MCHC 33.2 g/dL (30-55) 09/14/25 21:41 RDW 13.2 % (12.1-15.1) 09/14/25 21:41 Plt Count 167 10^3/cmm (157-399) 09/14/25 21:41 MPV 10.3 fL (7.4-10.4) 09/14/25 21:41 Neut % (Auto) 80.7 % 09/14/25 21:41 Lymph % (Auto) 9.3 % 09/14/25 21:41 [place] % (Auto) 9.4 % 09/14/25 21:41 Eos % (Auto) 0.2 % 09/14/25 21:41 Baso % (Auto) 0.1 % 09/14/25 21:41 Neut # (Auto) 8.49 10^3/uL (1.8-7.7) H 09/14/25 21:41 Lymph # (Auto) 1.0 10^3/uL (0.8-4.8) 09/14/25 21:41 [place] # (Auto) 1.0 10^3/uL (0.2-0.9) H 09/14/25 21:41 Eos # (Auto) 0.0 10^3/uL (0.0-0.8) 09/14/25 21:41 Baso # (Auto) 0.0 10^3/uL (0.0-0.1) 09/14/25 21:41 Nucleated RBC % (auto) 0 % 09/14/25 21:41 Nucleated RBCs # 0.0 /100WBC 09/14/25 21:41 Sodium 138 mmol/L (136-145) 09/14/25 21:41 Potassium 4.1 mmol/L (3.5-5.1) 09/14/25 21:41 Chloride 103 mmol/L (98-107) 09/14/25 21:41 Carbon Dioxide 21 mmol/L (22-29) L 09/14/25 21:41 Anion Gap 18.1 (5-19) 09/14/25 21:41 BUN 15 mg/dL (8-23) 09/14/25 21:41 Creatinine 0.6 mg/dL (0.7-1.2) L 09/14/25 21:41 GFR Calculation Not Reportable 09/14/25 21:41 Glucose 149 mg/dL (65-115) H 09/14/25 21:41 Calculated Osmolality 290 mOsm/kg (285-295) 09/14/25 21:41 Calcium 9.5 mg/dL (8.5-10.5) 09/14/25 21:41 Total Bilirubin 0.2 mg/dL (0.15-1.2) 09/14/25 21:41 AST 12 U/L (0-40) 09/14/25 21:41 ALT 9 U/L (0-41) 09/14/25 21:41 Alkaline Phosphatase 83 U/L (40-130) 09/14/25 21:41 Total Protein 7.0 g/dL (6.6-8.7) 09/14/25 21:41 Albumin 4.1 g/dL (3.5-5.2) 09/14/25 21:41 Globulin 2.9 g/dL (1.3-4.6) 09/14/25 21: Lipase 20 U/L (13-60) 09/14/25 21:41 Urine Color Yellow (Yellow) 09/14/25 22: Urine Appearance Clear (CLEAR) 09/14/25 22: Urine pH 6.5 (5-7) 09/14/25 22: Ur Specific [place] 1.018 (1.005-1.030) 09/14/25 22: Urine Protein Trace (Negative) A 09/14/25 22: Urine Glucose (UA) Negative (Normal) 09/14/25 22: Urine Ketones Negative (Negative) 09/14/25: Urine Blood 3+ (Negative) A 09/14/25: Urine Nitrate Negative (Negative) 09/14/25: Urine Bilirubin Negative (Negative) 09/14/25: Urine Urobilinogen 1.0 mg/dL (Negative) 09/14/25: Ur Leukocyte Esterase 2+ (Negative) A 09/14/25: Urine RBC >100 /hpf (0-2) H 09/14/25 22:27 Urine WBC 21-50 /hpf (0-5) H 09/14/25 22:27 Ur Squamous Epith Cells 0-5 /hpf (0-5) 09/14/25 22:27 Amorphous Sediment Not Reportable 09/14/25 22:27 Urine Bacteria None seen /hpf (NONE) 09/14/25 22:27 Hyaline Casts 0.81 /lpf 09/14/25 22:27 All radiology interpretation(s) finalized by discharge Discharge Plan Discharge Patient Disposition: Home Clinical Impression: Acute urinary retention Urinary tract infection Qualifiers: Urinary tract infection type: acute cystitis Hematuria presence: with hematuria Qualified Code(s): N30.01 - Acute cystitis with hematuria Condition: Stable Prescriptions: New cefdinir 300 mg capsule 300 mg PO BID 10 Days Qty: 20 0RF No Action (DME) Nebulizer with supplies See Rx Instructions .Route .MEDSUPPLY Qty: 1 0RF Rx Instructions: As directed (DME) lancets [FreeStyle Lancets] 28 gauge misc See Rx Instructions .ROUTE .MEDSUPPLY Qty: 100 0RF Rx Instructions: test once daily sodium chloride 1,000 mg tablet,soluble 1,000 mg PO DAILY 30 Days Qty: 30 0RF lisinopril 10 mg tablet See Rx Instructions .ROUTE .COMPLEX Qty: 90 1RF Dose Instruction: TAKE 1 TABLET DAILY Rx Instructions: TAKE 1 TABLET DAILY simvastatin 40 mg tablet See Rx Instructions .ROUTE .COMPLEX Qty: 90 1RF Dose Instruction: TAKE 1 TABLET DAILY Rx Instructions: TAKE 1 TABLET DAILY metoprolol tartrate 50 mg tablet See Rx Instructions .ROUTE .COMPLEX Qty: 180 1RF Dose Instruction: TAKE 1 TABLET TWICE A DAY Rx Instructions: TAKE 1 TABLET TWICE A DAY finasteride 5 mg tablet See Rx Instructions .ROUTE .COMPLEX Qty: 90 3RF Dose Instruction: TAKE 1 TABLET DAILY Rx Instructions: TAKE 1 TABLET DAILY metformin 500 mg tablet 500 mg PO BID tamsulosin 0.4 mg capsule 0.4 mg PO BEDTIME omeprazole 20 mg capsule,delayed release(DR/EC) 20 mg PO BID mirtazapine 45 mg tablet 45 mg PO BEDTIME albuterol sulfate [Ventolin HFA] 90 mcg/actuation HFA aerosol inhaler 1 inh inhalation Q6H PRN (Reason: shortness of breath or wheezing) Qty: 8.5 0RF fluticasone propion-salmeterol [Advair Diskus] 100-50 mcg/dose blister with device 1 inh inhalation DAILY Qty: 60 0RF insulin lispro [Humalog U-100 Insulin] 100 unit/mL Solution See Rx Instructions .ROUTE .COMPLEX Qty: 10 0RF Rx Instructions: Inject, subcut, 3 times daily, after meals, based on low-dose insulin sliding scale Discharge Orders: Discharge ED (Routine); Ordered 09/15/25 Ordered By: Jeremie Light Referrals: Steph Adams FNP [Primary Care Provider, Family Practice] Patient Instructions: Patient Portal & Kevin Instructions Activity Restrictions/Additional Instructions: Antibiotics as prescribed. MiraLAX for constipation. Plenty of fluids. Continue taking other medications. Please follow-up with your primary care provider and return with any new or worsening. Print Language: Urdu Coding Level of Care Code ED Communications Tower Technician for Leticia Myers
[2025-09-14 22:10] VITALS: BP 126/64; O2SAT 93
[2025-09-14 22:12] LABS: Alanine Aminotransferase 9 U/L (0-41); Albumin Level 4.1 g/dL (3.5-5.2); Alkaline Phosphatase 83 U/L (40-130); Aspartate Amino Transferase 12 U/L (0-40); Blood Urea Nitrogen 15 mg/dL (8-23); Calcium 9.5 mg/dL (8.5-10.5); Carbon Dioxide 21 mmol/L (22-29); Chloride 103 mmol/L (98-107); Globulin 2.9 g/dL (1.3-4.6); Glucose 149 mg/dL (65-115); Lipase 20 U/L (13-60); Osmolality Calculated 290 mOsm/kg (285-295); Sodium 138 mmol/L (136-145); Total Protein 7.0 g/dL (6.6-8.7)
[2025-09-14 22:15] LABS: Anion Gap 18.1 (5-19); Potassium 4.1 mmol/L (3.5-5.1)
[2025-09-14] MEDS: iohexol 350 mg/mL 500 mL Btl (per mL) IV (22:34)
[2025-09-14 22:43] LABS: Glucose Urine UA Negative (Normal); Nitrate Urine Negative (Negative); Specific Gravity, Urine 1.018 (1.005-1.030)
[2025-09-14 22:48] LABS: Add Urine Microscopic? YES
[2025-09-15] VITALS (8 sets, daily range): BP systolic 107–153; BP diastolic 42–98; PULSE 78–93; RESP 18; TEMP 36.3; O2SAT 91–94
[2025-09-15] MEDS: morphine 4 mg/mL SDV 1 mL 2 MG IVP (00:36)
[2025-09-15] MEDS: cefTRIAXone 1,000 mg SDV 1000 MG IVP (00:38)
== END 2025-09-15 08:40 | disposition home or self-care (01) ==
PROVIDERS: Emergency Provider Physician Assistant; PCP Registered Nurse
DX: R33.8 Other retention of urine (principal); N30.01 Acute cystitis with hematuria; Z79.84 Long term (current) use of oral hypoglycemic drugs; Z79.4 Long term (current) use of insulin; Z87.891 Personal history of nicotine dependence; E11.9 Type 2 diabetes mellitus without complications; Z85.118 Personal history of other malignant neoplasm of bronchus and lung
CPT/HCPCS: 74177; 80053; 81001; 83690; 85025; 87086; 96374; 96375; 99285; 99291; J0696; J2270